=== PATIENT | female | born 1970 | race Two or more races ===

== ENCOUNTER 2025-03-01 10:26 | Inpatient (IN) | payer MEDICAID, SELFPAY ==
[2025-03-01] VITALS (10 sets, daily range): BP systolic 117–134; BP diastolic 68–87; PULSE 94–111; RESP 19–31; TEMP 36.3–37.4; O2SAT 85–99; BMI 31.4; BMI 30.4
--- NOTE | 2025-03-01 11:26 | XR_ITS ---
Examination: PA lateral chest 2 views TECHNIQUE: Upright PA lateral chest 2 views Exam date and time: March 01, 2025 1250 hours INDICATIONS: Coughing congestion one week. FINDINGS: Early bilateral perihilar bibasilar pneumonia. Normal heart size IMPRESSION: Early bilateral perihilar bibasilar pneumonia
--- NOTE | 2025-03-01 11:28 | PD.EDURI ---
Upper Respiratory Inf. RME/HPI General Chief Complaint: Flu Like Symptoms Stated Complaint: COUGH X3 DAYS Time Seen by Provider: 03/01/25 11:26 Source: patient Arrival date/time: 03/01/25 10:26 55-year-old female with no known medical history presents to the emergency room with a chief complaint of cough and intermittent fevers x 3 days. Mode of arrival: ambulatory Limitations: no limitations Related Data Allergies Allergy/AdvReac Type Severity Reaction Status Date / Time No Known Allergies Allergy Verified 03/01/25 10:27 ED Exam General Limitations: Present no limitations Course Orders Category Date Time Status Bedside COVID-19 Antigen Test NOW Care 03/01/25 11:26 Active Bedside Influenza A&B Antigen Test NOW Care 03/01/25 11:26 Active XR chest 2V Stat Exams 03/01/25 11:26 Ordered dexAMETHasone TAB [Decadron Tab] Med 03/01/25 11:26 Discontinued 10 mg PO X1 ONE Upper Respiratory Infection Medications / Prescriptions Medication administrations:: Medication Administration History Discontinued Medications Dexamethasone (Dexamethasone 4 Mg Tablet) 10 mg PO X1 ONE Stop: 03/01/25 11:27 Discharge Plan Patient/Caregiver Discharge Instructions Print Language: Afghan
--- NOTE | 2025-03-01 11:59 | XR_ITS ---
Examination: CTA chest with intravenous contrast 2-D reconstructions 3-D reconstructions, vascular Date and time of exam: March 01, 2025 1445 hours INDICATIONS: Onset chest pain and tachycardia today CTDI: vol (mGy) 10.1 DLP: (mGycm) 331 Technique: Multiple axial sections of the thorax have been obtained. 3 mm slice thickness, from below the hemidiaphragms to above the apices of the lungs. Mediastinal and lung density settings have been obtained. 2-D sagittal and coronal reconstructions. 3-D angiographic renderings, 3-D volume renderings, 3D post processing, vascular maximum intensity projections obtained. Contrast administered is 100 cc Isovue-370. Low dose protocols were performed. One or more of the following dose reduction techniques were used; automated exposure control, adjustment of the mA and/or KV according to patient size, use of iterative reconstruction technique. Findings: Small right tracheobronchial and precarinal lymph nodes No thoracic trachea aneurysm dilatation or dissection No pulmonary artery filling defects No paratracheal tracheobronchial or bronchopulmonary adenopathy Extensive miliary type pneumonic infiltrate throughout both lungs with a 6 mm nodule left base No focal liver or splenic lesions No gallstones noted No pancreatic or adrenal mass Kidneys partially visualized no hydronephrosis IMPRESSION: No pulmonary artery emboli Extensive miliary pneumonia pattern throughout the lungs, differential would include active tuberculosis
--- NOTE | 2025-03-01 12:00 | EKG_ITS ---
[facility] Test Date: 2025-03-01 Pat Name: BIRGIT DODGE Department: Room: - Gender: Female Mill Turner: : 1970 Requested By: Paxton Franco Order Number: [id number] Reading MD: Paxton Franco Measurements Intervals [place] Rate: 97 P: 49 LA: 133 QRS: 1 QRSD: 89 T: -48 QT: 322 QTc: 410 Interpretive Statements SINUS RHYTHM NONSPECIFIC T-WAVE ABNORMALITY No previous ECG available for comparison /store/S0/[id number].pdf
--- NOTE | 2025-03-01 12:03 | EDNOTE_ITS ---
<Statement entered by Sheryl Villa MD - 03/01/25 17:41> As co-signing physician, I was present and available for consult prn. I concur with the plan and care as documented by the midlevel provider. ED General RME/HPI General Chief complaint: Flu Like Symptoms Stated complaint: COUGH X3 DAYS Time Seen by Provider: 03/01/25 11:26 Source: patient Arrival date/time: 03/01/25 10:26 CC: Cough shortness of breath HPI ongoing for 6 days with progressive increase in severity was seen by PCP 4 days ago was started on antibiotics and cough medicine with no relief in fact it is getting worse. Patient denies fever. Patient also denies chest pain. On initial assessment patient was noted to be tachypneic with oxygen saturations at 88% and tachycardic. Mode of arrival: ambulatory Limitations: no limitations Related Data Allergies Allergy/AdvReac Type Severity Reaction Status Date / Time No Known Allergies Allergy Verified 03/01/25 10:27 Review of Systems Review of Systems Narrative Review of Systems: GEN: No fever, no chills, no weight loss EYES: No discharge, no visual changes, no pain HEENT: No ear pain, no congestion, no sore throat PULM: +shortness of breath, + cough, no congestion CV: No chest pain, no dyspnea on exertion, no palpitations GI: No nausea, no vomiting, no diarrhea, no pain, no constipation : No frequency, no urgency, no dysuria MUSC/SKEL: No joint pain, no back pain SKIN: No rash PSYCH: No hallucinations, no depression HEME/LYMPH: No easy bleeding or bruising tendencies NEURO: No weakness, no headache ED Exam Narrative Physical exam: [General: Obese in mild discomfort acute distress Head normocephalic HEENT: Within acceptable limits Neck is supple nontender Chest equal chest rise nontender to palpation Respiratory: Coarse expiratory crackles bibasilarly, tachypneic. CV: Rate rhythm is regular, tachycardic no murmurs rubs or clicks Abdomen is distended secondary to body habitus soft nontender no masses positive bowel sounds all 4 quadrants Back: No CVA tenderness no spinous process tenderness from cervical spine thoracic and lumbar spine Skin: Intact no petechiae rash induration ulceration or crepitus Extremities: Moving all extremity against resistance cap refill less than 2 seconds neurosensory intact. No lower extremity edema Neuro: Awake alert oriented x3 Glascow coma 15 no focal deficits] General Limitations: Present no limitations Course Quality Measures none Orders Category Date Time Status Bedside COVID-19 Antigen Test NOW Care 03/01/25 11:26 Active Bedside COVID-19 Antigen Test NOW Care 03/01/25 15:14 Active Bedside Influenza A&B Antigen Test NOW Care 03/01/25 11:26 Active Bedside Influenza A&B Antigen Test NOW Care 03/01/25 15:[address] Screening NOW Care 03/01/25 12:00 Active EKG (ED ONLY) *Do not use* NOW Care 03/01/25 12:[address] angio chest Stat Exams 03/01/25 11:59 Completed EKG (ED Only) Stat Exams 03/01/25 12:00 Draft XR chest 2V Stat Exams 03/01/25 11:26 Completed B-Type Natriuretic Peptide Stat Lab 03/01/25 12:12 Completed CBC Stat Lab 03/01/25 12:12 Completed Cocci Serology IgM with reflex to IgG [Cocci Serology, Lab 03/01/25 12:12 Results Unk History] Stat Comprehensive Metabolic Panel Stat Lab 03/01/25 12:12 Completed Drug Screen,Urine Stat Lab 03/01/25 12:00 Completed HCG Qualitative,Urine Stat Lab 03/01/25 12:25 Completed LDH (Lactate Dehydrogenase) Stat Lab 03/01/25 12:12 Completed Magnesium Stat Lab 03/01/25 12:12 Completed Partial Thromboplastin Time Stat Lab 03/01/25 12:12 Completed Prothrombin Time with INR Stat Lab 03/01/25 12:12 Completed Quantiferon-TB* Stat Lab 03/01/25 15:15 Ordered Troponin I Stat Lab 03/01/25 12:12 Completed Urinalysis Stat Lab 03/01/25 12:25 Completed Urinalysis, C/S if Indicated Stat Lab 03/01/25 12:25 Completed ALBUTEROL RT 0.5ml [Proventil Rt 0.5ml] Med 03/01/25 13:10 Discontinued 10 mg INH X1 ONE Albuterol/Ipratr Rt Oriana [Duoneb Rt Oriana] Med 03/01/25 11:59 Discontinued 3 ml INH X1 ONE Sodium Chloride Rt Oriana 0.9% [NS Rt Oriana 0.9%] Med 03/01/25 13:10 Active 3 ml INH PRN PRN cefTRIAXone/D5w 1gm IV premix [Rocephin/D5w 1gm IV Med 03/01/25 12:07 Discontinued premix] 1 gm in 50 ml IV X1 dexAMETHasone TAB [Decadron Tab] Med 03/01/25 11:26 Discontinued 10 mg PO X1 ONE Vital Signs Vital signs: Vital Signs Temperature 99.3 F 03/01/25 11:39 Pulse Rate 105 H 03/01/25 11:39 Respiratory Rate 19 03/01/25 11:39 Blood Pressure 127/68 03/01/25 11:39 Pulse Oximetry (%) 85 L 03/01/25 11:39 Oxygen Delivery Method Room Air 03/01/25 11:39 [facility] Patient data External records reviewed:: [facility] previous records Clinical information provided by:: patient Social determinants that could affect healthcare access:: none Patient has the following chronic illnesses:: Diabetes How is presenting disease/condition affected by chronic disease/condition?: u neffected by Evaluation data The following diagnostics were reviewed and interpreted by me:: lab results, radiology exam(s) and EKG tracing(s) Lab and/or radiology exams considered but not ordered:: EKG performed at 1235 shows ventricular rate of 97 WA interval 133 QRS of 89 QTc of 377 is a sinus rhythm nonspecific T wave abnormality. CBC shows no leukocytosis anemia thrombocytopenia Coags show PT of 12.6 INR PTT within acceptable limits. BMP shows no acute electrolyte imbalances renal impairment transaminitis or T. bili elevation Troponin is within acceptable limits BMP is within acceptable limits. Urine is negative for UTI UDS is negative. CT angio chest shows the patient has not miliary pneumonia pattern. Need to rule out tuberculosis and valley fever. Interpretation Summary: Patient is requiring an additional hour-long breathing treatment secondary to shortness of breath. The patient is now on a simple mask at 6 L with oxygen saturation 91-92%. I am concerned that this patient continues to have hypoxemia. Patient remains mildly tachypneic and mildly tachycardic with a progressive increase in oxygen demand. Currently the patient is on simple mask at 6+ liters. Patient's case discussed with , who agrees to accept the patient for admission for pneumonia hypoxemia Medications Medications considered but not ordered:: None Medication administrations:: Medication Administration History Sodium Chloride (Sodium Chloride Rt Oriana 0.9% 3 Ml Nebu) 3 ml INH PRN PRN PRN Reason: SOLN Stop: 03/31/25 13:09 Discontinued Medications Albuterol (Albuterol Rt 2.5 Mg/0.5 Ml Nebu) 10 mg INH X1 ONE Stop: 03/01/25 13:11 Last Admin: 03/01/25 13:19 Dose: 10 mg Documented By: SUMIT Albuterol/Ipratropium (Albuterol/Ipratropium (Duoneb) Rt Oriana 3 Ml Nebu) 3 ml INH X1 ONE Stop: 03/01/25 12:00 Last Admin: 03/01/25 12:29 Dose: 3 ml Documented By: GLENNA Dexamethasone (Dexamethasone 4 Mg Tablet) 10 mg PO X1 ONE Stop: 03/01/25 11:27 Last Admin: 03/01/25 12:10 Dose: 10 mg Documented By: KARSON Ceftriaxone Sodium/Dextrose (Rocephin/D5w 1gm Iv Premix) 1 gm in 50 mls @ 100 mls/hr IV X1 ONE Stop: 03/01/25 12:36 Last Infusion: 03/01/25 13:23 Dose: Infused Documented By: Admin: 03/01/25 12:53 Dose: 100 mls/hr Documented By: KARSON None Consultations Consultation(s) initiated? (list below): No Diagnosis Differential Diagnosis ED Complaint MDM: Cough, pneumonia, shortness of breath, hypoxemia Most likely diagnosis given after review of the tests above:: Pneumonia, hypoxemia, shortness of breath, cough Admission Indicated Admission indicated?: indicated Explain why admission is indicated or not indicated:: Requires further medical management Admission Request Was there a request for admission?: No Disposition Plan Disposition Plan: Admit Medical Decision Making Differential Diagnosis Differential Diagnosis: Cough, pneumonia, shortness of breath, hypoxemia Lab Data 03/01/25 12:12 03/01/25 12:12 Labs: Lab Results 03/01/25 03/01/25 03/01/25 Range/Units 12:00 12:12 12:25 WBC 7.0 (3.6-11.0) Thou/mm3 RBC 4.22 (4.00-5.20) Miln/mm3 Hgb 12.4 (12.0-16.0) g/dL Hct 37.7 (36.0-46.0) % MCV 89 (80-100) fL MCH 29.4 (25.0-35.0) pg MCHC 32.9 (31.0-37.0) g/dl RDW Std Deviation 40.7 (36.4-46.3) fL Plt Count 258 (140-440) Thou/mm3 Neut % (Auto) 85 H (37-80) % Lymph % (Auto) 9 L (10-50) % [place] % (Auto) 5 (0-12) % Eos % (Auto) 1 (0-10) % Baso % (Auto) 0 (0-2.5) % Neut # (Auto) 5.9 (1.8-7.7) Thou/mm3 Lymph # (Auto) 0.7 L (1.0-4.8) Thou/mm3 [place] # (Auto) 0.3 (0.0-0.8) Thou/mm3 Eos # (Auto) 0.0 (0.0-0.5) Thou/mm3 Baso # (Auto) 0.0 (0.0-0.2) Thou/mm3 Immature Gran # (Auto) 0.05 H (0.00-0.00) Thou/mm3 Absolute Nucleated RBC 0.00 (0.00-0.00) Thou/mm3 Immature Gran % 1 H (0-0) % Nucleated RBC % 0 (0) /100 WBC PT 12.6 H (9.0-12.2) Seconds INR 1.2 (0.9-1.3) APTT 34.2 (22.0-36.0) Seconds Sodium 140 (136-145) mMol/L Potassium 3.5 (3.4-5.1) mMol/L Chloride 104 (98-107) mMol/L Carbon Dioxide 27.7 (20.0-31.0) mMol/L Anion Gap 8 (7-16) BUN 6 L (9-23) mg/dL Creatinine 0.7 (0.6-1.3) mg/dL Estim Creat Clear Calc 96.9 (>60) mL/min eGFR > 60 (60 - ) See Note BUN/Creatinine Ratio 9 L (12-20) Ratio Glucose 138 H (74-106) mg/dL Calculated Osmolality 279 (275-295) Calcium 9.4 (8.3-10.6) mg/dL Corrected Calcium 9.4 (8.5-10.1) mg/dL Magnesium 2.2 (1.6-2.6) mg/dL Total Bilirubin 0.4 (0.3-1.2) mg/dL AST 28 (0-34) U/L ALT 24 (10-49) U/L Alkaline Phosphatase 119 H (46-116) U/L Lactate Dehydrogenase 234 (120-246) U/L Troponin I < 0.002 (0.0-0.045) ng/mL B-Natriuretic Peptide < 20 (0-100) pg/mL Total Protein 7.4 (5.7-8.2) gm/dL Albumin 4.6 (3.5-5.0) gm/dL Globulin 2.8 (2.3-3.5) gm/dL Albumin/Globulin Ratio 1.6 (1.2-2.2) Ur Collection Type Clean Catch Urine Color Colorless A (Lt Yel-Yel) Urine Clarity Clear (Clear/Hazy) Urine pH 6.5 (5.0-7.0) Ur Specific [place] 1.007 (1.001-1.035) Urine Protein Negative (Neg - Trace) Urine Glucose (UA) Negative (Negative) Urine Ketones Negative (Negative) Urine Blood Negative (Negative) Urine Nitrite Negative (Negative) Urine Bilirubin Negative (Negative) Urine Urobilinogen (Auto) Negative (0.0-1.0) mg/dL Ur Leukocyte Esterase Negative (Negative) Urine RBC < 1 (0-3) /hpf Urine WBC < 1 (0-5) /hpf Ur Squamous Epith Cells 0 (0-5) /hpf Urine Bacteria None (None) Ur Culture Indicated? Not Indicated Urine HCG, Qual Negative Urine Opiates Screen Negative (Negative) Urine Fentanyl Screen Negative (Negative) Ur Barbiturates Screen Negative (Negative) U Amphetamin/Meth Scrn Negative (Negative) U Benzodiazepines Scrn Negative (Negative) U Cocaine Metab Screen Negative (Negative) U Marijuana (THC) Screen Negative (Negative) Coccidioides IgM Ab Negative (Negative) Discharge Plan Plan Patient Disposition: Other Care w/in Hosp ([facility]) Patient condition on transfer: Stable Prescriptions/Referrals Referrals: Mere Estrada NP [Primary Care Provider] - In 1 week Problem List Clinical Impression: Cough, Pneumonia, Shortness of breath, Hypoxemia Patient/Caregiver Discharge Instructions Print Language: Portuguese Stand Alone Forms: [employer] Award Info., Patient Portal Info Letter PA/WAREHOUSE HANDLER Supervising Physician PA/WAREHOUSE HANDLER Supervising Physician: Paxton Walker ENP
[2025-03-01] MEDS: dexAMETHasone 4 MG TABLET 10 MG PO (12:10)
[2025-03-01 12:27] LABS: Basophils % (Auto) 0 % (0-2.5); Eosinophils % (Auto) 1 % (0-10); Hematocrit 37.7 % (36.0-46.0); Hemoglobin 12.4 g/dL (12.0-16.0); Immature Granulocytes % (Auto) 1 % (0-0); Immature Granulocytes Auto 0.05 Thou/mm3 (0.00-0.00); Lymphocytes # (Auto) 0.7 Thou/mm3 (1.0-4.8); Lymphocytes % (Auto) 9 % (10-50); Mean Corpuscular HGB Conc 32.9 g/dl (31.0-37.0); Mean Corpuscular Hemoglobin 29.4 pg (25.0-35.0); Mean Corpuscular Volume 89 fL (80-100); Monocytes # (Auto) 0.3 Thou/mm3 (0.0-0.8); Monocytes % (Auto) 5 % (0-12); Neutrophils # (Auto) 5.9 Thou/mm3 (1.8-7.7); Neutrophils % (Auto) 85 % (37-80); Nucleated Red Blood Cell % 0 /100 WBC (0); Platelet Count 258 Thou/mm3 (140-440); RDW Standard Deviation 40.7 fL (36.4-46.3); Red Blood Count 4.22 Miln/mm3 (4.00-5.20)
[2025-03-01] MEDS: ALBUTEROL/IPRATROPIUM (Duoneb) RT SOL 3 ML NEBU INH (12:29)
[2025-03-01 12:33] LABS: Collection Type, Urine Clean Catch; Squamous Epithelial Cell,Urine 0 /hpf (0-5)
--- NOTE | 2025-03-01 12:42 | PD.EDRME ---
Rapid Medical Screening Exam E Arrival date/time: 03/01/25 10:26 55-year-old female with no known medical history presents to the emergency room with a chief complaint of cough and intermittent fevers x 3 days. I have greeted and performed a focused initial assessment of this patient. A comprehensive ED assessment and evaluation of the patient, analysis of all test results, and completion of the medical decision making process will be conducted by additional ED providers. Chief Complaint: Flu Like Symptoms Time Seen by Provider: 03/01/25 11:26 Vital signs: Vital Signs Temperature 99.3 F 03/01/25 11:39 Pulse Rate 105 H 03/01/25 11:39 Respiratory Rate 19 03/01/25 11:39 Blood Pressure 127/68 03/01/25 11:39 Pulse Oximetry (%) 85 L 03/01/25 11:39 Oxygen Delivery Method Room Air 03/01/25 11:39 Vital signs reviewed by provider: Yes
[2025-03-01 12:49] LABS: Alanine Aminotransferase 24 U/L (10-49); Albumin, Serum 4.6 gm/dL (3.5-5.0); Albumin/Globulin Ratio 1.6 (1.2-2.2); Alkaline Phosphatase 119 U/L (46-116); Anion Gap 8 (7-16); Aspartate Amino Transferase 28 U/L (0-34); BUN/Creatinine Ratio 9 Ratio (12-20); Bilirubin,Total 0.4 mg/dL (0.3-1.2); Blood Urea Nitrogen 6 mg/dL (9-23); Calcium 9.4 mg/dL (8.3-10.6); Calcium (Corrected) 9.4 mg/dL (8.5-10.1); Carbon Dioxide 27.7 mMol/L (20.0-31.0); Chloride 104 mMol/L (98-107); Creatinine (Component) 0.7 mg/dL (0.6-1.3); Estimated Creatinine Clearance 96.9 mL/min (>60); Globulin 2.8 gm/dL (2.3-3.5); Glucose 138 mg/dL (74-106); LDH (Lactate Dehydrogenase) 234 U/L (120-246); Magnesium 2.2 mg/dL (1.6-2.6); Osmolality,Calculated 279 (275-295); Potassium 3.5 mMol/L (3.4-5.1); Sodium 140 mMol/L (136-145); Total Protein 7.4 gm/dL (5.7-8.2); Troponin I < 0.002 ng/mL (0.0-0.045); eGFR > 60 See Note
[2025-03-01 12:51] LABS: Bilirubin,Urine Negative (Negative); Blood,Urine Negative (Negative); Clarity,Urine Clear (Clear/Hazy); Color,Urine Colorless (Lt Yel-Yel); Culture Indicated,Urine Not Indicated; Glucose, Urine Negative (Negative); Ketones,Urine Negative (Negative); Leukocyte Esterase,Urine Negative (Negative); Nitrite,Urine Negative (Negative); PH,Urine 6.5 (5.0-7.0); Protein,Urine Negative (Neg - Trace); RBC,Urine < 1 /hpf (0-3); Specific Gravity,Urine 1.007 (1.001-1.035); Urobilinogen,Urine Negative mg/dL (0.0-1.0); WBC,Urine < 1 /hpf (0-5)
[2025-03-01] MEDS: cefTRIAXone/D5w 1gm IV premix 1 GM/50 ML BAG IV (12:53)
[2025-03-01 12:54] LABS: INR 1.2 (0.9-1.3); Partial Thromboplastin Time 34.2 Seconds (22.0-36.0); Prothrombin Time 12.6 Seconds (9.0-12.2)
[2025-03-01 12:56] LABS: B-Type Natriuretic Peptide < 20 pg/mL (0-100)
[2025-03-01 13:00] LABS: HCG Qualitative,Urine Negative
[2025-03-01 13:12] LABS: Amphetamine/Methamp Scrn,U Negative (Negative); Barbiturate Screen,Urine Negative (Negative); Benzodiazepines Screen,Urine Negative (Negative); Benzoylecgonine Screen, Ur Negative (Negative); Fentanyl Screen,Urine Negative (Negative); Opiate Screen,Urine Negative (Negative); THC Screen,Urine Negative (Negative)
[2025-03-01] MEDS: ALBUTEROL RT 2.5 MG/0.5 ML NEBU 10 MG INH (13:19)
--- NOTE | 2025-03-01 14:05 | PC.NURSE ---
CALLED CT AND SPOKE W/ JUS RE: WHEN PT WILL BE TAKEN. SHE IS NEXT. PROVIDER INFORMED.
[2025-03-01 14:49] LABS: Cocci Serology, IgM Negative (Negative)
--- NOTE | 2025-03-01 16:37 | ESHP_ITS ---
<Statement entered by Lizandro Gilmore MD - 03/03/25 07:58> Senior Resident Attestation: I supervised/discussed management plan with sport intern physician Dr. Griffith, and was involved in the care of this patient. I personally saw and examined the patient and discussed the assessment and plan with the entire medicine team, including my attending. I agree with the assessment and plan as documented. Patient's care was discussed with attending physician, Dr. Owen. Lizandro Gilmore MD PGY-2. Documentation for date of: 03/01/25 HPI History of Present Illness History of present illness: 55-year-old female with significant past medical history of diabetes mellitus on metformin presented to the hospital with chief complaints of fever, shortness of breath and cough since 4 days. Patient was apparently not been 4 days ago, later patient developed cough with expectoration which is yellow in color, denies hemoptysis which is gradually worsening for which she went to the [facility] and was started on antibiotics, amoxicillin/clavulanate. Despite taking antibiotics, cough syrup cough and shortness of breath continued to worsen and the patient also started to develop febrile episodes for which patient came to the ED. Denies chest pain, nausea, vomiting, abdominal pain, palpitations, sick contacts, recurrent respiratory tract infections Patient immigrated from [place] 4 years ago and since then stayed here, works in [employer] ED course: - vitals at the time of admission are blood pressure 127/68 mmHg, pulse rate 105 bpm, respiratory rate 19/min, Temperature 99.3 ?F, SpO2 85% with room air - Labs showed WBC 7, hemoglobin 12.4, platelets 258, sodium 140, potassium 3.5, BUN 6, creatinine 0.7, BNP <20 - Urine toxicology tested negative - Chest CTA showed extensive miliary type pneumonia, negative for pulmonary embolism Past medical history: Diabetes mellitus Past surgical history: 2 sections Social history: Denies smoking, alcohol, other illicit drug abuse. Lives with at home Allergies: NKDA Review of Systems Review of Systems Systems Reviewed: All systems reviewed, normal except as documented Exam Vital Signs Temp Pulse Resp BP Pulse Ox O2 Del Method O2 Flow Rate 98 F 111 H 24 H 129/76 89 L Oxy Mask 7 03/01/25 14:16 03/01/25 14:16 03/01/25 14:16 03/01/25 14:16 03/01/25 14:16 03/01/25 14:16 03/01/25 14:16 Narrative Exam General: Awake. On oxy mask HEENT: Normocephalic, atraumatic, mucous membranes moist. Heart: Regular rate and rhythm, no murmurs. Lungs: bilateral fine inspiratory crackles heard more on the right basilar areas Abdomen: Soft, nondistended, nontender, positive bowel sounds. ?No guarding or rebound tenderness. Neurologic: Alert and oriented x3, no gross neurological deficit, and patient able to move all 4 extremities. Extremities: No edema. Skin: No rash or ecchymoses. Results: Labs 03/02/25 04:57 03/02/25 04:57 Labs: Short CBC 03/01/25 Range/Units 12:12 WBC 7.0 (3.6-11.0) Thou/mm3 Hgb 12.4 (12.0-16.0) g/dL Hct 37.7 (36.0-46.0) % Plt Count 258 (140-440) Thou/mm3 BMP 03/01/25 12:12 Sodium 140 Potassium 3.5 Chloride 104 Carbon Dioxide 27.7 BUN 6 L Creatinine 0.7 Glucose 138 H Calcium 9.4 Cardiac Enzymes 03/01/25 Range/Units 12:12 Troponin I < 0.002 (0.0-0.045) ng/mL Liver Function 03/01/25 Range/Units 12:12 Total Bilirubin 0.4 (0.3-1.2) mg/dL AST 28 (0-34) U/L ALT 24 (10-49) U/L Alkaline Phosphatase 119 H (46-116) U/L Albumin 4.6 (3.5-5.0) gm/dL Urine 03/01/25 Range/Units 12:25 Urine Color Colorless A (Lt Yel-Yel) Urine Clarity Clear (Clear/Hazy) Urine pH 6.5 (5.0-7.0) Ur Specific [place] 1.007 (1.001-1.035) Urine Protein Negative (Neg - Trace) Urine Glucose (UA) Negative (Negative) Quality Measures Quality Measures none Medications Home Medications and Allergies Allergies Allergy/AdvReac Type Severity Reaction Status Date / Time No Known Allergies Allergy Verified 03/01/25 10:27 Visit Medications Acetaminophen (Acetaminophen 325 Mg Tablet) 650 mg PO Q6H PRN PRN Reason: Fever >100.3 Stop: 03/31/25 16:25 Docusate Sodium (Docusate Sod 100 Mg Capsule) 100 mg PO QDAY PRN; Protocol PRN Reason: CONSTIPATION Stop: 03/31/25 16:25 Enoxaparin Sodium (Enoxaparin Sod Inj 40 Mg/0.4 Ml Syringe) 40 mg SC QDAY MATEO Stop: 03/16/25 08:59 Ceftriaxone Sodium/Dextrose (Rocephin/D5w 1gm Iv Premix) 50 mls @ 100 mls/hr IV QDAY MATEO Stop: 03/08/25 16:33 Ondansetron HCl (Ondansetron Inj 2 Mg/Ml Inj 2 Ml) 4 mg IV Q6H PRN; Protocol PRN Reason: NAUSEA OR VOMITING Stop: 03/31/25 16:25 Pantoprazole Sodium (Pantoprazole 40 Mg Tablet) 40 mg PO QDAY MATEO Stop: 04/01/25 08:59 Sodium Chloride (Sodium Chloride Rt Oriana 0.9% 3 Ml Nebu) 3 ml INH PRN PRN PRN Reason: SOLN Stop: 03/31/25 13:09 Sodium Chloride (Sodium Chloride Rt 10% 15 Ml Nebu) 5 ml INH X1 ONE Stop: 03/01/25 16:37 Discontinued Medications Albuterol (Albuterol Rt 2.5 Mg/0.5 Ml Nebu) 10 mg INH X1 ONE Stop: 03/01/25 13:11 Last Admin: 03/01/25 13:19 Dose: 10 mg Albuterol/Ipratropium (Albuterol/Ipratropium (Duoneb) Rt Oriana 3 Ml Nebu) 3 ml INH X1 ONE Stop: 03/01/25 12:00 Last Admin: 03/01/25 12:29 Dose: 3 ml Dexamethasone (Dexamethasone 4 Mg Tablet) 10 mg PO X1 ONE Stop: 03/01/25 11:27 Last Admin: 03/01/25 12:10 Dose: 10 mg Ceftriaxone Sodium/Dextrose (Rocephin/D5w 1gm Iv Premix) 1 gm in 50 mls @ 100 mls/hr IV X1 ONE Stop: 03/01/25 12:36 Last Infusion: 03/01/25 13:23 Dose: Infused Sodium Chloride (Sodium Chloride Rt 10% 15 Ml Nebu) 5 ml INH X1 ONE Stop: 03/01/25 16:27 Assessment & Plan Plan 55-year-old female with significant past medical history of diabetes mellitus on metformin presented to the hospital with chief complaints of fever, shortness of breath and cough since 4 days and admitted for acute hypoxic respiratory failure secondary to bilateral pneumonia, to rule out TB # Acute hypoxic respiratory failure # Bilateral pneumonia # Community-acquired pneumonia versus to rule out tuberculosis - presented to the hospital with chief complaints of fever, shortness of breath and cough with expectoration since 4 days -Patient saw primary care provider in [facility] and received antibiotics, amoxicillin and clavulanate - As her symptoms got worsened despite using antibiotics patient presented to the hospital - Vitals at the time of admission showed SpO2 85% with room air, pulse rate 105 bpm - Chest x-ray showed bilateral infiltrates - CTA chest showed bilateral miliary pattern infiltrates and negative for pulmonary emboli - Coccidioides IgM antibodies negative - Influenza, COVID testing negative Plan - Sputum sent for Gram stain and cultures, AFB send out - Blood cultures are sent - TB QuantiFERON test was sent - Airborne and droplet precautions - Started on ceftriaxone and azithromycin [03/01- - Nebulizations as needed - Oxygen - Incentive spirometry - Promethazine/dexamethasone as needed every 4 hourly # History of diabetes mellitus - Patient is using metformin 500 Mg twice daily at home - HbA1c is ordered - Will start insulin sliding scale if needed Hospital Maintenance: Dispo: Med tele DVT ppx: Lovenox GI ppx: Protonix Diet: Carbohydrate consistent IV lines: Peripheral Code status: Full code Patient plan of care was discussed with the attending physician, Dr. Owen and senior resident Dr. Deirdre Griffith, PGY1 Attending Provider Attestation/Addendum I attest that I was physically present for the evaluation, physical examination, lab and imaging review of the patient with the residents. I discussed the case with the residents and agree with the findings and plans of care as documented above. Patient is a 55 years old female with past medical history of diabetes who presented to the ED with complaint of shortness of breath, fever and cough for 4 days. About 4 days ago she started having cough with sputum, yellow without blood. Patient went to see her doctor and was prescribed antibiotics. Despite antibiotics, her symptoms did not improve and she decided to visit the ED. In the ED, her pulse was 105, was started on oxygen via oxy mask. Lab results show WBC of 7. BNP of less than 20. Chest CTA was done which showed extensive miliary type pneumonia and was negative for PE. We will admit the patient for management of acute hypoxic respiratory failure, bilateral pneumonia. Started on IV Rocephin and azithromycin. With the CT finding, we will also order TB QuantiFERON to rule out tuberculosis. Started on insulin regimen for diabetes. Irwin Owen MD
[2025-03-01 17:29] LABS: Base Excess 3 (-3-3); HCO3 28 mEq/L (20-26); Inspired O2, VO2 Liters 15 L/min; O2 Saturation 68 % (91-98); PCO2 46 mmHg (32.0-48.0); pH, Arterial 7.39 (7.35-7.45)
--- NOTE | 2025-03-01 17:40 | PC.NURSE ---
CALL FROM JERRY IN LAB RE: ABG. HE SAID IT WAS A VENOUS DRAW BECAUSE OF THE PO2 37 AND O2 SAT 68. INFORMED DR. HERNANDEZ BUT HE SAID TO HAVE LAB RECORD RESULTS AND THEY WOULD REVIEW TO HOW TO PROCEED. NOTED.
[2025-03-01 17:42] LABS: Allen Test Performed/OK; Puncture Site Right Radial
[2025-03-01 17:43] LABS: PO2 37 mmHg (83-108)
--- NOTE | 2025-03-01 17:50 | PC.NURSE ---
CALLED DR. ZHANG RE: CEFTRIAXONE ORDER. INFORMED MD THAT PT HAD ALREADY RECEIVED CEFTRIAXONE AT 14:30. HE WILL REWRITE THE ORDER FOR IT TO BE GIVEN LATER.
[2025-03-01] MEDS: AZITHROMYCIN INJ 500 MG in SODIUM CHLORIDE 0.9% 250 ML 250 ML 250 MG IV (17:59)
--- NOTE | 2025-03-01 18:17 | PC.NURSE ---
REPORT CALLED TO ANG MELENDEZ ON [facility]. PREPARING TO TRANSPORT PT TO ROOM 366.
--- NOTE | 2025-03-01 18:24 | PC.RT ---
AFB collected and sent to lab at this time.
[2025-03-01 18:28] LABS: Cult AFB Sendout- Sputum* See Sep Rpt
--- NOTE | 2025-03-01 18:30 | PC.NURSE ---
PT TRANSFERRED TO ROOM 366 ON [facility] VIA GURNEY ACCOMPANIED BY RN AND . CARE ENDORSED TO YUE CARLOS.
[2025-03-01] MEDS: ACETAMINOPHEN 325 MG TABLET 650 MG PO (20:00)
[2025-03-02] VITALS (14 sets, daily range): BP systolic 107–133; BP diastolic 70–78; PULSE 78–104; RESP 16–29; TEMP 36.3–37.2; O2SAT 91–97
[2025-03-02 05:42] LABS: Quantiferon-TB* See Sep Rpt
[2025-03-02 05:56] LABS: Basophils % (Auto) 0 % (0-2.5); Eosinophils % (Auto) 0 % (0-10); Hematocrit 35.6 % (36.0-46.0); Hemoglobin 11.9 g/dL (12.0-16.0); Immature Granulocytes % (Auto) 1 % (0-0); Immature Granulocytes Auto 0.06 Thou/mm3 (0.00-0.00); Lymphocytes # (Auto) 0.6 Thou/mm3 (1.0-4.8); Lymphocytes % (Auto) 10 % (10-50); Mean Corpuscular HGB Conc 33.4 g/dl (31.0-37.0); Mean Corpuscular Hemoglobin 30.4 pg (25.0-35.0); Mean Corpuscular Volume 91 fL (80-100); Monocytes # (Auto) 0.2 Thou/mm3 (0.0-0.8); Monocytes % (Auto) 3 % (0-12); Neutrophils # (Auto) 5.6 Thou/mm3 (1.8-7.7); Neutrophils % (Auto) 86 % (37-80); Nucleated Red Blood Cell % 0 /100 WBC (0); Platelet Count 307 Thou/mm3 (140-440); RDW Standard Deviation 40.9 fL (36.4-46.3); Red Blood Count 3.91 Miln/mm3 (4.00-5.20); White Blood Count 6.5 Thou/mm3 (3.6-11.0)
[2025-03-02 06:21] LABS: Anion Gap 10 (7-16); BUN/Creatinine Ratio 18 Ratio (12-20); Blood Urea Nitrogen 11 mg/dL (9-23); Calcium 9.5 mg/dL (8.3-10.6); Carbon Dioxide 25.7 mMol/L (20.0-31.0); Cardiac Risk Estimate 4.7 RATIO (3.7-5.6); Chloride 105 mMol/L (98-107); Cholesterol 177 mg/dL (132-200); Creatinine (Component) 0.6 mg/dL (0.6-1.3); Estimated Creatinine Clearance 115.5 mL/min (>60); Glucose 173 mg/dL (74-106); HDL Cholesterol 38 mg/dL (40-60); LDL Cholesterol,Calculated 118 mg/dL (0-130); Osmolality,Calculated 284 (275-295); Sodium 141 mMol/L (136-145); Thyroid Stimulating Hormone 0.24 uIU/mL (0.55-4.78); Triglycerides 107 mg/dL (30-150); eGFR > 60 See Note
[2025-03-02 06:23] LABS: Glucose Estimated Average 128 mg/dL (80-131); Hemoglobin A1C 6.1 % Hgb (4.8-6.0)
[2025-03-02] MEDS: cefTRIAXone/D5w 1gm IV premix 1 GM/50 ML BAG IV (08:50)
[2025-03-02] MEDS: PANTOPRAZOLE 40 MG TABLET PO (08:50)
[2025-03-02] MEDS: ENOXAPARIN SOD INJ 40 MG/0.4 ML SYRINGE SC (08:50)
[2025-03-02 09:44] LABS: Base Excess 4 (-3-3); HCO3 28 mEq/L (20-26); Inspired Oxygen, FIO2 80 %; O2 Saturation 100 % (91-98); PCO2 39 mmHg (32.0-48.0); PO2 122 mmHg (83-108); pH, Arterial 7.47 (7.35-7.45)
[2025-03-02 09:53] LABS: Allen Test Not Performed; Puncture Site Left Radial
--- NOTE | 2025-03-02 10:33 | PC.SS ---
Patient Laura Wing is a 55 Year old female admitted for Acute Hypoxic respiratory failure. SS met with patient at bedside to discuss discharge plan. Patient reports she lives at home with her , Robert. Patient reports her daughter, Marion Wing is surrogate decision maker [phone]. Patient reports that prior to admission she was able to ambulate independently, patient does not utilize any source of DME to assist with ambulation. Choice of pharmacy is [facility]. PCP is Mere Estrada. At time of discharge patient will return home. Next of kin, Daughter, Marion Wing Discharge plan: Home
[2025-03-02 12:41] LABS: Cocci Serology, IgG Negative (Negative)
[2025-03-02] MEDS: AZITHROMYCIN INJ 500 MG in SODIUM CHLORIDE 0.9% 250 ML 250 ML 250 MG IV (13:56)
--- NOTE | 2025-03-02 16:04 | PD.RESPRO ---
Documentation for date of: 03/02/25 Subjective Subjective Interval history: Patient is seen and examined at bedside No acute overnight events. Still complaining of cough and shortness of breath Patient is on high flow oxygen at the time of examination, 80% FiO2 and 25 L/min ABG done this morning showed pH 7.47, [id number], pO2 122, bicarb 28, oxygen saturation 100% Labs showed hemoglobin 11.9, HbA1c 6.1, TSH 0.24, free T41.7 Will continue ceftriaxone and azithromycin for now. Sputum cultures are still pending Started on insulin sliding scale Exam Vital Signs Temp Pulse Resp BP Pulse Ox O2 Del Method O2 Flow Rate 97.5 F 85 22 H 107/70 92 L High Flow Nasal Cannula 03/02/25 12:00 03/02/25 14:35 03/02/25 14:35 03/02/25 12:00 03/02/25 14:35 03/02/25 12:00 03/02/25 14:35 FiO2 45 03/02/25 14:35 Narrative Exam General: Awake. On oxy mask HEENT: Normocephalic, atraumatic, mucous membranes moist. Heart: Regular rate and rhythm, no murmurs. Lungs: bilateral fine inspiratory crackles heard more on the right basilar areas Abdomen: Soft, nondistended, nontender, positive bowel sounds. ?No guarding or rebound tenderness. Neurologic: Alert and oriented x3, no gross neurological deficit, and patient able to move all 4 extremities. Extremities: No edema. Skin: No rash or ecchymoses. Objective Labs 03/02/25 04:57 03/02/25 04:57 Labs: Laboratory Results - last 24 hr 03/01/25 03/01/25 03/02/25 12:12 17:22 04:57 WBC 6.5 RBC 3.91 L Hgb 11.9 L Hct 35.6 L MCV 91 MCH 30.4 MCHC 33.4 RDW Std Deviation 40.9 Plt Count 307 D Neut % (Auto) 86 H Lymph % (Auto) 10 [place] % (Auto) 3 Eos % (Auto) 0 Baso % (Auto) 0 Neut # (Auto) 5.6 Lymph # (Auto) 0.[address] [place] # (Auto) 0.2 Eos # (Auto) 0.0 Baso # (Auto) 0.0 Immature Gran # (Auto) 0.06 H Absolute Nucleated RBC 0.00 Immature Gran % 1 H Nucleated RBC % 0 Puncture Site Right Radial ABG pH 7.39 ABG pCO2 46 ABG pO2 37 L* ABG HCO3 28 H ABG O2 Saturation 68 L ABG Base Excess 3 Oxygen Liter Flow 15 FiO2 Sodium 141 Potassium 4.0 D Chloride 105 Carbon Dioxide 25.7 Anion Gap 10 BUN 11 Creatinine 0.6 Estim Creat Clear Calc 115.5 eGFR > 60 BUN/Creatinine Ratio [address] Glu mg/dL 128 Hemoglobin A1c 6.1 H Calculated Osmolality 284 Calcium 9.5 Triglycerides 107 Cholesterol 177 LDL Cholesterol, Calc 118 HDL Cholesterol 38 L Cholesterol/HDL Ratio 4.7 TSH 0.24 L Free T4 1.70 Coccidioides IgG Ab Negative 03/02/25 09:30 WBC RBC Hgb Hct MCV MCH MCHC RDW Std Deviation Plt Count Neut % (Auto) Lymph % (Auto) [place] % (Auto) Eos % (Auto) Baso % (Auto) Neut # (Auto) Lymph # (Auto) [place] # (Auto) Eos # (Auto) Baso # (Auto) Immature Gran # (Auto) Absolute Nucleated RBC Immature Gran % Nucleated RBC % Puncture Site Left Radial ABG pH 7.47 H ABG pCO2 39 ABG pO2 122 H D ABG HCO3 28 H ABG O2 Saturation 100 H ABG Base Excess 4 H Oxygen Liter Flow FiO2 80 Sodium Potassium Chloride Carbon Dioxide Anion Gap BUN Creatinine Estim Creat Clear Calc eGFR BUN/Creatinine Ratio Glucose Estimated Ave Glu mg/dL Hemoglobin A1c Calculated Osmolality Calcium Triglycerides Cholesterol LDL Cholesterol, Calc HDL Cholesterol Cholesterol/HDL Ratio TSH Free T4 Coccidioides IgG Ab ABG Interpretation ABG results: 03/01/25 03/02/25 17:22 09:30 ABG pH 7.39 7.47 H ABG pCO2 46 39 ABG pO2 37 L* 122 H D ABG HCO3 28 H 28 H ABG O2 Saturation 68 L 100 H ABG Base Excess 3 4 H Quality Measures Quality Measures none Assessment & Plan Assessment Current Active Medications: Generic Name Dose Route Start Last Admin Trade Name Freq PRN Reason Stop Dose Admin Acetaminophen 650 mg 03/01/25 16:26 03/01/25 20:00 Acetaminophen 325 Mg Tablet PO 03/31/25 16:25 650 mg Q6H PRN Administration Fever >100.3 Albuterol/Ipratropium 3 ml 03/01/25 18:05 Albuterol/Ipratropium (Duoneb) Rt Oriana 3 Ml Nebu INH 03/31/25 18:59 Q6HRRT PRN sob or wheeze Dextrose 25 ml 03/02/25 08:45 Dextrose 50%-Water Inj 50 Ml Syringe IV 04/01/25 08:44 Q15MIN PRN BG 50-70 responsive npo pt Dextrose 50 ml 03/02/25 08:45 Dextrose 50%-Water Inj 50 Ml Syringe IV 04/01/25 08:44 Q15MIN PRN BG <50 OR BG <70 & pt unresponsive Docusate Sodium 100 mg 03/01/25 16:26 Docusate Sod 100 Mg Capsule PO 03/31/25 16:25 QDAY PRN CONSTIPATION Protocol Enoxaparin Sodium 40 mg 03/02/25 09:00 03/02/25 08:50 Enoxaparin Sod Inj 40 Mg/0.4 Ml Syringe SC 03/16/25 08:59 40 mg QDAY MATEO Administration Glucagon 1 mg 03/02/25 08:45 Glucagon Inj 1 Mg Vial IM Q15MIN PRN BG <70, and no IV access Azithromycin 500 mg/ Sodium 250 mls @ 250 mls/hr 03/02/25 14:00 03/02/25 13:56 Chloride IV 03/09/25 13:59 250 mls/hr QDAY@1400 MATEO Administration Ceftriaxone Sodium/Dextrose 1 gm in 50 mls @ 100 mls/hr 03/02/25 09:00 03/02/25 08:50 Rocephin/D5w 1gm Iv Premix IV 03/09/25 08:59 100 mls/hr QDAY MATEO Administration Insulin Human Lispro 0 unit 03/02/25 11:30 03/02/25 11:36 Insulin Lispro (Admelog) 1 Unit/0.01 Ml Unit SC 04/01/25 11:29 Not Given ACHS MATEO Protocol Ondansetron HCl 4 mg 03/01/25 16:26 Ondansetron Inj 2 Mg/Ml Inj 2 Ml IV 03/31/25 16:25 Q6H PRN NAUSEA OR VOMITING Protocol Pantoprazole Sodium 40 mg 03/02/25 09:00 03/02/25 08:50 Pantoprazole 40 Mg Tablet PO 04/01/25 08:59 40 mg QDAY MATEO Administration Promethazine HCl/Dextromethorphan 10 ml 03/01/25 16:47 Promethazine/Dm Syrup 5 Ml Dose PO 03/31/25 16:46 Q4HR PRN COUGH Protocol Sodium Chloride 3 ml 03/01/25 13:10 Sodium Chloride Rt Oriana 0.9% 3 Ml Nebu INH 03/31/25 13:09 PRN PRN SOLN Attending Provider Attestation/Addendum I attest that I was physically present for the evaluation, physical examination, lab and imaging review of the patient with the residents. I discussed the case with the residents and agree with the findings and plans of care as documented above. At bedside, patient appears comfortable but she is on high flow nasal cannula, 25 L, 80% FiO2.? Her respiratory rate is also on higher side, 28 at bedside.? ABG from yesterday showed hypoxia.? Repeat ABG today shows improvement.? Continues to be on IV Rocephin and azithromycin, awaiting culture results.? Imaging findings were concerning for tuberculosis, awaiting QuantiFERON results.? Patient continues to be on isolation. Irwin Owen MD
--- NOTE | 2025-03-02 17:33 | PC.NURSE ---
Patient continues to receive insulin. Patient says she does not take any insulin.
[2025-03-03] VITALS (12 sets, daily range): BP systolic 108–147; BP diastolic 70–97; PULSE 60–98; RESP 18–27; TEMP 36.2–36.7; O2SAT 93–99; BMI 30.5
[2025-03-03 05:59] LABS: Basophils % (Auto) 0 % (0-2.5); Eosinophils % (Auto) 0 % (0-10); Hematocrit 36.1 % (36.0-46.0); Hemoglobin 11.8 g/dL (12.0-16.0); Immature Granulocytes % (Auto) 2 % (0-0); Immature Granulocytes Auto 0.17 Thou/mm3 (0.00-0.00); Lymphocytes # (Auto) 1.2 Thou/mm3 (1.0-4.8); Lymphocytes % (Auto) 14 % (10-50); Mean Corpuscular HGB Conc 32.7 g/dl (31.0-37.0); Mean Corpuscular Hemoglobin 30.2 pg (25.0-35.0); Mean Corpuscular Volume 92 fL (80-100); Monocytes # (Auto) 0.6 Thou/mm3 (0.0-0.8); Monocytes % (Auto) 7 % (0-12); Neutrophils # (Auto) 6.8 Thou/mm3 (1.8-7.7); Neutrophils % (Auto) 77 % (37-80); Nucleated Red Blood Cell % 0 /100 WBC (0); Platelet Count 309 Thou/mm3 (140-440); RDW Standard Deviation 41.9 fL (36.4-46.3); Red Blood Count 3.91 Miln/mm3 (4.00-5.20); White Blood Count 8.9 Thou/mm3 (3.6-11.0)
[2025-03-03 06:40] LABS: Anion Gap 10 (7-16); BUN/Creatinine Ratio 29 Ratio (12-20); Blood Urea Nitrogen 20 mg/dL (9-23); Calcium 9.3 mg/dL (8.3-10.6); Carbon Dioxide 26.5 mMol/L (20.0-31.0); Chloride 106 mMol/L (98-107); Creatinine (Component) 0.7 mg/dL (0.6-1.3); Glucose 132 mg/dL (74-106); Osmolality,Calculated 287 (275-295); Potassium 4.1 mMol/L (3.4-5.1); Sodium 142 mMol/L (136-145); eGFR > 60 See Note
[2025-03-03] MEDS: cefTRIAXone/D5w 1gm IV premix 1 GM/50 ML BAG IV (08:44)
[2025-03-03] MEDS: PANTOPRAZOLE 40 MG TABLET PO (08:44)
[2025-03-03] MEDS: ENOXAPARIN SOD INJ 40 MG/0.4 ML SYRINGE SC (08:44)
--- NOTE | 2025-03-03 11:48 | PC.SS ---
SS follow up note; Patient is currently on High flow and being being ruled out for TB, on IV ABX as well. Plan is for the patient to discharge home when medically cleared.
[2025-03-03 11:54] LABS: Cult AFB Sendout- Sputum* See Sep Rpt
[2025-03-03 12:50] LABS: Cocci Serology, IgM Negative (Negative)
--- NOTE | 2025-03-03 13:48 | ESPR_ITS ---
Subjective Subjective Interval history: sick for 7-8 days at most. hypoxic. if you want to r/o tb, that requires sputums for afb as the qtf can be falsely neg in acute disease but she has only been sick for 8 days, so tb is less likely than other things Exam Vital Signs Temp Pulse Resp BP Pulse Ox O2 Del Method O2 Flow Rate 97.5 F 67 18 116/78 96 High Flow Nasal Cannula 25 03/03/25 08:00 03/03/25 08:00 03/03/25 08:00 03/03/25 08:00 03/03/25 08:00 03/03/25 08:00 03/03/25 08:00 FiO2 60 03/03/25 08:00 Narrative Exam on high flow O2. will check some labs in am tomorrow and saturday and see saturday. main components of ddx are chf and cocci . neg cocci noted but only one. will repeat on saturday Objective - Internal Medicine Labs 03/03/25 05:38 03/03/25 05:38 Labs: Laboratory Results - last 24 hr 03/03/25 05:38 WBC 8.9 RBC 3.91 L Hgb 11.8 L Hct 36.1 MCV 92 MCH 30.2 MCHC 32.7 RDW Std Deviation 41.9 Plt Count 309 Neut % (Auto) 77 Lymph % (Auto) 14 [place] % (Auto) 7 Eos % (Auto) 0 Baso % (Auto) 0 Neut # (Auto) 6.8 Lymph # (Auto) 1.2 [place] # (Auto) 0.6 Eos # (Auto) 0.0 Baso # (Auto) 0.0 Immature Gran # (Auto) 0.17 H Absolute Nucleated RBC 0.00 Immature Gran % 2 H Nucleated RBC % 0 Sodium 142 Potassium 4.1 Chloride 106 Carbon Dioxide 26.5 Anion Gap 10 BUN 20 Creatinine 0.7 Estim Creat Clear Calc 99.0 eGFR > 60 BUN/Creatinine Ratio 29 H Glucose 132 H Calculated Osmolality 287 Calcium 9.3 Coccidioides IgM Ab Negative ABG Interpretation ABG results: 03/01/25 03/02/25 17:22 09:30 ABG pH 7.39 7.47 H ABG pCO2 46 39 ABG pO2 37 L* 122 H D ABG HCO3 28 H 28 H ABG O2 Saturation 68 L 100 H ABG Base Excess 3 4 H Assessment & Plan A&P Narrative atypical pulm process hypoxia dm, a1c <<7 noted. well controlled DDX INCLUDES:chf, covid 19 and some other concerns. ordered some labs for am and saturday am. will f/u saturday am Time Spent With Patient Time: Total time spent is greater than 50% in coordination of care (as documented) at patient's floor/unit and/or counseling patient:
--- NOTE | 2025-03-03 16:34 | ESCONSULT_ITS ---
RE: BIRGIT DODGE : 1970 DATE OF CONSULTATION: 03/03/2025 REFERRING PHYSICIAN: Irwin Owen MD REASON FOR CONSULTATION: Atypical pneumonia versus heart failure. HISTORY OF PRESENT ILLNESS: The patient is a 55-year-old woman. She has been sick for only 8 days, which is not very typical for TB. Pts with TB are usually are sick much longer. She is hypoxic though, which is also not typical for TB. Usually, it is more smoldering. She is diabetic, which makes heart failure part of the differential as well as heart attack. She is 3, para 3 with three C-sections. There are no surgeries. ALLERGIES: NONE KNOWN. IMMUNIZATIONS: Last Tetanus is not known. She has not flu shot every year, had 3 COVID and has had pneumonia vaccines. FAMILY HISTORY: Unremarkable. SOCIAL HISTORY: She lives with a male partner and is a nonsmoker. There is no other findings on review. PHYSICAL EXAMINATION: GENERAL: Pleasant ill-appearing woman who is on oxygen via high flow. HEENT: Benign. HEART: Benign. LUNGS: Benign. ABDOMEN: Benign. ASSESSMENT: Possible missed [place] fever versus other atypical process including heart failure. If her BNP is quite high, I may fade off, but for now with negative cultures, I am going to go ahead and get a procalcitonin tomorrow, a COVID-19 study, and some other tests and follow her up on Saturday. DT: 14:24:35 TT: 15:21:00 Ref: [id number] - TID: [id number] [facility]
--- NOTE | 2025-03-03 16:37 | ESPR_ITS ---
<Statement entered by Lizandro Gilmore MD - 03/04/25 07:45> Senior Resident Attestation: I supervised/discussed management plan with management intern physician Dr. Griffith, and was involved in the care of this patient. I personally saw and examined the patient and discussed the assessment and plan with the entire medicine team, including my attending. I agree with the assessment and plan as documented. Patient continues to be on high flow oxygen. ID is on board, ceftriaxone was changed to cefuroxime. Pending TB workup. Patient's care was discussed with attending physician, Dr. Henderson. Lizandro Gilmore MD PGY-2. Documentation for date of: 03/03/25 Subjective Subjective Interval history: Patient is seen and examined at bedside No acute overnight events. Patient complaining of shortness of breath which is same since the time of admission Patient is on high flow oxygen, 60% FiO2, 25 L/min On auscultation, bilateral diffuse wheeze and crackles heard Dr Barrientos was consulted and he recommended to change antibiotic from ceftriaxone to cefuroxime Repeat cocci came back negative, pending QuantiFERON TB Exam Vital Signs Temp Pulse Resp BP Pulse Ox O2 Del Method O2 Flow Rate 97.7 F 75 20 108/70 96 High Flow Nasal Cannula 25 03/03/25 12:00 03/03/25 13:12 03/03/25 13:12 03/03/25 12:00 03/03/25 13:12 03/03/25 12:00 03/03/25 13:12 FiO2 60 03/03/25 13:12 Narrative Exam General: Awake. On high flow oxygen HEENT: Normocephalic, atraumatic, mucous membranes moist. Heart: Regular rate and rhythm, no murmurs. Lungs: bilateral fine inspiratory crackles and wheeze heard more on the right basilar areas Abdomen: Soft, nondistended, nontender, positive bowel sounds. ?No guarding or rebound tenderness. Neurologic: Alert and oriented x3, no gross neurological deficit, and patient able to move all 4 extremities. Extremities: No edema. Skin: No rash or ecchymoses. Objective Labs 03/04/25 04:48 03/04/25 04:48 Labs: Laboratory Results - last 24 hr 03/03/25 05:38 WBC 8.9 RBC 3.91 L Hgb 11.8 L Hct 36.1 MCV 92 MCH 30.2 MCHC 32.7 RDW Std Deviation 41.9 Plt Count 309 Neut % (Auto) 77 Lymph % (Auto) 14 [place] % (Auto) 7 Eos % (Auto) 0 Baso % (Auto) 0 Neut # (Auto) 6.8 Lymph # (Auto) 1.2 [place] # (Auto) 0.6 Eos # (Auto) 0.0 Baso # (Auto) 0.0 Immature Gran # (Auto) 0.17 H Absolute Nucleated RBC 0.00 Immature Gran % 2 H Nucleated RBC % 0 Sodium 142 Potassium 4.1 Chloride 106 Carbon Dioxide 26.5 Anion Gap 10 BUN 20 Creatinine 0.7 Estim Creat Clear Calc 99.0 eGFR > 60 BUN/Creatinine Ratio 29 H Glucose 132 H Calculated Osmolality 287 Calcium 9.3 Coccidioides IgM Ab Negative ABG Interpretation ABG results: 03/01/25 03/02/25 17:22 09:30 ABG pH 7.39 7.47 H ABG pCO2 46 39 ABG pO2 37 L* 122 H D ABG HCO3 28 H 28 H ABG O2 Saturation 68 L 100 H ABG Base Excess 3 4 H Quality Measures Quality Measures none Assessment & Plan Assessment Current Active Medications: Generic Name Dose Route Start Last Admin Trade Name Freq PRN Reason Stop Dose Admin Acetaminophen 650 mg 03/01/25 16:26 03/01/25 20:00 Acetaminophen 325 Mg Tablet PO 03/31/25 16:25 650 mg Q6H PRN Administration Fever >100.3 Albuterol/Ipratropium 3 ml 03/01/25 18:05 Albuterol/Ipratropium (Duoneb) Rt Oriana 3 Ml Nebu INH 03/31/25 18:59 Q6HRRT PRN sob or wheeze Azithromycin 500 mg 03/04/25 09:00 Azithromycin 250 Mg Tablet PO 03/05/25 12:00 QDAY MATEO Cefuroxime Axetil 500 mg 03/03/25 21:00 Cefuroxime Axetil 250 Mg Tablet PO 03/08/25 12:00 BID MATEO Dextrose 25 ml 03/02/25 08:45 Dextrose 50%-Water Inj 50 Ml Syringe IV 04/01/25 08:44 Q15MIN PRN BG 50-70 responsive npo pt Dextrose 50 ml 03/02/25 08:45 Dextrose 50%-Water Inj 50 Ml Syringe IV 04/01/25 08:44 Q15MIN PRN BG <50 OR BG <70 & pt unresponsive Docusate Sodium 100 mg 03/01/25 16:26 Docusate Sod 100 Mg Capsule PO 03/31/25 16:25 QDAY PRN CONSTIPATION Protocol Enoxaparin Sodium 40 mg 03/02/25 09:00 03/03/25 08:44 Enoxaparin Sod Inj 40 Mg/0.4 Ml Syringe SC 03/16/25 08:59 40 mg QDAY AMTEO Administration Glucagon 1 mg 03/02/25 08:45 Glucagon Inj 1 Mg Vial IM Q15MIN PRN BG <70, and no IV access Insulin Human Lispro 0 unit 03/02/25 11:30 03/03/25 12:06 Insulin Lispro (Admelog) 1 Unit/0.01 Ml Unit SC 04/01/25 11:29 Not Given ACHS MATEO Protocol Ondansetron HCl 4 mg 03/01/25 16:26 Ondansetron Inj 2 Mg/Ml Inj 2 Ml IV 03/31/25 16:25 Q6H PRN NAUSEA OR VOMITING Protocol Promethazine HCl/Dextromethorphan 10 ml 03/01/25 16:47 Promethazine/Dm Syrup 5 Ml Dose PO 03/31/25 16:46 Q4HR PRN COUGH Protocol Sodium Chloride 3 ml 03/01/25 13:10 Sodium Chloride Rt Oriana 0.9% 3 Ml Nebu INH 03/31/25 13:09 PRN PRN SOLN Plan 55-year-old female with significant past medical history of diabetes mellitus on metformin presented to the hospital with chief complaints of fever, shortness of breath and cough since 4 days and admitted for acute hypoxic respiratory failure secondary to bilateral pneumonia, to rule out TB # Acute hypoxic respiratory failure # Bilateral pneumonia # Community-acquired pneumonia, atypical versus to rule out tuberculosis - presented to the hospital with chief complaints of fever, shortness of breath and cough with expectoration since 4 days -[facility] and received antibiotics, amoxicillin and clavulanate - As her symptoms got worsened despite using antibiotics patient presented to the hospital - Vitals at the time of admission showed SpO2 85% with room air, pulse rate 105 bpm - Chest x-ray showed bilateral infiltrates - CTA chest showed bilateral miliary pattern infiltrates and negative for pulmonary emboli - Coccidioides IgM antibodies negative - Influenza, COVID testing negative Plan - Sputum sent for Gram stain and cultures, AFB send out - Blood cultures are sent - TB QuantiFERON test was sent - Airborne and droplet precautions - Started on ceftriaxone and azithromycin [03/01-03/03], ceftriaxone is changed to cefuroxime per Dr Barrientos's recommendations - Nebulizations every 8 hourly -Chest physiotherapy - Oxygen, titration as needed - Incentive spirometry - Promethazine/dexamethasone as needed every 4 hourly # History of diabetes mellitus - Patient is using metformin 500 Mg twice daily at home - HbA1c is ordered, 6.1 - Started on insulin sliding scale Hospital Maintenance: Dispo: Med tele DVT ppx: Lovenox GI ppx: Protonix Diet: Carbohydrate consistent IV lines: Peripheral Code status: Full code Patient plan of care was discussed with the attending physician, Dr. Henderson and senior resident Dr. Deirdre Griffith, PGY1 Attending Provider Attestation/Addendum Susan, Idalia Henderson, , attest that I was physically present for the lewis portions of the service and evaluated the patient with the resident and I reviewed and discussed the case with the resident and agree with the resident's findings and plans of care as documented above Patient seen and evaluated this AM. She remains on HFNC with flow of 25L/min and FIO2 of 60%. Patient reports shortness of breath with even mild exertion. Will order Incentive spirometer. Repeat cocci pending. Patient works in the [employer] and denies any recent sick contacts. She denies history of valley fever in the past. Pending ID recommendations. Patient remains on isolation due to TB rule out. Patient did receive BCG vaccine in the past. However, denies past infection or exposure of TB.
[2025-03-03] MEDS: ALBUTEROL/IPRATROPIUM (Duoneb) RT SOL 3 ML NEBU INH ×2 (17:30→22:06)
[2025-03-03] MEDS: cefuroxime axetiL 250 MG TABLET 500 MG PO (21:49)
[2025-03-03 22:42] LABS: COVID-19 Antigen (In-House) Negative (Negative)
[2025-03-03 22:47] LABS: Cult AFB Sendout- Sputum* See Sep Rpt
[2025-03-04] VITALS (15 sets, daily range): BP systolic 102–116; BP diastolic 67–77; PULSE 62–86; RESP 17–26; TEMP 35.9–36.6; O2SAT 91–97
[2025-03-04] MEDS: PROMETHAZINE/DM SYRUP 5 ML DOSE 10 ML PO (06:11)
[2025-03-04 06:14] LABS: Basophils % (Auto) 0 % (0-2.5); Eosinophils # (Auto) 0.2 Thou/mm3 (0.0-0.5); Eosinophils % (Auto) 2 % (0-10); Hematocrit 37.1 % (36.0-46.0); Hemoglobin 12.2 g/dL (12.0-16.0); Immature Granulocytes % (Auto) 5 % (0-0); Immature Granulocytes Auto 0.36 Thou/mm3 (0.00-0.00); Lymphocytes # (Auto) 1.6 Thou/mm3 (1.0-4.8); Lymphocytes % (Auto) 22 % (10-50); Mean Corpuscular HGB Conc 32.9 g/dl (31.0-37.0); Mean Corpuscular Hemoglobin 30.4 pg (25.0-35.0); Mean Corpuscular Volume 93 fL (80-100); Monocytes # (Auto) 0.6 Thou/mm3 (0.0-0.8); Monocytes % (Auto) 8 % (0-12); Neutrophils # (Auto) 4.6 Thou/mm3 (1.8-7.7); Neutrophils % (Auto) 62 % (37-80); Nucleated Red Blood Cell % 0 /100 WBC (0); Platelet Count 345 Thou/mm3 (140-440); RDW Standard Deviation 42.5 fL (36.4-46.3); Red Blood Count 4.01 Miln/mm3 (4.00-5.20); White Blood Count 7.4 Thou/mm3 (3.6-11.0)
[2025-03-04 06:36] LABS: B-Type Natriuretic Peptide < 20 pg/mL (0-100)
[2025-03-04 06:47] LABS: Anion Gap 10 (7-16); BUN/Creatinine Ratio 23 Ratio (12-20); Blood Urea Nitrogen 16 mg/dL (9-23); Calcium 9.1 mg/dL (8.3-10.6); Carbon Dioxide 26.8 mMol/L (20.0-31.0); Chloride 105 mMol/L (98-107); Creatinine (Component) 0.7 mg/dL (0.6-1.3); Glucose 112 mg/dL (74-106); Osmolality,Calculated 285 (275-295); Potassium 3.5 mMol/L (3.4-5.1); Procalcitonin 0.11 ng/ml (0.0-0.49); Sodium 142 mMol/L (136-145); eGFR > 60 See Note
[2025-03-04 07:17] LABS: Hepatitis C Antibody Non Reactive (Non React)
[2025-03-04 07:29] LABS: Respiratory Syncytial Virus Ag Negative (Negative)
[2025-03-04] MEDS: ALBUTEROL/IPRATROPIUM (Duoneb) RT SOL 3 ML NEBU INH ×3 (07:57→22:09)
[2025-03-04] MEDS: AZITHROMYCIN 250 MG TABLET 500 MG PO (08:31)
[2025-03-04] MEDS: cefuroxime axetiL 250 MG TABLET 500 MG PO ×2 (08:31→20:00)
[2025-03-04] MEDS: ENOXAPARIN SOD INJ 40 MG/0.4 ML SYRINGE SC (08:32)
[2025-03-04 09:58] LABS: HIV (1&2) Antibody Rapid Non-Reactive
--- NOTE | 2025-03-04 14:32 | ESPR_ITS ---
<Statement entered by Lizandro Gilmore MD - 03/05/25 07:50> Senior Resident Attestation: I supervised/discussed management plan with chemistry intern physician Dr. Griffith, and was involved in the care of this patient. I personally saw and examined the patient and discussed the assessment and plan with the entire medicine team, including my attending. I agree with the assessment and plan as documented. QuantiFERON returned inconclusive, AFB is pending. Patient remains on high flow oxygen. ID is on board. Patient's care was discussed with attending physician, Dr. Henderson. Lizandro Gilmore MD PGY-2. Documentation for date of: 03/04/25 Subjective Subjective Interval history: Patient is seen and examined at bedside No acute overnight events. Patient still complaining of cough with expectoration Still on high flow oxygen, 55% FiO2, 25 L/min. On physical examination, bilateral diffuse inspiratory fine crackles heard Tested negative for HIV, hepatitis C Ordered physical therapy Exam Vital Signs Temp Pulse Resp BP Pulse Ox O2 Del Method O2 Flow Rate 97.6 F 83 25 H 108/77 92 L High Flow Nasal Cannula 25 03/04/25 12:00 03/04/25 12:00 03/04/25 12:00 03/04/25 12:00 03/04/25 12:00 03/04/25 12:00 03/04/25 12:00 FiO2 55 03/04/25 12:00 Narrative Exam General: Awake. On high flow oxygen HEENT: Normocephalic, atraumatic, mucous membranes moist. Heart: Regular rate and rhythm, no murmurs. Lungs: bilateral fine inspiratory crackles heard more on the left lung Abdomen: Soft, nondistended, nontender, positive bowel sounds. ?No guarding or rebound tenderness. Neurologic: Alert and oriented x3, no gross neurological deficit, and patient able to move all 4 extremities. Extremities: No edema. Skin: No rash or ecchymoses. Objective Labs 03/05/25 04:58 03/05/25 04:58 Labs: Laboratory Results - last 24 hr 03/02/25 03/03/25 03/04/25 04:57 22:01 04:48 WBC 7.4 RBC 4.01 Hgb 12.2 Hct 37.1 MCV 93 MCH 30.4 MCHC 32.9 RDW Std Deviation 42.5 Plt Count 345 D Neut % (Auto) 62 Lymph % (Auto) 22 [place] % (Auto) 8 Eos % (Auto) 2 Baso % (Auto) 0 Neut # (Auto) 4.6 Lymph # (Auto) 1.6 [place] # (Auto) 0.6 Eos # (Auto) 0.2 Baso # (Auto) 0.0 Immature Gran # (Auto) 0.36 H Absolute Nucleated RBC 0.00 Immature Gran % 5 H Nucleated RBC % 0 Sodium 142 Potassium 3.5 D Chloride 105 Carbon Dioxide 26.8 Anion Gap 10 BUN 16 Creatinine 0.7 Estim Creat Clear Calc 97.0 eGFR > 60 BUN/Creatinine Ratio 23 H Glucose 112 H Calculated Osmolality 285 Calcium 9.1 B-Natriuretic Peptide < 20 Procalcitonin 0.11 Hepatitis C Antibody Non Reactive HIV 1&2 Antibody Rapid Non-Reactive RSV Rapid SARS-CoV-2 Ag (Rapid) Negative TB Test (QFT) See Jul03/04/25 06:06 WBC RBC Hgb Hct MCV MCH MCHC RDW Std Deviation Plt Count Neut % (Auto) Lymph % (Auto) [place] % (Auto) Eos % (Auto) Baso % (Auto) Neut # (Auto) Lymph # (Auto) [place] # (Auto) Eos # (Auto) Baso # (Auto) Immature Gran # (Auto) Absolute Nucleated RBC Immature Gran % Nucleated RBC % Sodium Potassium Chloride Carbon Dioxide Anion Gap BUN Creatinine Estim Creat Clear Calc eGFR BUN/Creatinine Ratio Glucose Calculated Osmolality Calcium B-Natriuretic Peptide Procalcitonin Hepatitis C Antibody HIV 1&2 Antibody Rapid RSV Rapid Negative SARS-CoV-2 Ag (Rapid) TB Test (QFT) ABG Interpretation ABG results: 03/01/25 03/02/25 17:22 09:30 ABG pH 7.39 7.47 H ABG pCO2 46 39 ABG pO2 37 L* 122 H D ABG HCO3 28 H 28 H ABG O2 Saturation 68 L 100 H ABG Base Excess 3 4 H Quality Measures Quality Measures none Assessment & Plan Assessment Current Active Medications: Generic Name Dose Route Start Last Admin Trade Name Freq PRN Reason Stop Dose Admin Acetaminophen 650 mg 03/01/25 16:26 03/01/25 20:00 Acetaminophen 325 Mg Tablet PO 03/31/25 16:25 650 mg Q6H PRN Administration Fever >100.3 Albuterol/Ipratropium 3 ml 04/16/25 16:45 03/04/25 07:57 Albuterol/Ipratropium (Duoneb) Rt Oriana 3 Ml Nebu INH 04/02/25 16:44 3 ml Q8HRRT MATEO Administration Azithromycin 500 mg 03/04/25 09:00 03/04/25 08:31 Azithromycin 250 Mg Tablet PO 03/05/25 12:00 500 mg QDAY MATEO Administration Cefuroxime Axetil 500 mg 03/03/25 21:00 03/04/25 08:31 Cefuroxime Axetil 250 Mg Tablet PO 03/08/25 12:00 500 mg BID MATEO Administration Dextrose 25 ml 03/02/25 08:45 Dextrose 50%-Water Inj 50 Ml Syringe IV 04/01/25 08:44 Q15MIN PRN BG 50-70 responsive npo pt Dextrose 50 ml 03/02/25 08:45 Dextrose 50%-Water Inj 50 Ml Syringe IV 04/01/25 08:44 Q15MIN PRN BG <50 OR BG <70 & pt unresponsive Docusate Sodium 100 mg 03/01/25 16:26 Docusate Sod 100 Mg Capsule PO 03/31/25 16:25 QDAY PRN CONSTIPATION Protocol Enoxaparin Sodium 40 mg 03/02/25 09:00 03/04/25 08:32 Enoxaparin Sod Inj 40 Mg/0.4 Ml Syringe SC 03/16/25 08:59 40 mg QDAY MATEO Administration Glucagon 1 mg 03/02/25 08:45 Glucagon Inj 1 Mg Vial IM Q15MIN PRN BG <70, and no IV access Insulin Human Lispro 0 unit 03/02/25 11:30 03/04/25 12:00 Insulin Lispro (Admelog) 1 Unit/0.01 Ml Unit SC 04/01/25 11:29 Not Given ACHS MATEO Protocol Ondansetron HCl 4 mg 03/01/25 16:26 Ondansetron Inj 2 Mg/Ml Inj 2 Ml IV 03/31/25 16:25 Q6H PRN NAUSEA OR VOMITING Protocol Promethazine HCl/Dextromethorphan 10 ml 03/01/25 16:47 03/04/25 06:11 Promethazine/Dm Syrup 5 Ml Dose PO 03/31/25 16:46 10 ml Q4HR PRN Administration COUGH Protocol Sodium Chloride 3 ml 03/01/25 13:10 Sodium Chloride Rt Oriana 0.9% 3 Ml Nebu INH 03/31/25 13:09 PRN PRN SOLN Plan 55-year-old female with significant past medical history of diabetes mellitus on metformin presented to the hospital with chief complaints of fever, shortness of breath and cough since 4 days and admitted for acute hypoxic respiratory failure secondary to bilateral pneumonia, to rule out TB # Acute hypoxic respiratory failure # Bilateral pneumonia # Community-acquired pneumonia, atypical versus to rule out tuberculosis - presented to the hospital with chief complaints of fever, shortness of breath and cough with expectoration since 4 days -Patient saw primary care provider in [facility] and received antibiotics, amoxicillin and clavulanate - As her symptoms got worsened despite using antibiotics patient presented to the hospital - Vitals at the time of admission showed SpO2 85% with room air, pulse rate 105 bpm - Chest x-ray showed bilateral infiltrates - CTA chest showed bilateral miliary pattern infiltrates and negative for pulmonary emboli - Coccidioides IgM antibodies negative - Influenza, COVID testing negative Plan - Sputum sent for Gram stain and cultures, AFB send out - Blood cultures are sent - TB QuantiFERON test was sent - Airborne and droplet precautions - Started on ceftriaxone and azithromycin [03/01-03/03], ceftriaxone is changed to cefuroxime per Dr Barrientos's recommendations - Nebulizations every 8 hourly - Chest physiotherapy - Oxygen, titration as needed - Incentive spirometry - Promethazine/dexamethasone as needed every 4 hourly # History of diabetes mellitus - Patient is using metformin 500 Mg twice daily at home - HbA1c is ordered, 6.1 - Started on insulin sliding scale Hospital Maintenance: Dispo: Med tele DVT ppx: Lovenox GI ppx: Protonix Diet: Carbohydrate consistent IV lines: Peripheral Code status: Full code Patient plan of care was discussed with the attending physician, Dr. Henderson and senior resident Dr. Deirdre Griffith, PGY1 Attending Provider Attestation/Addendum Susan, Idalia Henderson, , attest that I was physically present for the lewis portions of the service and evaluated the patient with the resident and I reviewed and discussed the case with the resident and agree with the resident's findings and plans of care as documented above Patient seen and evaluated this AM. She remains on HFNC with flow of 25L/min and FIO2 of 55%. She continues to have BERRIOS. Will order PT. Pending AFBs and quantiferon. Continue to titrate O2 as tolerated and continue abx. Encouraged IS
[2025-03-05] VITALS (13 sets, daily range): BP systolic 100–124; BP diastolic 67–77; PULSE 66–90; RESP 16–27; TEMP 35.9–36.6; O2SAT 89–97
[2025-03-05] MEDS: PROMETHAZINE/DM SYRUP 5 ML DOSE 10 ML PO (04:41)
[2025-03-05 05:41] LABS: Basophils % (Auto) 1 % (0-2.5); Eosinophils # (Auto) 0.2 Thou/mm3 (0.0-0.5); Eosinophils % (Auto) 3 % (0-10); Hematocrit 38.8 % (36.0-46.0); Hemoglobin 12.9 g/dL (12.0-16.0); Immature Granulocytes % (Auto) 6 % (0-0); Immature Granulocytes Auto 0.44 Thou/mm3 (0.00-0.00); Lymphocytes # (Auto) 1.6 Thou/mm3 (1.0-4.8); Lymphocytes % (Auto) 22 % (10-50); Mean Corpuscular HGB Conc 33.2 g/dl (31.0-37.0); Mean Corpuscular Volume 90 fL (80-100); Monocytes # (Auto) 0.6 Thou/mm3 (0.0-0.8); Monocytes % (Auto) 8 % (0-12); Neutrophils # (Auto) 4.3 Thou/mm3 (1.8-7.7); Neutrophils % (Auto) 60 % (37-80); Nucleated Red Blood Cell % 0 /100 WBC (0); Platelet Count 405 Thou/mm3 (140-440); RDW Standard Deviation 39.9 fL (36.4-46.3); White Blood Count 7.2 Thou/mm3 (3.6-11.0)
[2025-03-05 06:10] LABS: Alanine Aminotransferase 15 U/L (10-49); Albumin, Serum 4.1 gm/dL (3.5-5.0); Albumin/Globulin Ratio 1.5 (1.2-2.2); Alkaline Phosphatase 100 U/L (46-116); Anion Gap 9 (7-16); Aspartate Amino Transferase 17 U/L (0-34); BUN/Creatinine Ratio 19 Ratio (12-20); Bilirubin,Total 0.5 mg/dL (0.3-1.2); Blood Urea Nitrogen 13 mg/dL (9-23); Calcium 9.2 mg/dL (8.3-10.6); Calcium (Corrected) 9.2 mg/dL (8.5-10.1); Carbon Dioxide 25.7 mMol/L (20.0-31.0); Chloride 105 mMol/L (98-107); Creatinine (Component) 0.7 mg/dL (0.6-1.3); Globulin 2.7 gm/dL (2.3-3.5); Glucose 130 mg/dL (74-106); Osmolality,Calculated 281 (275-295); Potassium 3.7 mMol/L (3.4-5.1); Sodium 140 mMol/L (136-145); Total Protein 6.8 gm/dL (5.7-8.2); eGFR > 60 See Note
[2025-03-05] MEDS: ALBUTEROL/IPRATROPIUM (Duoneb) RT SOL 3 ML NEBU INH ×2 (07:04→22:22)
--- NOTE | 2025-03-05 08:03 | ECHO_ITS ---
Transthoracic Echo Report Ht (in): 64 Wt (lb): 183 Exam Location: Echo Lab Status: Inpatient Director Of Strategic Sourcing: Yelena Corado Indications: Procedure Performed: BP: 124 / 77 HR: 77 Technical Quality: Technically difficult study MEASUREMENTS (Male / Female) Normal Values 2D ECHO LV Diastolic Diameter PLAX 3.8 cm 4.2 - 5.9 / 3.9 - 5.3 cm LV Systolic Diameter PLAX 2.5 cm IVS Diastolic Thickness 0.8 cm 0.6 - 1.0 / 0.6 - 0.9 cm LVPW Diastolic Thickness 0.9 cm 0.6 - 1.0 / 0.6 - 0.9 cm LV Relative Wall Thickness 0.5 LVOT Diameter 2.0 cm Aortic Root Diameter 2.8 cm LA Systolic Diameter LX 2.5 cm 3.0 - 4.0 / 2.7 - 3.8 cm LA Volume Index 12.6 cm?/m? 16 - 28 cm?/m? DOPPLER AV Peak Velocity 136.0 cm/s AV Peak Gradient 7.4 mmHg AV Mean Gradient 3.0 mmHg AV Velocity Time Integral 27.7 cm LVOT Peak Velocity 88.7 cm/s LVOT Peak Gradient 3.1 mmHg LVOT Velocity Time Integral 19.3 cm LVOT Cardiac Index 2375.1 cm?/min?m? AV Area Cont Eq vti 2.2 cm? AV Area Cont Eq pk 2.0 cm? MV Area PHT 3.2 cm? Mitral E Point Velocity 51.9 cm/s Mitral A Point Velocity 62.6 cm/s Mitral E to A Ratio 0.8 LV E' Lateral Velocity 10.2 cm/s Mitral E to LV E' Lateral Ratio 5.1 LV E' Septal Velocity 10.4 cm/s Mitral E to LV E' Septal Ratio 5.0 TR Peak Velocity 257.0 cm/s TR Peak Gradient 26.4 mmHg PV Peak Velocity 67.9 cm/s PV Peak Gradient 1.8 mmHg FINDINGS Left Ventricle Normal left ventricular size, wall thickness, systolic function with no obvious regional wall motion abnormalities. Normal left ventricular diastolic filling pattern for age. The ejection fraction is visually estimated at 55-60%. There is grade I diastolic dysfunction. Right Ventricle The right ventricle is normal in size and systolic function. Left Atrium The left atrium is normal by two-dimensional, color flow and Doppler imaging with no structural abnormalities, no thrombus formation present. Right Atrium The right atrium is normal by two-dimensional imaging, color flow and Doppler imaging with no structural abnormalities, no thrombus formation present. Atrial Septum The interatrial septum appears normal with no evidence of a shunt. Aorta The aorta is normal by two-dimensional, color flow and Doppler interrogation. Mitral Valve The mitral valve is normal by two-dimensional, color flow and Doppler interrogation. There is no significant mitral valve regurgitation, stenosis or prolapse. Aortic Valve The aortic valve is trileaflet and normal by two-dimensional, color flow and Doppler interrogation. There is no significant aortic valve regurgitation. Tricuspid Valve There is mild tricuspid valve regurgitation. Pulmonic Valve The pulmonic valve is not well visualized. There is no significant pulmonic valve regurgitation. Vessels The pulmonary artery appears normal. The inferior vena cava pulmonary and hepatic veins appear normal. Pericardium The pericardium is normal by two-dimensional imaging. There is no significant pericardial effusion. CONCLUSIONS Indication: SOB Normal LV size and function. Estimated EF 55-60%. Grade I diastolic dysfunction. RV is normal in size and systolic function. Mild TR. Abel Rg (Electronically Signed) Final Date: 06 March 2025 10:11
--- NOTE | 2025-03-05 09:15 | PD.IDPROG ---
Subjective Subjective Interval history: still on high flow O2. afb pending. one was neg. the qtf being equivocal does not mean almost positive but means that test did not run correctly, so still doubt tb Exam Vital Signs Temp Pulse Resp BP Pulse Ox O2 Del Method O2 Flow Rate 97.7 F 87 26 H 105/68 89 L High Flow Nasal Cannula 25 03/05/25 07:34 03/05/25 07:34 03/05/25 07:34 03/05/25 07:34 03/05/25 07:34 03/05/25 07:34 03/05/25 07:34 FiO2 55 03/05/25 07:34 Narrative Exam seen. looks like team is considering steroids. no objection but should get tests before hand if possible. Objective - Internal Medicine Labs 03/05/25 04:58 03/05/25 04:58 Labs: Laboratory Results - last 24 hr 03/01/25 03/04/25 03/05/25 18:20 04:48 04:58 WBC 7.2 RBC 4.30 Hgb 12.9 Hct 38.8 MCV 90 MCH 30.0 MCHC 33.2 RDW Std Deviation 39.9 Plt Count 405 D Neut % (Auto) 60 Lymph % (Auto) 22 [place] % (Auto) 8 Eos % (Auto) 3 Baso % (Auto) 1 Neut # (Auto) 4.3 Lymph # (Auto) 1.6 [place] # (Auto) 0.6 Eos # (Auto) 0.2 Baso # (Auto) 0.0 Immature Gran # (Auto) 0.44 H Absolute Nucleated RBC 0.00 Immature Gran % 6 H Nucleated RBC % 0 Sodium 140 Potassium 3.7 Chloride 105 Carbon Dioxide 25.7 Anion Gap 9 BUN 13 Creatinine 0.7 Estim Creat Clear Calc 97.0 eGFR > 60 BUN/Creatinine Ratio 19 Glucose 130 H Calculated Osmolality 281 Calcium 9.2 Corrected Calcium 9.2 Total Bilirubin 0.5 AST 17 ALT 15 Alkaline Phosphatase 100 Total Protein 6.8 Albumin 4.1 Globulin 2.7 Albumin/Globulin Ratio 1.5 HIV 1&2 Antibody Rapid Non-Reactive Mycobacterial Culture See Sep Rpt ABG Interpretation ABG results: 03/01/25 03/02/25 17:22 09:30 ABG pH 7.39 7.47 H ABG pCO2 46 39 ABG pO2 37 L* 122 H D ABG HCO3 28 H 28 H ABG O2 Saturation 68 L 100 H ABG Base Excess 3 4 H Assessment & Plan A&P Narrative atypical pulm process. one afb neg so far hypoxia dm, a1c <<7 noted. well controlled a1c 6.1 on 03/02 bnp ok. covid neg. rsv neg, procal neg. procal is insensitive to atypical pathogens, fungi,and viruses. you can get a viral resp panel at the [facility] lab. that may be prudent before an invasive procedure performed.or steroids given. if you are dying to start something note that flucon is ok and po is same as iv. Time Spent With Patient Time: Total time spent is greater than 50% in coordination of care (as documented) at patient's floor/unit and/or counseling patient:
[2025-03-05] MEDS: AZITHROMYCIN 250 MG TABLET 500 MG PO (09:17)
[2025-03-05] MEDS: ENOXAPARIN SOD INJ 40 MG/0.4 ML SYRINGE SC (09:18)
[2025-03-05] MEDS: cefuroxime axetiL 250 MG TABLET 500 MG PO ×2 (09:18→20:16)
[2025-03-05 11:26] LABS: Quantiferon-TB* See Sep Rpt
--- NOTE | 2025-03-05 11:51 | PC.SS ---
SS follow up note; Patient is currently on high flow. AFB still pending at the time.
[2025-03-05 12:50] LABS: Cocci Serology, IgM Positive (Negative)
[2025-03-05 12:51] LABS: Cocid Sro, CF/ID (UCD) NO CHG* See Sep Rpt
--- NOTE | 2025-03-05 13:21 | ESPR_ITS ---
<Statement entered by Lizandro Gilmore MD - 03/06/25 12:35> Senior Resident Attestation: I supervised/discussed management plan with internet sales associate physician Dr. Griffith, and was involved in the care of this patient. I personally saw and examined the patient and discussed the assessment and plan with the entire medicine team, including my attending. I agree with the assessment and plan as documented. Patient tested positive for cocci and was started on fluconazole. She remains on high flow oxygen, we will continue to monitor. ID is following. Patient's care was discussed with attending physician, Dr. Henderson. Lizandro Gilmore MD PGY-2. Documentation for date of: 03/05/25 Subjective Subjective Interval history: Patient is seen and examined at bedside No acute overnight events. Still complaining of shortness of breath and cough Patient is still on high flow oxygen saturating at 90 to 91% on 55% FiO2, 25 L/min Patient tested positive for IgM cocci on 03/05/2025, started on fluconazole [address] Barrientos is following the patient and will appreciate his recommendations Exam Vital Signs Temp Pulse Resp BP Pulse Ox O2 Del Method O2 Flow Rate 96.6 F L 77 20 124/77 90 L High Flow Nasal Cannula 35 03/05/25 12:00 03/05/25 12:00 03/05/25 12:00 03/05/25 12:00 03/05/25 12:00 03/05/25 12:00 03/05/25 12:00 FiO2 55 03/05/25 12:00 Narrative Exam General: Awake. On high flow oxygen HEENT: Normocephalic, atraumatic, mucous membranes moist. Heart: Regular rate and rhythm, no murmurs. Lungs: bilateral fine inspiratory crackles heard more on the left lung Abdomen: Soft, nondistended, nontender, positive bowel sounds. ?No guarding or rebound tenderness. Neurologic: Alert and oriented x3, no gross neurological deficit, and patient able to move all 4 extremities. Extremities: No edema. Skin: No rash or ecchymoses. Objective Labs 03/06/25 04:28 03/06/25 04:28 Labs: Laboratory Results - last 24 hr 03/01/25 03/05/25 18:20 04:58 WBC 7.2 RBC 4.30 Hgb 12.9 Hct 38.8 MCV 90 MCH 30.0 MCHC 33.2 RDW Std Deviation 39.9 Plt Count 405 D Neut % (Auto) 60 Lymph % (Auto) 22 [place] % (Auto) 8 Eos % (Auto) 3 Baso % (Auto) 1 Neut # (Auto) 4.3 Lymph # (Auto) 1.6 [place] # (Auto) 0.6 Eos # (Auto) 0.2 Baso # (Auto) 0.0 Immature Gran # (Auto) 0.44 H Absolute Nucleated RBC 0.00 Immature Gran % 6 H Nucleated RBC % 0 Sodium 140 Potassium 3.7 Chloride 105 Carbon Dioxide 25.7 Anion Gap 9 BUN 13 Creatinine 0.7 Estim Creat Clear Calc 97.0 eGFR > 60 BUN/Creatinine Ratio 19 Glucose 130 H Calculated Osmolality 281 Calcium 9.2 Corrected Calcium 9.2 Total Bilirubin 0.5 AST 17 ALT 15 Alkaline Phosphatase 100 Total Protein 6.8 Albumin 4.1 Globulin 2.7 Albumin/Globulin Ratio 1.5 Coccidioides IgM Ab Positive A Mycobacterial Culture See Sep Rpt ABG Interpretation ABG results: 03/01/25 03/02/25 17:22 09:30 ABG pH 7.39 7.47 H ABG pCO2 46 39 ABG pO2 37 L* 122 H D ABG HCO3 28 H 28 H ABG O2 Saturation 68 L 100 H ABG Base Excess 3 4 H Quality Measures Quality Measures none Assessment & Plan Assessment Current Active Medications: Generic Name Dose Route Start Last Admin Trade Name Freq PRN Reason Stop Dose Admin Acetaminophen 650 mg 03/01/25 16:26 03/01/25 20:00 Acetaminophen 325 Mg Tablet PO 03/31/25 16:25 650 mg Q6H PRN Administration Fever >100.3 Albuterol/Ipratropium 3 ml 03/03/25 16:45 03/05/25 07:04 Albuterol/Ipratropium (Duoneb) Rt Oriana 3 Ml Nebu INH 04/02/25 16:44 3 ml Q8HRRT MATEO Administration Cefuroxime Axetil 500 mg 03/03/25 21:00 03/05/25 09:18 Cefuroxime Axetil 250 Mg Tablet PO 03/08/25 12:00 500 mg BID MATEO Administration Dextrose 25 ml 03/02/25 08:45 Dextrose 50%-Water Inj 50 Ml Syringe IV 04/01/25 08:44 Q15MIN PRN BG 50-70 responsive npo pt Dextrose 50 ml 03/02/25 08:45 Dextrose 50%-Water Inj 50 Ml Syringe IV 04/01/25 08:44 Q15MIN PRN BG <50 OR BG <70 & pt unresponsive Docusate Sodium 100 mg 03/01/25 16:26 Docusate Sod 100 Mg Capsule PO 03/31/25 16:25 QDAY PRN CONSTIPATION Protocol Enoxaparin Sodium 40 mg 03/02/25 09:00 03/05/25 09:18 Enoxaparin Sod Inj 40 Mg/0.4 Ml Syringe SC 03/16/25 08:59 40 mg QDAY MATEO Administration Glucagon 1 mg 03/02/25 08:45 Glucagon Inj 1 Mg Vial IM Q15MIN PRN BG <70, and no IV access Insulin Human Lispro 0 unit 03/02/25 11:30 03/05/25 12:05 Insulin Lispro (Admelog) 1 Unit/0.01 Ml Unit SC 04/01/25 11:29 Not Given ACHS MATEO Protocol Ondansetron HCl 4 mg 03/01/25 16:26 Ondansetron Inj 2 Mg/Ml Inj 2 Ml IV 03/31/25 16:25 Q6H PRN NAUSEA OR VOMITING Protocol Promethazine HCl/Dextromethorphan 10 ml 03/01/25 16:47 03/05/25 04:41 Promethazine/Dm Syrup 5 Ml Dose PO 03/31/25 16:46 10 ml Q4HR PRN Administration COUGH Protocol Sodium Chloride 3 ml 03/01/25 13:10 Sodium Chloride Rt Oriana 0.9% 3 Ml Nebu INH 03/31/25 13:09 PRN PRN SOLN Plan 55-year-old female with significant past medical history of diabetes mellitus on metformin presented to the hospital with chief complaints of fever, shortness of breath and cough since 4 days and admitted for acute hypoxic respiratory failure secondary to bilateral pneumonia, to rule out TB # Acute hypoxic respiratory failure # 2/2 Bilateral pneumonia due to coccidoides - presented to the hospital with chief complaints of fever, shortness of breath and cough with expectoration since 4 days - Patient saw primary care provider in [facility] and received antibiotics, amoxicillin and clavulanate - As her symptoms got worsened despite using antibiotics patient presented to the hospital - Vitals at the time of admission showed SpO2 85% with room air, pulse rate 105 bpm - Chest x-ray showed bilateral infiltrates - CTA chest showed bilateral miliary pattern infiltrates and negative for pulmonary emboli - Coccidioides IgM antibodies negative twice on 03/01, 03/03 and positive on 03/05/2025, reflex sent to [facility] for confirmation - Influenza, COVID testing negative - TB QuantiFERON test was sent, came back indeterminate - Blood cultures came back negative - Sputum sent for Gram stain and cultures showed GPC, GNR, YEAST, epithelial cells - likely contaminant Plan - AFB send out 1 sample came back negative, pending other 2 samples are pending - Airborne and droplet precautions - Started on ceftriaxone and azithromycin [03/01-03/03], ceftriaxone is changed to cefuroxime(03/03 - present) as per Dr Barrientos's recommendations - Nebulizations every 8 hourly - Chest physiotherapy - Oxygen, titration as needed - Incentive spirometry - Promethazine/dexamethasone as needed every 4 hourly # History of diabetes mellitus - Patient is using metformin 500 Mg twice daily at home - HbA1c is ordered, 6.1 - Started on insulin sliding scale Hospital Maintenance: Dispo: Med tele DVT ppx: Lovenox GI ppx: Protonix Diet: Carbohydrate consistent IV lines: Peripheral Code status: Full code Patient plan of care was discussed with the attending physician, Dr. Henderson and senior resident Dr. Deirdre Griffith, PGY1 Attending Provider Attestation/Addendum Idalia Davis, , attest that I was physically present for the lewis portions of the service and evaluated the patient with the resident and I reviewed and discussed the case with the resident and agree with the resident's findings and plans of care as documented above Patient seen and evaluated this AM. She remains on HFNC with flow of 35L/min with FIO2 of 55%. Cocci IgM noted to be positive. Will start fluconazole. Quantiferon is to be repeated as per ID recommendations due to indeterminate results. Respiratory viral panel also sent. Pending results. Continue to titrate O2 as tolerated. Patient has otherwise been afebrile.
[2025-03-05] MEDS: FLUCONAZOLE 100 MG TABLET 400 MG PO (15:22)
[2025-03-06] VITALS (14 sets, daily range): BP systolic 99–114; BP diastolic 69–75; PULSE 70–109; RESP 17–28; TEMP 35.9–36.8; O2SAT 91–95
[2025-03-06 05:44] LABS: Basophils # (Auto) 0.1 Thou/mm3 (0.0-0.2); Basophils % (Auto) 1 % (0-2.5); Eosinophils # (Auto) 0.2 Thou/mm3 (0.0-0.5); Eosinophils % (Auto) 3 % (0-10); Hematocrit 38.3 % (36.0-46.0); Hemoglobin 12.8 g/dL (12.0-16.0); Immature Granulocytes % (Auto) 6 % (0-0); Lymphocytes # (Auto) 1.8 Thou/mm3 (1.0-4.8); Lymphocytes % (Auto) 20 % (10-50); Mean Corpuscular HGB Conc 33.4 g/dl (31.0-37.0); Mean Corpuscular Hemoglobin 29.8 pg (25.0-35.0); Mean Corpuscular Volume 89 fL (80-100); Monocytes # (Auto) 0.6 Thou/mm3 (0.0-0.8); Monocytes % (Auto) 7 % (0-12); Neutrophils # (Auto) 5.7 Thou/mm3 (1.8-7.7); Neutrophils % (Auto) 64 % (37-80); Nucleated Red Blood Cell % 0 /100 WBC (0); Platelet Count 382 Thou/mm3 (140-440); RDW Standard Deviation 39.5 fL (36.4-46.3); White Blood Count 8.9 Thou/mm3 (3.6-11.0)
[2025-03-06 06:03] LABS: Alanine Aminotransferase 25 U/L (10-49); Albumin, Serum 4.2 gm/dL (3.5-5.0); Albumin/Globulin Ratio 1.6 (1.2-2.2); Alkaline Phosphatase 102 U/L (46-116); Anion Gap 8 (7-16); Aspartate Amino Transferase 24 U/L (0-34); BUN/Creatinine Ratio 16 Ratio (12-20); Bilirubin,Total 0.5 mg/dL (0.3-1.2); Blood Urea Nitrogen 13 mg/dL (9-23); Calcium 9.5 mg/dL (8.3-10.6); Calcium (Corrected) 9.5 mg/dL (8.5-10.1); Carbon Dioxide 26.2 mMol/L (20.0-31.0); Chloride 106 mMol/L (98-107); Creatinine (Component) 0.8 mg/dL (0.6-1.3); Estimated Creatinine Clearance 84.8 mL/min (>60); Globulin 2.7 gm/dL (2.3-3.5); Glucose 123 mg/dL (74-106); Osmolality,Calculated 280 (275-295); Potassium 3.8 mMol/L (3.4-5.1); Sodium 140 mMol/L (136-145); Total Protein 6.9 gm/dL (5.7-8.2); eGFR > 60 See Note
[2025-03-06] MEDS: ALBUTEROL/IPRATROPIUM (Duoneb) RT SOL 3 ML NEBU INH ×3 (07:17→23:48)
[2025-03-06] MEDS: cefuroxime axetiL 250 MG TABLET 500 MG PO ×2 (08:21→20:07)
[2025-03-06] MEDS: ENOXAPARIN SOD INJ 40 MG/0.4 ML SYRINGE SC (08:22)
[2025-03-06] MEDS: FLUCONAZOLE 100 MG TABLET 400 MG PO (08:22)
--- NOTE | 2025-03-06 09:53 | ESPR_ITS ---
Documentation for date of: 03/06/25 Subjective Subjective Interval history: No overnight events. Patient states to be feeling OK. Continues on high flow saturating well. Patient and at bedside made aware of positive cocci diagnosis. Pending one more negative AFB to rule out TB. Exam Vital Signs Temp Pulse Resp BP Pulse Ox O2 Del Method O2 Flow Rate 97.7 F 70 19 106/73 92 L High Flow Nasal Cannula 20 03/06/25 07:57 03/06/25 07:57 03/06/25 07:57 03/06/25 07:57 03/06/25 07:57 03/06/25 07:57 03/06/25 07:57 FiO2 55 03/06/25 07:57 Narrative Exam General: Awake. On high flownasal cannula Heart: Regular rate and rhythm, no murmurs. Lungs: bilateral fine inspiratory crackles. Abdomen: Soft, nondistended, nontender, positive bowel sounds. ?No guarding or rebound tenderness. Neurologic: Alert and oriented x3, no gross neurological deficit, and patient able to move all 4 extremities. Extremities: No edema. Skin: No rash or ecchymoses. Objective Labs 03/06/25 04:28 03/06/25 04:28 Labs: Laboratory Results - last 24 hr 03/05/25 03/06/25 04:58 04:28 WBC 8.9 RBC 4.30 Hgb 12.8 Hct 38.3 MCV 89 MCH 29.8 MCHC 33.4 RDW Std Deviation 39.5 Plt Count 382 Neut % (Auto) 64 Lymph % (Auto) 20 [place] % (Auto) 7 Eos % (Auto) 3 Baso % (Auto) 1 Neut # (Auto) 5.7 Lymph # (Auto) 1.8 [place] # (Auto) 0.6 Eos # (Auto) 0.2 Baso # (Auto) 0.1 Immature Gran # (Auto) 0.50 H Absolute Nucleated RBC 0.00 Immature Gran % 6 H Nucleated RBC % 0 Sodium 140 Potassium 3.8 Chloride 106 Carbon Dioxide 26.2 Anion Gap 8 BUN 13 Creatinine 0.8 Estim Creat Clear Calc 84.8 eGFR > 60 BUN/Creatinine Ratio 16 Glucose 123 H Calculated Osmolality 280 Calcium 9.5 Corrected Calcium 9.5 Total Bilirubin 0.5 AST 24 ALT 25 Alkaline Phosphatase 102 Total Protein 6.9 Albumin 4.2 Globulin 2.7 Albumin/Globulin Ratio 1.6 Coccidioides IgM Ab Positive A ABG Interpretation ABG results: 03/01/25 03/02/25 17:22 09:30 ABG pH 7.39 7.47 H ABG pCO2 46 39 ABG pO2 37 L* 122 H D ABG HCO3 28 H 28 H ABG O2 Saturation 68 L 100 H ABG Base Excess 3 4 H Quality Measures Quality Measures none Assessment & Plan Assessment Current Active Medications: Generic Name Dose Route Start Last Admin Trade Name Freq PRN Reason Stop Dose Admin Acetaminophen 650 mg 03/01/25 16:26 03/01/25 20:00 Acetaminophen 325 Mg Tablet PO 03/31/25 16:25 650 mg Q6H PRN Administration Fever >100.3 Albuterol/Ipratropium 3 ml 03/03/25 16:45 03/06/25 07:17 Albuterol/Ipratropium (Duoneb) Rt Oriana 3 Ml Nebu INH 04/02/25 16:44 3 ml Q8HRRT MATEO Administration Cefuroxime Axetil 500 mg 03/03/25 21:00 03/06/25 08:21 Cefuroxime Axetil 250 Mg Tablet PO 03/08/25 12:00 500 mg BID MATEO Administration Dextrose 25 ml 03/02/25 08:45 Dextrose 50%-Water Inj 50 Ml Syringe IV 04/01/25 08:44 Q15MIN PRN BG 50-70 responsive npo pt Dextrose 50 ml 03/02/25 08:45 Dextrose 50%-Water Inj 50 Ml Syringe IV 04/01/25 08:44 Q15MIN PRN BG <50 OR BG <70 & pt unresponsive Docusate Sodium 100 mg 03/01/25 16:26 Docusate Sod 100 Mg Capsule PO 03/31/25 16:25 QDAY PRN CONSTIPATION Protocol Enoxaparin Sodium 40 mg 03/02/25 09:00 03/06/25 08:22 Enoxaparin Sod Inj 40 Mg/0.4 Ml Syringe SC 03/16/25 08:59 40 mg QDAY MATEO Administration Fluconazole 400 mg 03/05/25 13:45 03/06/25 08:22 Fluconazole 100 Mg Tablet PO 03/12/25 13:44 400 mg QDAY MATEO Administration Glucagon 1 mg 03/02/25 08:45 Glucagon Inj 1 Mg Vial IM Q15MIN PRN BG <70, and no IV access Insulin Human Lispro 0 unit 03/02/25 11:30 03/06/25 08:21 Insulin Lispro (Admelog) 1 Unit/0.01 Ml Unit SC 04/01/25 11:29 Not Given ACHS MATEO Protocol Ondansetron HCl 4 mg 03/01/25 16:26 Ondansetron Inj 2 Mg/Ml Inj 2 Ml IV 03/31/25 16:25 Q6H PRN NAUSEA OR VOMITING Protocol Promethazine HCl/Dextromethorphan 10 ml 03/01/25 16:47 03/05/25 04:41 Promethazine/Dm Syrup 5 Ml Dose PO 03/31/25 16:46 10 ml Q4HR PRN Administration COUGH Protocol Sodium Chloride 3 ml 03/01/25 13:10 Sodium Chloride Rt Oriana 0.9% 3 Ml Nebu INH 03/31/25 13:09 PRN PRN SOLN Plan 55-year-old female with significant past medical history of diabetes mellitus on metformin presented to the hospital with chief complaints of fever, shortness of breath and cough since 4 days and admitted for acute hypoxic respiratory failure secondary to bilateral pneumonia, to rule out TB # Acute hypoxic respiratory failure # Secondary to cocci pneumonia - Patient saw primary care provider in [facility] and received antibiotics, amoxicillin and clavulanate - Chest x-ray showed bilateral infiltrates - CTA chest showed bilateral miliary pattern infiltrates and negative for pulmonary emboli - Coccidioides IgM antibodies positive on 03/05/2025, reflex sent to [facility] for confirmation - Blood cultures came back negative - Cardiac shows: Normal LV size and function. Estimated EF 55-60%. Grade I diastolic dysfunction. RV is normal in size and systolic function. Mild TR. Plan - AFB send out 1 sample came back negative, pending other 2 samples are pending - Airborne and droplet precautions - Ceftriaxone and azithromycin [03/01-03/03], Changed to cefuroxime(03/03 - present) as per ID recommendations - Nebulizations every 8 hourly - Chest physiotherapy - Oxygen, titration as needed - Incentive spirometry - Promethazine/dexamethasone as needed every 4 hourly - On fluconazole 400 mg QDay - Pending Beta-d glucan # History of diabetes mellitus - Patient is using metformin 500 Mg twice daily at home - HbA1c is ordered, 6.1 Plan - On insulin sliding scale Hospital Maintenance: Dispo: Med tele DVT ppx: Lovenox GI ppx: Protonix Diet: Carbohydrate consistent IV lines: Peripheral Code status: Full code Patient plan of care was discussed with the attending physician, Dr. Santiago Jean, PGY3 Attending Provider Attestation/Addendum Idalia Davis DO, attest that I was physically present for the lewis portions of the service and evaluated the patient with the resident and I reviewed and discussed the case with the resident and agree with the resident's findings and plans of care as documented above Patient seen and evaluated this AM. She reports having some dizziness upon getitng up to commode. She remains on HFNC with flow of 20L/min and FiO2 of 50%. Patient states that she is able to produce sputum. She has been using acapella and IS as instructed. Continue to titrate O2 as tolerated.
[2025-03-06] MEDS: ACETAMINOPHEN 325 MG TABLET 650 MG PO (15:50)
[2025-03-06] MEDS: PROMETHAZINE/DM SYRUP 5 ML DOSE 10 ML PO (15:55)
[2025-03-07] VITALS (11 sets, daily range): BP systolic 96–123; BP diastolic 69–81; PULSE 71–98; RESP 16–30; TEMP 35.9–36.5; O2SAT 87–98
[2025-03-07 06:15] LABS: Basophils % (Auto) 1 % (0-2.5); Eosinophils # (Auto) 0.2 Thou/mm3 (0.0-0.5); Eosinophils % (Auto) 2 % (0-10); Hematocrit 40.8 % (36.0-46.0); Hemoglobin 13.6 g/dL (12.0-16.0); Immature Granulocytes % (Auto) 6 % (0-0); Immature Granulocytes Auto 0.48 Thou/mm3 (0.00-0.00); Lymphocytes # (Auto) 1.9 Thou/mm3 (1.0-4.8); Lymphocytes % (Auto) 24 % (10-50); Mean Corpuscular HGB Conc 33.3 g/dl (31.0-37.0); Mean Corpuscular Hemoglobin 29.8 pg (25.0-35.0); Mean Corpuscular Volume 90 fL (80-100); Monocytes # (Auto) 0.7 Thou/mm3 (0.0-0.8); Monocytes % (Auto) 8 % (0-12); Neutrophils # (Auto) 4.6 Thou/mm3 (1.8-7.7); Neutrophils % (Auto) 59 % (37-80); Nucleated Red Blood Cell % 0 /100 WBC (0); Platelet Count 429 Thou/mm3 (140-440); RDW Standard Deviation 40.5 fL (36.4-46.3); Red Blood Count 4.56 Miln/mm3 (4.00-5.20); White Blood Count 7.9 Thou/mm3 (3.6-11.0)
[2025-03-07 06:52] LABS: Alanine Aminotransferase 29 U/L (10-49); Albumin, Serum 4.3 gm/dL (3.5-5.0); Albumin/Globulin Ratio 1.5 (1.2-2.2); Alkaline Phosphatase 106 U/L (46-116); Anion Gap 8 (7-16); Aspartate Amino Transferase 24 U/L (0-34); BUN/Creatinine Ratio 16 Ratio (12-20); Bilirubin,Total 0.6 mg/dL (0.3-1.2); Blood Urea Nitrogen 13 mg/dL (9-23); Calcium 9.5 mg/dL (8.3-10.6); Calcium (Corrected) 9.5 mg/dL (8.5-10.1); Carbon Dioxide 24.5 mMol/L (20.0-31.0); Chloride 107 mMol/L (98-107); Creatinine (Component) 0.8 mg/dL (0.6-1.3); Estimated Creatinine Clearance 84.8 mL/min (>60); Globulin 2.8 gm/dL (2.3-3.5); Glucose 128 mg/dL (74-106); Magnesium 2.3 mg/dL (1.6-2.6); Osmolality,Calculated 279 (275-295); Phosphorous 3.9 mg/dL (2.4-5.1); Potassium 3.9 mMol/L (3.4-5.1); Sodium 139 mMol/L (136-145); Total Protein 7.1 gm/dL (5.7-8.2); eGFR > 60 See Note
[2025-03-07] MEDS: ALBUTEROL/IPRATROPIUM (Duoneb) RT SOL 3 ML NEBU INH ×3 (07:02→22:58)
[2025-03-07] MEDS: ENOXAPARIN SOD INJ 40 MG/0.4 ML SYRINGE SC (08:56)
[2025-03-07] MEDS: FLUCONAZOLE 100 MG TABLET 400 MG PO (08:56)
[2025-03-07] MEDS: cefuroxime axetiL 250 MG TABLET 500 MG PO ×2 (08:56→20:55)
--- NOTE | 2025-03-07 12:00 | PC.RT ---
Spoke with md about pt possibly being ready to titrate down to oxymask, stated that pt is struggling to maintain o2 of 92% on current high flow settings of 25/50% fio2, continuing to titrate as able on high flow for now.
[2025-03-07] MEDS: PROMETHAZINE/DM SYRUP 5 ML DOSE 10 ML PO ×2 (12:06→20:55)
--- NOTE | 2025-03-07 12:51 | ESPR_ITS ---
<Statement entered by Mio Jean MD - 03/07/25 16:26> Patient seen and assessed at bedside this morning. Patient states to be feeling well. Patient tolerating diet and is having bowel movements. Patient pending 1 more TB sputum to rule out TB. Patient continues on high flow. Case discussed with team. Mio Jean MD PGY3 Documentation for date of: 03/07/25 Subjective Subjective Interval history: Patient is seen and examined at bedside No acute overnight events. Reported that she is feeling better but still complaining of cough with expectoration Patient is still on high flow oxygen with 50% FiO2 and 25 L/min. Discussed with respiratory therapy about weaning her to oxy mask but they could not as of this morning, reported that they will try later in the day. Discontinued insulin sliding scale as patient did not resolve Will continue fluconazole, chest physiotherapy and will try to wean her off the high flow oxygen Exam Vital Signs Temp Pulse Resp BP Pulse Ox O2 Del Method O2 Flow Rate 96.6 F L 86 16 96/69 98 High Flow Nasal Cannula 03/07/25 12:00 03/07/25 12:00 03/07/25 12:00 03/07/25 12:00 03/07/25 12:00 03/07/25 12:00 03/07/25 12:00 FiO2 50 03/07/25 12:00 Narrative Exam General: Awake. On high flow oxygen, 50% FiO2, 25 L/min HEENT: Normocephalic, atraumatic, mucous membranes moist. Heart: Regular rate and rhythm, no murmurs. Lungs: Bronchial breath sounds heard on left lung with inspiratory crackles. Abdomen: Soft, nondistended, nontender, positive bowel sounds. ?No guarding or rebound tenderness. Neurologic: Alert and oriented x3, no gross neurological deficit, and patient able to move all 4 extremities. Extremities: No edema. Skin: No rash or ecchymoses. Objective Labs 03/07/25 05:43 03/07/25 05:43 Labs: Laboratory Results - last 24 hr 03/07/25 05:43 WBC 7.9 RBC 4.56 Hgb 13.6 Hct 40.8 MCV 90 MCH 29.8 MCHC 33.3 RDW Std Deviation 40.5 Plt Count 429 D Neut % (Auto) 59 Lymph % (Auto) 24 [place] % (Auto) 8 Eos % (Auto) 2 Baso % (Auto) 1 Neut # (Auto) 4.6 Lymph # (Auto) 1.9 [place] # (Auto) 0.7 Eos # (Auto) 0.2 Baso # (Auto) 0.0 Immature Gran # (Auto) 0.48 H Absolute Nucleated RBC 0.00 Immature Gran % 6 H Nucleated RBC % 0 Sodium 139 Potassium 3.9 Chloride 107 Carbon Dioxide 24.5 Anion Gap 8 BUN 13 Creatinine 0.8 Estim Creat Clear Calc 84.8 eGFR > 60 BUN/Creatinine Ratio 16 Glucose 128 H Calculated Osmolality 279 Calcium 9.5 Corrected Calcium 9.5 Phosphorus 3.9 Magnesium 2.3 Total Bilirubin 0.6 AST 24 ALT 29 Alkaline Phosphatase 106 Total Protein 7.1 Albumin 4.3 Globulin 2.8 Albumin/Globulin Ratio 1.5 ABG Interpretation ABG results: 03/01/25 03/02/25 17:22 09:30 ABG pH 7.39 7.47 H ABG pCO2 46 39 ABG pO2 37 L* 122 H D ABG HCO3 28 H 28 H ABG O2 Saturation 68 L 100 H ABG Base Excess 3 4 H Quality Measures Quality Measures none Assessment & Plan Assessment Current Active Medications: Generic Name Dose Route Start Last Admin Trade Name Freq PRN Reason Stop Dose Admin Acetaminophen 650 mg 03/06/25 15:44 03/06/25 15:50 Acetaminophen 325 Mg Tablet PO 03/31/25 16:25 650 mg Q6H PRN Administration Fever >100.3, mild pain 1-3 Albuterol/Ipratropium 3 ml 03/03/25 16:45 03/07/25 07:02 Albuterol/Ipratropium (Duoneb) Rt Oriana 3 Ml Nebu INH 04/02/25 16:44 3 ml Q8HRRT MATEO Administration Cefuroxime Axetil 500 mg 03/03/25 21:00 03/07/25 08:56 Cefuroxime Axetil 250 Mg Tablet PO 03/08/25 12:00 500 mg BID MATEO Administration Dextrose 25 ml 03/02/25 08:45 Dextrose 50%-Water Inj 50 Ml Syringe IV 04/01/25 08:44 Q15MIN PRN BG 50-70 responsive npo pt Dextrose 50 ml 03/02/25 08:45 Dextrose 50%-Water Inj 50 Ml Syringe IV 04/01/25 08:44 Q15MIN PRN BG <50 OR BG <70 & pt unresponsive Docusate Sodium 100 mg 03/01/25 16:26 Docusate Sod 100 Mg Capsule PO 03/31/25 16:25 QDAY PRN CONSTIPATION Protocol Enoxaparin Sodium 40 mg 03/02/25 09:00 03/07/25 08:56 Enoxaparin Sod Inj 40 Mg/0.4 Ml Syringe SC 03/16/25 08:59 40 mg QDAY MATEO Administration Fluconazole 400 mg 03/05/25 13:45 03/07/25 08:56 Fluconazole 100 Mg Tablet PO 03/12/25 13:44 400 mg QDAY MATEO Administration Glucagon 1 mg 03/02/25 08:45 Glucagon Inj 1 Mg Vial IM Q15MIN PRN BG <70, and no IV access Insulin Human Lispro 0 unit 03/02/25 11:30 03/07/25 07:29 Insulin Lispro (Admelog) 1 Unit/0.01 Ml Unit SC 04/01/25 11:29 Not Given ACHS MATEO Protocol Ondansetron HCl 4 mg 03/01/25 16:26 Ondansetron Inj 2 Mg/Ml Inj 2 Ml IV 03/31/25 16:25 Q6H PRN NAUSEA OR VOMITING Protocol Promethazine HCl/Dextromethorphan 10 ml 03/01/25 16:47 03/07/25 12:06 Promethazine/Dm Syrup 5 Ml Dose PO 03/31/25 16:46 10 ml Q4HR PRN Administration COUGH Protocol Sodium Chloride 3 ml 03/01/25 13:10 Sodium Chloride Rt Oriana 0.9% 3 Ml Nebu INH 03/31/25 13:09 PRN PRN SOLN Plan 55-year-old female with significant past medical history of diabetes mellitus on metformin presented to the hospital with chief complaints of fever, shortness of breath and cough since 4 days and admitted for acute hypoxic respiratory failure secondary to bilateral pneumonia, to rule out TB # Acute hypoxic respiratory failure # 2/2 Bilateral pneumonia due to coccidoides - presented to the hospital with chief complaints of fever, shortness of breath and cough with expectoration since 4 days - Patient saw primary care provider in [facility] and received antibiotics, amoxicillin and clavulanate - As her symptoms got worsened despite using antibiotics patient presented to the hospital - Vitals at the time of admission showed SpO2 85% with room air, pulse rate 105 bpm - Chest x-ray showed bilateral infiltrates - CTA chest showed bilateral miliary pattern infiltrates and negative for pulmonary emboli - Coccidioides IgM antibodies negative twice on 03/01, 03/03 and positive on 03/05/2025, reflex sent to [facility] for confirmation - Influenza, COVID testing negative - TB QuantiFERON test was sent, came back indeterminate - Blood cultures came back negative - Sputum sent for Gram stain and cultures showed GPC, GNR, YEAST, epithelial cells - likely contaminant - ECHO showed - Normal LV size and function. Estimated EF 55-60%. Grade I diastolic dysfunction. RV is normal in size and systolic function. Mild TR. Plan - AFB send out 1 sample came back negative, other 2 samples are pending - Airborne and droplet precautions - Started on ceftriaxone and azithromycin [03/01-03/03], ceftriaxone is changed to cefuroxime(03/03 - present) as per Dr Barrientos's recommendations - Nebulizations every 8 hourly - Chest physiotherapy - Oxygen, titration as needed - Incentive spirometry - Promethazine/dexamethasone scheduled every 8th hrly. # History of diabetes mellitus - Patient is using metformin 500 Mg twice daily at home - HbA1c is ordered, 6.1 - Her blood glucose levels are within normal limits, will hold insulin for now and will continue oral hypoglycemic medications on outpatient basis. Hospital Maintenance: Dispo: Med tele DVT ppx: Lovenox GI ppx: Protonix Diet: Carbohydrate consistent IV lines: Peripheral Code status: Full code Patient plan of care was discussed with the attending physician, Dr. Henderson and senior resident Dr. Ted Griffith, PGY1 Attending Provider Attestation/Addendum Idalia Davis, DO, attest that I was physically present for the lewis portions of the service and evaluated the patient with the resident and I reviewed and discussed the case with the resident and agree with the resident's findings and plans of care as documented above Patient seen and evaluated this AM. She remains on HFNC with flow of 20L/min and FiO2 of 50%. Patient reports feeling better, but complains of dry cough. Will schedule antitussive. Continue to titrate O2 as tolerated. Will check labs q48h.
[2025-03-07 20:33] LABS: (1-3)-B-D-glucan* 75 pg/mL
[2025-03-08] VITALS (12 sets, daily range): BP systolic 98–107; BP diastolic 64–82; PULSE 75–102; RESP 17–30; TEMP 35.9–36.3; O2SAT 93–97
[2025-03-08] MEDS: PROMETHAZINE/DM SYRUP 5 ML DOSE 10 ML PO ×3 (04:58→21:31)
[2025-03-08] MEDS: ALBUTEROL/IPRATROPIUM (Duoneb) RT SOL 3 ML NEBU INH ×3 (07:22→22:41)
[2025-03-08 08:19] LABS: Interpretation INDETERMINATE
[2025-03-08] MEDS: cefuroxime axetiL 250 MG TABLET 500 MG PO (08:53)
[2025-03-08] MEDS: FLUCONAZOLE 100 MG TABLET 400 MG PO (08:53)
[2025-03-08] MEDS: ENOXAPARIN SOD INJ 40 MG/0.4 ML SYRINGE SC (08:53)
--- NOTE | 2025-03-08 09:07 | PC.SS ---
SS follow up note; Patient is currently on High flow. AFB's pending, patient is on contact precaution. Patient will discharge home when medically cleared.
[2025-03-08] MEDS: ACETAMINOPHEN 325 MG TABLET 650 MG PO (09:08)
--- NOTE | 2025-03-08 09:26 | PC.PT ---
Per RN, patient is currently on 30L High Flow O2 and has been desaturating quickly 2/2 to coughing. Will re-attempt PT eval at another time.
--- NOTE | 2025-03-08 09:50 | PD.RESPRO ---
Documentation for date of: 03/08/25 Subjective Subjective Interval history: Patient seen and assessed at bedside this morning. Patient states she has been coughing more lately and is not feeling as well as she did yesterday. Oxygen requirement slightly increased today on high flow. ID changing from fluconazole to amphotericin B for cocci. Will continue to monitor kidney functions and liver enzymes. Exam Vital Signs Temp Pulse Resp BP Pulse Ox O2 Del Method O2 Flow Rate 97.4 F 75 22 H 98/77 93 L High Flow Nasal Cannula 03/08/25 07:58 03/08/25 07:58 03/08/25 07:58 03/08/25 07:58 03/08/25 07:58 03/08/25 07:58 03/08/25 07:58 FiO2 55 03/08/25 07:58 Narrative Exam General: Awake.AOx4. On high flow oxygen, 65% FiO2, 35 L/min Heart: Tachycardic, no murmurs. Lungs: Crackles/ rhonchi on auscultation bilateral lower lobes. Abdomen: Soft, nondistended, nontender, active bowel sounds. ?No guarding or rebound tenderness. Neurologic: No gross neurological deficit, and patient able to move all 4 extremities. Extremities: No edema. Skin: No rash or ecchymoses. Objective Labs 03/09/25 05:59 03/09/25 05:59 Labs: Laboratory Results - last 24 hr 03/03/25 03/03/25 03/04/25 11:47 22:06 09:10 Mycobacterial Culture See Sep Rpt See Sep Rpt Beta-(1,3)-D-Glucan 75 H B-(1,3)-D-Glucan Intrp INDETERMINATE A ABG Interpretation ABG results: 03/01/25 03/02/25 17:22 09:30 ABG pH 7.39 7.47 H ABG pCO2 46 39 ABG pO2 37 L* 122 H D ABG HCO3 28 H 28 H ABG O2 Saturation 68 L 100 H ABG Base Excess 3 4 H Quality Measures Quality Measures none Assessment & Plan Assessment Current Active Medications: Generic Name Dose Route Start Last Admin Trade Name Freq PRN Reason Stop Dose Admin Acetaminophen 650 mg 03/06/25 15:44 03/08/25 09:08 Acetaminophen 325 Mg Tablet PO 03/31/25 16:25 650 mg Q6H PRN Administration Fever >100.3, mild pain 1-3 Albuterol/Ipratropium 3 ml 03/03/25 16:45 03/08/25 07:22 Albuterol/Ipratropium (Duoneb) Rt Oriana 3 Ml Nebu INH 04/02/25 16:44 3 ml Q8HRRT MATEO Administration Cefuroxime Axetil 500 mg 03/03/25 21:00 03/08/25 08:53 Cefuroxime Axetil 250 Mg Tablet PO 03/08/25 12:00 500 mg BID MATEO Administration Docusate Sodium 100 mg 03/01/25 16:26 Docusate Sod 100 Mg Capsule PO 03/31/25 16:25 QDAY PRN CONSTIPATION Protocol Enoxaparin Sodium 40 mg 03/02/25 09:00 03/08/25 08:53 Enoxaparin Sod Inj 40 Mg/0.4 Ml Syringe SC 03/16/25 08:59 40 mg QDAY MATEO Administration Fluconazole 400 mg 03/05/25 13:45 03/08/25 08:53 Fluconazole 100 Mg Tablet PO 03/12/25 13:44 400 mg QDAY MATEO Administration Ondansetron HCl 4 mg 03/01/25 16:26 Ondansetron Inj 2 Mg/Ml Inj 2 Ml IV 03/31/25 16:25 Q6H PRN NAUSEA OR VOMITING Protocol Promethazine HCl/Dextromethorphan 10 ml 03/07/25 15:30 03/08/25 04:58 Promethazine/Dm Syrup 5 Ml Dose PO 04/06/25 15:29 10 ml TID MATEO Administration Protocol Sodium Chloride 3 ml 03/01/25 13:10 Sodium Chloride Rt Oriana 0.9% 3 Ml Nebu INH 03/31/25 13:09 PRN PRN SOLN Plan 55-year-old female with significant past medical history of diabetes mellitus on metformin presented to the hospital with chief complaints of fever, shortness of breath and cough since 4 days and admitted for acute hypoxic respiratory failure secondary to bilateral pneumonia, to rule out TB # Acute hypoxic respiratory failure # 2/2 Bilateral pneumonia due to coccidoides - presented to the hospital with chief complaints of fever, shortness of breath and cough with expectoration since 4 days - Patient saw primary care provider in [facility] and received antibiotics, amoxicillin and clavulanate - As her symptoms got worsened despite using antibiotics patient presented to the hospital - Vitals at the time of admission showed SpO2 85% with room air, pulse rate 105 bpm - Chest x-ray showed bilateral infiltrates - CTA chest showed bilateral miliary pattern infiltrates and negative for pulmonary emboli - Coccidioides IgM antibodies negative twice on 03/01, 03/03 and positive on 03/05/2025, reflex sent to [facility] for confirmation - Influenza, COVID testing negative - TB QuantiFERON test was sent, came back indeterminate - Blood cultures came back negative - Sputum sent for Gram stain and cultures showed GPC, GNR, YEAST, epithelial cells - likely contaminant - ECHO showed - Normal LV size and function. Estimated EF 55-60%. Grade I diastolic dysfunction. RV is normal in size and systolic function. Mild TR. Plan - AFB Negative x 3 - Started on ceftriaxone and azithromycin [03/01-03/03], ceftriaxone is changed to cefuroxime(03/03 - present) as per Dr Barrientos's recommendations - Nebulizations every 8 hourly - Chest physiotherapy - Oxygen, titration as needed - Incentive spirometry - Promethazine/dexamethasone scheduled every 8th hrly. - Beta D glucan high. - Fluconazole 400mg daily---> changed to Amphotericin B per ID # History of diabetes mellitus - Patient is using metformin 500 Mg twice daily at home - HbA1c is ordered, 6.1 - Her blood glucose levels are within normal limits, will hold insulin for now and will continue oral hypoglycemic medications on outpatient basis. Hospital Maintenance: Dispo: Med tele DVT ppx: Lovenox GI ppx: Protonix Diet: Carbohydrate consistent IV lines: Peripheral Code status: Full code Patient plan of care was discussed with the attending physician, Dr. Santiago Jean, PGY3 Attending Provider Attestation/Addendum Idalia Davis, DO, attest that I was physically present for the lewis portions of the service and evaluated the patient with the resident and I reviewed and discussed the case with the resident and agree with the resident's findings and plans of care as documented above Patient seen and evaluated this AM. Patient reports having worsening dyspnea in AM requring increased O2 demand of 35L/min, Fio2 of 65%. Patient reports feeling better at this time. Due to lack of improvement on fluconazole, ID has switched to amphotericin until improvement is seen. Will monitor renal function and electrolytes closely.
--- NOTE | 2025-03-08 10:25 | PD.IDPROG ---
Subjective Subjective Interval history: 55 y/o with neg afb x3 and pos cocci. not better on flucon, still on 60-65% O2 high flow. Exam Vital Signs Temp Pulse Resp BP Pulse Ox O2 Del Method O2 Flow Rate 97.4 F 75 22 H 98/77 93 L High Flow Nasal Cannula 25 03/08/25 07:58 03/08/25 07:58 03/08/25 07:58 03/08/25 07:58 03/08/25 07:58 03/08/25 07:58 03/08/25 07:58 FiO2 55 03/08/25 07:58 Narrative Exam polish only, worked with staff to find a polish speaking nurse explained the rx. will give ampho till improved then change back. to flucon. a1c 6.1 on metformin, so more borderline. Objective - Internal Medicine Labs 03/07/25 05:43 03/07/25 05:43 Labs: Laboratory Results - last 24 hr 03/03/25 03/03/25 03/04/25 11:47 22:06 09:10 Mycobacterial Culture See Sep Rpt See Sep Rpt Beta-(1,3)-D-Glucan 75 H B-(1,3)-D-Glucan Intrp INDETERMINATE A ABG Interpretation ABG results: 03/01/25 03/02/25 17:22 09:30 ABG pH 7.39 7.47 H ABG pCO2 46 39 ABG pO2 37 L* 122 H D ABG HCO3 28 H 28 H ABG O2 Saturation 68 L 100 H ABG Base Excess 3 4 H Assessment & Plan A&P Narrative atypical pulm process. one afb neg so far hypoxia dm, a1c <<7 noted. well controlled a1c 6.1 on 03/02 bnp ok. covid neg. rsv neg, procal neg.cocci neg then pos. procal is insensitive to atypical pathogens, fungi,and viruses. you can get a viral resp panel at the [facility] lab. that may be prudent before an invasive procedure performed.or steroids given. if you are dying to start something note that flucon is ok and po is same as iv. will remove isolation as that seems superfluous at this time Time Spent With Patient Time: Total time spent is greater than 50% in coordination of care (as documented) at patient's floor/unit and/or counseling patient:
--- NOTE | 2025-03-08 10:41 | PC.IP ---
Pt.'s AFBs X3 results are negative. Notified Navin Tavera RN that pt. may be removed from Airborne Precautions. RN verbalized understanding.
[2025-03-08] MEDS: SODIUM CHLORIDE 0.9% 250 ML 250 ML 999 ML IV (11:45)
[2025-03-08] MEDS: DiphenhydrAMINE INJ 50 MG/ML VIAL 25 MG IVP (12:14)
[2025-03-08] MEDS: WATER IV (12:50)
[2025-03-08] MEDS: AMPHOTERICIN B LIPOSOME IV (12:50)
[2025-03-08] MEDS: DEXTROSE 5% IV (12:50)
[2025-03-09] VITALS (11 sets, daily range): BP systolic 100–108; BP diastolic 65–72; PULSE 72–106; RESP 15–31; TEMP 36.1–36.4; O2SAT 90–95
[2025-03-09] MEDS: PROMETHAZINE/DM SYRUP 5 ML DOSE 10 ML PO ×3 (05:51→21:52)
[2025-03-09 06:15] LABS: Basophils % (Auto) 0 % (0-2.5); Eosinophils # (Auto) 0.1 Thou/mm3 (0.0-0.5); Eosinophils % (Auto) 1 % (0-10); Hematocrit 38.5 % (36.0-46.0); Hemoglobin 12.9 g/dL (12.0-16.0); Immature Granulocytes % (Auto) 3 % (0-0); Immature Granulocytes Auto 0.27 Thou/mm3 (0.00-0.00); Lymphocytes # (Auto) 1.5 Thou/mm3 (1.0-4.8); Lymphocytes % (Auto) 15 % (10-50); Mean Corpuscular HGB Conc 33.5 g/dl (31.0-37.0); Mean Corpuscular Hemoglobin 30.1 pg (25.0-35.0); Mean Corpuscular Volume 90 fL (80-100); Monocytes # (Auto) 0.7 Thou/mm3 (0.0-0.8); Monocytes % (Auto) 8 % (0-12); Neutrophils # (Auto) 7.1 Thou/mm3 (1.8-7.7); Neutrophils % (Auto) 73 % (37-80); Nucleated Red Blood Cell % 0 /100 WBC (0); Platelet Count 420 Thou/mm3 (140-440); RDW Standard Deviation 41.5 fL (36.4-46.3); Red Blood Count 4.29 Miln/mm3 (4.00-5.20); White Blood Count 9.8 Thou/mm3 (3.6-11.0)
[2025-03-09] MEDS: ALBUTEROL/IPRATROPIUM (Duoneb) RT SOL 3 ML NEBU INH ×3 (06:26→22:42)
[2025-03-09 06:44] LABS: Alanine Aminotransferase 31 U/L (10-49); Albumin, Serum 4.3 gm/dL (3.5-5.0); Albumin/Globulin Ratio 1.7 (1.2-2.2); Alkaline Phosphatase 105 U/L (46-116); Anion Gap 9 (7-16); Aspartate Amino Transferase 22 U/L (0-34); BUN/Creatinine Ratio 15 Ratio (12-20); Bilirubin,Total 0.6 mg/dL (0.3-1.2); Blood Urea Nitrogen 18 mg/dL (9-23); Calcium 9.4 mg/dL (8.3-10.6); Calcium (Corrected) 9.4 mg/dL (8.5-10.1); Chloride 107 mMol/L (98-107); Creatinine (Component) 1.2 mg/dL (0.6-1.3); Estimated Creatinine Clearance 56.6 mL/min (>60); Globulin 2.6 gm/dL (2.3-3.5); Glucose 128 mg/dL (74-106); Osmolality,Calculated 279 (275-295); Potassium 4.3 mMol/L (3.4-5.1); Sodium 138 mMol/L (136-145); Total Protein 6.9 gm/dL (5.7-8.2); eGFR 54 See Note
[2025-03-09] MEDS: ENOXAPARIN SOD INJ 40 MG/0.4 ML SYRINGE SC (08:15)
[2025-03-09] MEDS: WATER IV (11:41)
[2025-03-09] MEDS: DEXTROSE 5% IV (11:41)
[2025-03-09] MEDS: AMPHOTERICIN B LIPOSOME IV (11:41)
--- NOTE | 2025-03-09 17:01 | ESPR_ITS ---
<Statement entered by Jason Gomes MD - 03/15/25 13:19> I reviewed above note and agree with findings and plans. I have also personally examined the patient with medicine team and went over assessment and plan with medical team including equine internship and resident physician. <Statement entered by Lizandro Gilmore MD - 03/10/25 14:37> Senior Resident Attestation: I supervised/discussed management plan with equine internship physician Dr. Griffith, and was involved in the care of this patient. I personally saw and examined the patient and discussed the assessment and plan with the entire medicine team, including my attending. I agree with the assessment and plan as documented. Patient continues to be on high flow oxygen and her condition remained unchanged. Per ID fluconazole was discontinued and amphotericin B was started. Will continue current management and monitor patient. Patient's care was discussed with attending physician, Dr. Gomes. Lizandro Gilmore MD PGY-2. Documentation for date of: 03/09/25 Subjective Subjective Interval history: Patient is seen and examined at bedside No acute overnight events. Still complaining of shortness of breath and cough with expectoration Vitals are stable and patient is still on high flow oxygen, 30 L/min with 45% FiO2 On physical examination, bilateral mild wheeze heard and fine inspiratory crackles heard on the left lung CBC and CMP are within normal limits Will continue amphotericin B 250 mg IV every day Recommended to continue chest physiotherapy Exam Vital Signs Temp Pulse Resp BP Pulse Ox O2 Del Method O2 Flow Rate 97.6 F 72 15 100/65 93 L High Flow Nasal Cannula 28 03/09/25 12:00 03/09/25 16:00 03/09/25 14:09 03/09/25 12:00 03/09/25 14:09 03/09/25 12:00 03/09/25 14:09 FiO2 45 03/09/25 14:09 Narrative Exam General: Awake. On high flow oxygen, 50% FiO2, 25 L/min HEENT: Normocephalic, atraumatic, mucous membranes moist. Heart: Regular rate and rhythm, no murmurs. Lungs: Bronchial breath sounds heard on left lung with inspiratory crackles. Abdomen: Soft, nondistended, nontender, positive bowel sounds. ?No guarding or rebound tenderness. Neurologic: Alert and oriented x3, no gross neurological deficit, and patient able to move all 4 extremities. Extremities: No edema. Skin: No rash or ecchymoses. Objective Labs 03/09/25 05:59 03/09/25 05:59 Labs: Laboratory Results - last 24 hr 03/09/25 05:59 WBC 9.8 RBC 4.29 Hgb 12.9 Hct 38.5 MCV 90 MCH 30.1 MCHC 33.5 RDW Std Deviation 41.5 Plt Count 420 Neut % (Auto) 73 Lymph % (Auto) 15 Ponce % (Auto) 8 Eos % (Auto) 1 Baso % (Auto) 0 Neut # (Auto) 7.1 Lymph # (Auto) 1.5 Ponce # (Auto) 0.7 Eos # (Auto) 0.1 Baso # (Auto) 0.0 Immature Gran # (Auto) 0.27 H Absolute Nucleated RBC 0.00 Immature Gran % 3 H Nucleated RBC % 0 Sodium 138 Potassium 4.3 Chloride 107 Carbon Dioxide 22.0 Anion Gap 9 BUN 18 Creatinine 1.2 Estim Creat Clear Calc 56.6 L eGFR 54 L BUN/Creatinine Ratio 15 Glucose 128 H Calculated Osmolality 279 Calcium 9.4 Corrected Calcium 9.4 Total Bilirubin 0.6 AST 22 ALT 31 Alkaline Phosphatase 105 Total Protein 6.9 Albumin 4.3 Globulin 2.6 Albumin/Globulin Ratio 1.7 ABG Interpretation ABG results: 03/01/25 03/02/25 17:22 09:30 ABG pH 7.39 7.47 H ABG pCO2 46 39 ABG pO2 37 L* 122 H D ABG HCO3 28 H 28 H ABG O2 Saturation 68 L 100 H ABG Base Excess 3 4 H Quality Measures Quality Measures none Assessment & Plan Assessment Current Active Medications: Generic Name Dose Route Start Last Admin Trade Name Freq PRN Reason Stop Dose Admin Acetaminophen 650 mg 03/06/25 15:44 03/08/25 09:08 Acetaminophen 325 Mg Tablet PO 03/31/25 16:25 650 mg Q6H PRN Administration Fever >100.3, mild pain 1-3 Acetaminophen 650 mg 03/08/25 11:08 Acetaminophen 325 Mg Tablet PO 04/07/25 11:07 Q24H PRN FEVER >101 Albuterol/Ipratropium 3 ml 03/03/25 16:45 03/09/25 14:07 Albuterol/Ipratropium (Duoneb) Rt Oriana 3 Ml Nebu INH 04/02/25 16:44 3 ml Q8HRRT MATEO Administration Docusate Sodium 100 mg 03/01/25 16:26 Docusate Sod 100 Mg Capsule PO 03/31/25 16:25 QDAY PRN CONSTIPATION Protocol Enoxaparin Sodium 40 mg 03/02/25 09:00 03/09/25 08:15 Enoxaparin Sod Inj 40 Mg/0.4 Ml Syringe SC 03/16/25 08:59 40 mg QDAY MATEO Administration Amphotericin B 250 mg/ 162.5 mls @ 81.25 mls/hr 03/08/25 11:30 03/09/25 11:41 Dextrose IV 03/15/25 11:29 81.25 mls/hr Q24H MATEO Administration Ondansetron HCl 4 mg 03/01/25 16:26 Ondansetron Inj 2 Mg/Ml Inj 2 Ml IV 03/31/25 16:25 Q6H PRN NAUSEA OR VOMITING Protocol Promethazine HCl/Dextromethorphan 10 ml 03/07/25 15:30 03/09/25 13:33 Promethazine/Dm Syrup 5 Ml Dose PO 04/06/25 15:29 10 ml TID MATEO Administration Protocol Sodium Chloride 3 ml 03/01/25 13:10 Sodium Chloride Rt Oriana 0.9% 3 Ml Nebu INH 03/31/25 13:09 PRN PRN SOLN Plan 55-year-old female with significant past medical history of diabetes mellitus on metformin presented to the hospital with chief complaints of fever, shortness of breath and cough since 4 days and admitted for acute hypoxic respiratory failure secondary to bilateral pneumonia # Acute hypoxic respiratory failure # 2/2 Bilateral pneumonia due to coccidoides - presented to the hospital with chief complaints of fever, shortness of breath and cough with expectoration since 4 days - Patient saw primary care provider in [facility] and received antibiotics, amoxicillin and clavulanate - As her symptoms got worsened despite using antibiotics patient presented to the hospital - Vitals at the time of admission showed SpO2 85% with room air, pulse rate 105 bpm - Chest x-ray showed bilateral infiltrates - CTA chest showed bilateral miliary pattern infiltrates and negative for pulmonary emboli - Coccidioides IgM antibodies negative twice on 03/01, 03/03 and positive on 03/05/2025, reflex sent to [facility] for confirmation, Beta D glucan- 75 - Influenza, COVID testing negative - TB QuantiFERON test was sent, came back indeterminate, repeat sample was sent - Blood cultures came back negative - Sputum sent for Gram stain and cultures showed GPC, GNR, YEAST, epithelial cells - likely contaminant - ECHO showed - Normal LV size and function. Estimated EF 55-60%. Grade I diastolic dysfunction. RV is normal in size and systolic function. Mild TR. - AFB Negative x 3 Plan - Started on ceftriaxone and azithromycin [03/01-03/03], ceftriaxone is changed to cefuroxime(03/03 - 03/08) as per Dr Barrientos's recommendations - Nebulizations every 8 hourly - Chest physiotherapy - Oxygen, titration as needed - Incentive spirometry - Promethazine/dexamethasone scheduled every 8th hrly. - Fluconazole 400mg daily [03/05-03/07] ---> changed to Amphotericin B per ID from 03/08/2025-current # History of diabetes mellitus - Patient is using metformin 500 Mg twice daily at home - HbA1c is ordered, 6.1 - Her blood glucose levels are within normal limits, will hold insulin for now and will continue oral hypoglycemic medications on outpatient basis. Hospital Maintenance: Dispo: Med tele DVT ppx: Lovenox GI ppx: Protonix Diet: Carbohydrate consistent IV lines: Peripheral Code status: Full code Patient plan of care was discussed with the attending physician, Dr. Gomes and senior resident Dr. Deirdre Griffith, PGY1
--- NOTE | 2025-03-09 17:36 | PC.PT ---
PT eval only. Patient is I with bed mobility and transfers. Unable to ambulate due to patient is connected to [facility].
[2025-03-09] MEDS: ACETAMINOPHEN 325 MG TABLET 650 MG PO (18:31)
[2025-03-10] VITALS (13 sets, daily range): BP systolic 97–127; BP diastolic 64–82; PULSE 68–98; RESP 16–26; TEMP 36–36.4; O2SAT 92–100; BMI 30.5
[2025-03-10] MEDS: ACETAMINOPHEN 325 MG TABLET 650 MG PO ×2 (02:50→12:10)
[2025-03-10] MEDS: PROMETHAZINE/DM SYRUP 5 ML DOSE 10 ML PO (05:15)
[2025-03-10] MEDS: ALBUTEROL/IPRATROPIUM (Duoneb) RT SOL 3 ML NEBU INH ×3 (06:25→22:36)
[2025-03-10 07:16] LABS: Anion Gap 12 (7-16); BUN/Creatinine Ratio 15 Ratio (12-20); Blood Urea Nitrogen 23 mg/dL (9-23); Carbon Dioxide 22.4 mMol/L (20.0-31.0); Chloride 104 mMol/L (98-107); Creatinine (Component) 1.5 mg/dL (0.6-1.3); Estimated Creatinine Clearance 45.2 mL/min (>60); Glucose 143 mg/dL (74-106); Osmolality,Calculated 281 (275-295); Phosphorous 5.5 mg/dL (2.4-5.1); Potassium 3.7 mMol/L (3.4-5.1); Sodium 138 mMol/L (136-145); eGFR 41 See Note
[2025-03-10 08:18] LABS: Magnesium 2.3 mg/dL (1.6-2.6)
[2025-03-10] MEDS: ENOXAPARIN SOD INJ 40 MG/0.4 ML SYRINGE SC (08:23)
[2025-03-10] MEDS: SODIUM CHLORIDE 0.9% 1000 ML 1,000 ML 80 ML IV (08:23)
[2025-03-10] MEDS: SODIUM CHLORIDE 0.9% 500 ML 500 ML IV (08:23)
[2025-03-10] MEDS: FLUCONAZOLE/NS 400 MG IVPB 800 MG/400 ML BAG 100 MG IV (09:46)
[2025-03-10 12:46] LABS: Anion Gap 9 (7-16); BUN/Creatinine Ratio 16 Ratio (12-20); Blood Urea Nitrogen 22 mg/dL (9-23); Carbon Dioxide 23.7 mMol/L (20.0-31.0); Chloride 104 mMol/L (98-107); Creatinine (Component) 1.4 mg/dL (0.6-1.3); Estimated Creatinine Clearance 48.5 mL/min (>60); Glucose 95 mg/dL (74-106); Sodium 137 mMol/L (136-145); eGFR 45 See Note
[2025-03-10 12:47] LABS: Albumin, Serum 3.8 gm/dL (3.5-5.0); Calcium 8.5 mg/dL (8.3-10.6); Calcium (Corrected) 8.7 mg/dL (8.5-10.1); Osmolality,Calculated 277 (275-295); Phosphorous 4.9 mg/dL (2.4-5.1)
--- NOTE | 2025-03-10 13:46 | PC.SS ---
SS follow up note; Patient is currently on high flow and getting IV ABX. Patient will discharge back home when medically cleared.
--- NOTE | 2025-03-10 13:59 | ESPR_ITS ---
<Statement entered by Jason Gomes MD - 03/16/25 13:38> I reviewed above note and agree with findings and plans. I have also personally examined the patient with medicine team and went over assessment and plan with medical team including general internal medicine doctor and resident physician. <Statement entered by Lizandro Gilmore MD - 03/13/25 07:06> Senior Resident Attestation: I supervised/discussed management plan with general internal medicine doctor physician Dr. Griffith, and was involved in the care of this patient. I personally saw and examined the patient and discussed the assessment and plan with the entire medicine team, including my attending. I agree with the assessment and plan as documented. Patient continues on high flow oxygen and fluconazole. Her creatinine increased to 1.5 and she was given IVF bolus and started on maintains. Patient's care was discussed with attending physician, Dr. Gomes. Lizandro Gilmore MD PGY-2. Documentation for date of: 03/10/25 Subjective Subjective Interval history: Patient is seen and examined at bedside No acute overnight events. Still complaining of shortness of breath and cough with expectoration Patient is currently on high flow oxygen, 30 L/min, 60% FiO2 saturating around 97% On physical examination, bilateral bronchial breath sounds are heard with inspiratory crackles on the left side Labs done today showed elevated creatinine to 1.5, but patient is able to produce adequate amount of urine Patient was given 500 mL bolus of NS, started on IV fluids at 80 mL/h Discontinued and started on fluconazole 800 Mg IV daily Strict input and output monitoring and encouraged patient to take plenty of oral fluids Exam Vital Signs Temp Pulse Resp BP Pulse Ox O2 Del Method O2 Flow Rate 96.9 F 72 20 97/64 96 High Flow Nasal Cannula 30 03/10/25 12:00 03/10/25 12:00 03/10/25 12:00 03/10/25 12:00 03/10/25 12:00 03/10/25 12:00 03/10/25 12:00 FiO2 60 03/10/25 12:00 Narrative Exam General: Awake. On high flow oxygen, 60% FiO2, 30 L/min HEENT: Normocephalic, atraumatic, mucous membranes moist. Heart: Regular rate and rhythm, no murmurs. Lungs: Bronchial breath sounds heard on left lung with inspiratory crackles. Abdomen: Soft, nondistended, nontender, positive bowel sounds. ?No guarding or rebound tenderness. Neurologic: Alert and oriented x3, no gross neurological deficit, and patient able to move all 4 extremities. Extremities: No edema. Skin: No rash or ecchymoses. Objective Labs 03/09/25 05:59 03/10/25 12:15 Labs: Laboratory Results - last 24 hr 03/10/25 03/10/25 05:58 12:15 Sodium 138 137 Potassium 3.7 D 4.0 Chloride 104 104 Carbon Dioxide 22.4 23.7 Anion Gap 12 9 BUN 23 22 Creatinine 1.5 H 1.4 H Estim Creat Clear Calc 45.2 L 48.5 L eGFR 41 L 45 L BUN/Creatinine Ratio 15 16 Glucose 143 H 95 Calculated Osmolality 281 277 Calcium 9.0 8.5 Corrected Calcium 9.0 8.7 Phosphorus 5.5 H 4.9 Magnesium 2.3 Albumin 4.0 3.8 ABG Interpretation ABG results: 03/01/25 03/02/25 17:22 09:30 ABG pH 7.39 7.47 H ABG pCO2 46 39 ABG pO2 37 L* 122 H D ABG HCO3 28 H 28 H ABG O2 Saturation 68 L 100 H ABG Base Excess 3 4 H Quality Measures Quality Measures none Assessment & Plan Assessment Current Active Medications: Generic Name Dose Route Start Last Admin Trade Name Freq PRN Reason Stop Dose Admin Acetaminophen 650 mg 03/06/25 15:44 03/10/25 12:10 Acetaminophen 325 Mg Tablet PO 03/31/25 16:25 650 mg Q6H PRN Administration Fever >100.3, mild pain 1-3 Acetaminophen 650 mg 03/08/25 11:08 Acetaminophen 325 Mg Tablet PO 04/07/25 11:07 Q24H PRN FEVER >101 Albuterol/Ipratropium 3 ml 03/03/25 16:45 03/10/25 06:25 Albuterol/Ipratropium (Duoneb) Rt Oriana 3 Ml Nebu INH 04/02/25 16:44 3 ml Q8HRRT MATEO Administration Docusate Sodium 100 mg 03/01/25 16:26 Docusate Sod 100 Mg Capsule PO 03/31/25 16:25 QDAY PRN CONSTIPATION Protocol Enoxaparin Sodium 40 mg 03/02/25 09:00 03/10/25 08:23 Enoxaparin Sod Inj 40 Mg/0.4 Ml Syringe SC 03/16/25 08:59 40 mg QDAY MATEO Administration Amphotericin B 250 mg/ 162.5 mls @ 81.25 mls/hr 03/08/25 11:30 03/09/25 11:41 Dextrose IV 03/15/25 11:29 81.25 mls/hr Q24H MATEO Administration Sodium Chloride 1,000 mls @ 80 mls/hr 03/10/25 08:45 03/10/25 08:23 Ns IV 03/10/25 21:14 80 mls/hr .[id number] ONE Administration Fluconazole 800 mg in 400 mls @ 100 mls/hr 03/10/25 08:42 03/10/25 09:46 Diflucan/Ns Ivpb IV 03/17/25 08:41 100 mls/hr QDAY MATEO Administration Ondansetron HCl 4 mg 03/01/25 16:26 Ondansetron Inj 2 Mg/Ml Inj 2 Ml IV 03/31/25 16:25 Q6H PRN NAUSEA OR VOMITING Protocol Promethazine HCl/Dextromethorphan 10 ml 03/07/25 15:30 03/10/25 05:15 Promethazine/Dm Syrup 5 Ml Dose PO 04/06/25 15:29 10 ml TID MATEO Administration Protocol Sodium Chloride 3 ml 03/01/25 13:10 Sodium Chloride Rt Oriana 0.9% 3 Ml Nebu INH 03/31/25 13:09 PRN PRN SOLN Plan 55-year-old female with significant past medical history of diabetes mellitus on metformin presented to the hospital with chief complaints of fever, shortness of breath and cough since 4 days and admitted for acute hypoxic respiratory failure secondary to bilateral pneumonia # Acute hypoxic respiratory failure # 2/2 Bilateral pneumonia due to coccidoides - presented to the hospital with chief complaints of fever, shortness of breath and cough with expectoration since 4 days - Patient saw primary care provider in [facility] and received antibiotics, amoxicillin and clavulanate - As her symptoms got worsened despite using antibiotics patient presented to the hospital - Vitals at the time of admission showed SpO2 85% with room air, pulse rate 105 bpm - Chest x-ray showed bilateral infiltrates - CTA chest showed bilateral miliary pattern infiltrates and negative for pulmonary emboli - Coccidioides IgM antibodies negative twice on 03/01, 03/03 and positive on 03/05/2025, reflex sent to [facility] for confirmation, Beta D glucan- 75 - Influenza, COVID testing negative - TB QuantiFERON test was sent, came back indeterminate, repeat sample was sent - Blood cultures came back negative - Sputum sent for Gram stain and cultures showed GPC, GNR, YEAST, epithelial cells - likely contaminant - ECHO showed - Normal LV size and function. Estimated EF 55-60%. Grade I diastolic dysfunction. RV is normal in size and systolic function. Mild TR. - AFB Negative x 3 Plan - Started on ceftriaxone and azithromycin [03/01-03/03], ceftriaxone is changed to cefuroxime(03/03 - 03/08) as per Dr Barrientos's recommendations - Fluconazole 400mg IV daily [03/05-03/07] ---> changed to Amphotericin B per ID from 03/08/2025- 03/09 - Amphotericin B is stopped as of 03/10/2025 in view of acute kidney injury and patient is restarted on fluconazole 800 Mg IV daily [03/10- - Nebulizations every 8 hourly - Chest physiotherapy and Incentive spirometry - Oxygen, titration as needed - Promethazine/dexamethasone scheduled every 8th hrly. - Dr Barrientos is consulted and will appreciate his recommendations # Acute kidney injury Secondary to amphotericin B - Baseline creatinine at the time of admission is 0.7 - As of 03/10/2025, creatinine is 1.5, but patient is having adequate renal output Plan - Patient was given 500 mL bolus on 03/10/2025 and started on IV fluids, NS at 80ml/ hr - Strict input and output - Encouraged patient to take plenty of oral fluids - Will continue to monitor renal functions - Will avoid nephrotoxic medications and renally dose medications - If renal functions does not improve, will consult nephrology if needed # History of diabetes mellitus - Patient is using metformin 500 Mg twice daily at home - HbA1c is ordered, 6.1 - Her blood glucose levels are within normal limits, will hold insulin for now and will continue oral hypoglycemic medications on outpatient basis. Hospital Maintenance: Dispo: Med tele DVT ppx: Lovenox GI ppx: Protonix Diet: Carbohydrate consistent IV lines: Peripheral Code status: Full code Patient plan of care was discussed with the attending physician, Dr. Gomes and senior resident Dr. Deirdre Griffith, PGY1
[2025-03-10 14:33] LABS: Lactate (Lactic Acid) 1.6 mMol/L (0.4-2.0)
[2025-03-10 14:37] LABS: Basophils % (Auto) 0 % (0-2.5); Eosinophils # (Auto) 0.1 Thou/mm3 (0.0-0.5); Eosinophils % (Auto) 1 % (0-10); Hematocrit 34.8 % (36.0-46.0); Hemoglobin 11.9 g/dL (12.0-16.0); Immature Granulocytes % (Auto) 1 % (0-0); Immature Granulocytes Auto 0.09 Thou/mm3 (0.00-0.00); Lymphocytes # (Auto) 1.3 Thou/mm3 (1.0-4.8); Lymphocytes % (Auto) 16 % (10-50); Mean Corpuscular HGB Conc 34.2 g/dl (31.0-37.0); Mean Corpuscular Volume 88 fL (80-100); Monocytes # (Auto) 0.7 Thou/mm3 (0.0-0.8); Monocytes % (Auto) 8 % (0-12); Neutrophils # (Auto) 6.1 Thou/mm3 (1.8-7.7); Neutrophils % (Auto) 73 % (37-80); Nucleated Red Blood Cell % 0 /100 WBC (0); Platelet Count 423 Thou/mm3 (140-440); RDW Standard Deviation 40.2 fL (36.4-46.3); Red Blood Count 3.97 Miln/mm3 (4.00-5.20); White Blood Count 8.4 Thou/mm3 (3.6-11.0)
--- NOTE | 2025-03-10 14:44 | PD.IDPROG ---
Subjective Subjective Interval history: gita noted on amphot, so back to flucon at high dose. oral is same as iv for flucon. Exam Vital Signs Temp Pulse Resp BP Pulse Ox O2 Del Method O2 Flow Rate 96.9 F 72 20 97/64 96 High Flow Nasal Cannula 30 03/10/25 12:00 03/10/25 12:00 03/10/25 12:00 03/10/25 12:00 03/10/25 12:00 03/10/25 12:00 03/10/25 12:00 FiO2 60 03/10/25 12:00 Narrative Exam limited eval. 7 new cases, so visits limited for many Objective - Internal Medicine Labs 03/09/25 05:59 03/10/25 12:15 Labs: Laboratory Results - last 24 hr 03/10/25 03/10/25 03/10/25 05:58 12:15 13:55 Sodium 138 137 Potassium 3.7 D 4.0 Chloride 104 104 Carbon Dioxide 22.4 23.7 Anion Gap 12 9 BUN 23 22 Creatinine 1.5 H 1.4 H Estim Creat Clear Calc 45.2 L 48.5 L eGFR 41 L 45 L BUN/Creatinine Ratio 15 16 Glucose 143 H 95 Calculated Osmolality 281 277 Lactic Acid 1.6 Calcium 9.0 8.5 Corrected Calcium 9.0 8.7 Phosphorus 5.5 H 4.9 Magnesium 2.3 Albumin 4.0 3.8 ABG Interpretation ABG results: 03/01/25 03/02/25 17:22 09:30 ABG pH 7.39 7.47 H ABG pCO2 46 39 ABG pO2 37 L* 122 H D ABG HCO3 28 H 28 H ABG O2 Saturation 68 L 100 H ABG Base Excess 3 4 H Assessment & Plan A&P Narrative atypical pulm process. af's neg so far hypoxia on hig flow O2 dm, a1c <<7 noted. well controlled a1c 6.1 on 03/02 bnp ok. covid neg. rsv neg, procal neg.cocci neg then pos. looks and sounds like cocci confirmation at [facility] pending. may have it by saturday agree with no isolation will check in again saturday. if cocci confirmed and pt worse, ampho may still be the way to go. even if some toxicity is noted. Time Spent With Patient Time: Total time spent is greater than 50% in coordination of care (as documented) at patient's floor/unit and/or counseling patient:
[2025-03-10] MEDS: guaiFENesin SYRUP 200 MG/10 ML UDC PO ×2 (15:54→21:14)
[2025-03-11] VITALS (10 sets, daily range): BP systolic 99–105; BP diastolic 60–71; PULSE 65–95; RESP 16–26; TEMP 36.1–37.2; O2SAT 91–96
[2025-03-11] MEDS: guaiFENesin SYRUP 200 MG/10 ML UDC PO (05:09)
[2025-03-11] MEDS: ALBUTEROL/IPRATROPIUM (Duoneb) RT SOL 3 ML NEBU INH ×3 (06:13→22:33)
[2025-03-11 06:41] LABS: Anion Gap 8 (7-16); BUN/Creatinine Ratio 12 Ratio (12-20); Blood Urea Nitrogen 17 mg/dL (9-23); Calcium 9.5 mg/dL (8.3-10.6); Calcium (Corrected) 9.5 mg/dL (8.5-10.1); Carbon Dioxide 24.9 mMol/L (20.0-31.0); Chloride 107 mMol/L (98-107); Creatinine (Component) 1.4 mg/dL (0.6-1.3); Estimated Creatinine Clearance 48.5 mL/min (>60); Glucose 122 mg/dL (74-106); Osmolality,Calculated 281 (275-295); Phosphorous 5.4 mg/dL (2.4-5.1); Potassium 3.8 mMol/L (3.4-5.1); Procalcitonin 0.11 ng/ml (0.0-0.49); Sodium 140 mMol/L (136-145); eGFR 45 See Note
[2025-03-11] MEDS: FLUCONAZOLE 100 MG TABLET 800 MG PO (08:07)
[2025-03-11] MEDS: ENOXAPARIN SOD INJ 40 MG/0.4 ML SYRINGE SC (08:08)
--- NOTE | 2025-03-11 10:47 | XR_ITS ---
Examination: AP chest single view Technique one AP portable upright chest single view Exam date and time: March 11, 2025 1059 hours INDICATIONS: Shortness of breath hypoxia today FINDINGS: Normal heart size Suspicious for early pneumonia left base No pulmonary edema Intact osseous structures IMPRESSION: Suspicious for early pneumonia left base
--- NOTE | 2025-03-11 14:05 | ESPR_ITS ---
<Statement entered by Jason Gomes MD - 03/16/25 13:40> I reviewed above note and agree with findings and plans. I have also personally examined the patient with medicine team and went over assessment and plan with medical team including internal auditor and resident physician. <Statement entered by Lizandro Gilmore MD - 03/13/25 07:07> Senior Resident Attestation: I supervised/discussed management plan with internal auditor physician Dr. Griffith, and was involved in the care of this patient. I personally saw and examined the patient and discussed the assessment and plan with the entire medicine team, including my attending. I agree with the assessment and plan as documented. Patient continues on high flow oxygen and was switched on PO Fluconazole. Patient's care was discussed with attending physician, Dr. Gomes. Lizandro Gilmore MD PGY-2. Documentation for date of: 03/11/25 Subjective Subjective Interval history: Patient is seen and examined at bedside No acute overnight events. Still complaining of shortness of breath, cough with expectoration Patient is still on high flow oxygen, 25 L/min, 50% FiO2 On physical examination, bilateral breath sounds are heard with no wheezing or crackles Renal functions showed creatinine 1.4. Encouraged intake of plenty of oral fluids Will continue fluconazole 800 Mg p.o. daily Exam Vital Signs Temp Pulse Resp BP Pulse Ox O2 Del Method O2 Flow Rate 98.4 F 78 26 H 104/66 95 High Flow Nasal Cannula 30 03/11/25 12:00 03/11/25 12:00 03/11/25 12:00 03/11/25 12:00 03/11/25 12:00 03/11/25 12:00 03/11/25 12:00 FiO2 50 03/11/25 12:00 Narrative Exam General: Awake. On high flow oxygen, 60% FiO2, 30 L/min HEENT: Normocephalic, atraumatic, mucous membranes moist. Heart: Regular rate and rhythm, no murmurs. Lungs: Bilateral bronchial breath sounds with crackles on left side Abdomen: Soft, nondistended, nontender, positive bowel sounds. ?No guarding or rebound tenderness. Neurologic: Alert and oriented x3, no gross neurological deficit, and patient able to move all 4 extremities. Extremities: No edema. Skin: No rash or ecchymoses. Objective Labs 03/10/25 13:55 03/11/25 05:40 Labs: Laboratory Results - last 24 hr 03/05/25 03/10/25 03/11/25 11:00 13:55 05:40 WBC 8.4 RBC 3.97 L Hgb 11.9 L Hct 34.8 L MCV 88 MCH 30.0 MCHC 34.2 RDW Std Deviation 40.2 Plt Count 423 Neut % (Auto) 73 Lymph % (Auto) 16 [place] % (Auto) 8 Eos % (Auto) 1 Baso % (Auto) 0 Neut # (Auto) 6.1 Lymph # (Auto) 1.3 [place] # (Auto) 0.7 Eos # (Auto) 0.1 Baso # (Auto) 0.0 Immature Gran # (Auto) 0.09 H Absolute Nucleated RBC 0.00 Immature Gran % 1 H Nucleated RBC % 0 Sodium 140 Potassium 3.8 Chloride 107 Carbon Dioxide 24.9 Anion Gap 8 BUN 17 Creatinine 1.4 H Estim Creat Clear Calc 48.5 L eGFR 45 L BUN/Creatinine Ratio 12 Glucose 122 H Calculated Osmolality 281 Lactic Acid 1.6 Calcium 9.5 Corrected Calcium 9.5 Phosphorus 5.4 H Albumin 4.0 Procalcitonin 0.11 TB Test (QFT) See Sep Rpt ABG Interpretation ABG results: 03/01/25 03/02/25 17:22 09:30 ABG pH 7.39 7.47 H ABG pCO2 46 39 ABG pO2 37 L* 122 H D ABG HCO3 28 H 28 H ABG O2 Saturation 68 L 100 H ABG Base Excess 3 4 H Quality Measures Quality Measures none Assessment & Plan Assessment Current Active Medications: Generic Name Dose Route Start Last Admin Trade Name Freq PRN Reason Stop Dose Admin Acetaminophen 650 mg 03/06/25 15:44 03/10/25 12:10 Acetaminophen 325 Mg Tablet PO 03/31/25 16:25 650 mg Q6H PRN Administration Fever >100.3, mild pain 1-3 Albuterol/Ipratropium 3 ml 03/03/25 16:45 03/11/25 14:04 Albuterol/Ipratropium (Duoneb) Rt Oriana 3 Ml Nebu INH 04/02/25 16:44 3 ml Q8HRRT MATEO Administration Docusate Sodium 100 mg 03/01/25 16:26 Docusate Sod 100 Mg Capsule PO 03/31/25 16:25 QDAY PRN CONSTIPATION Protocol Enoxaparin Sodium 40 mg 03/02/25 09:00 03/11/25 08:08 Enoxaparin Sod Inj 40 Mg/0.4 Ml Syringe SC 03/16/25 08:59 40 mg QDAY MATEO Administration Fluconazole 800 mg 03/11/25 09:00 03/11/25 08:07 Fluconazole 100 Mg Tablet PO 03/18/25 08:59 800 mg QDAY MATEO Administration Ondansetron HCl 4 mg 03/01/25 16:26 Ondansetron Inj 2 Mg/Ml Inj 2 Ml IV 03/31/25 16:25 Q6H PRN NAUSEA OR VOMITING Protocol Promethazine HCl/Dextromethorphan 10 ml 03/11/25 14:00 Promethazine/Dm Syrup 5 Ml Dose PO 04/06/25 15:29 TID MATEO Protocol Sodium Chloride 3 ml 03/01/25 13:10 Sodium Chloride Rt Oriana 0.9% 3 Ml Nebu INH 03/31/25 13:09 PRN PRN SOLN Plan 55-year-old female with significant past medical history of diabetes mellitus on metformin presented to the hospital with chief complaints of fever, shortness of breath and cough since 4 days and admitted for acute hypoxic respiratory failure secondary to bilateral pneumonia due to coccidoides # Acute kidney injury Secondary to amphotericin B - Baseline creatinine at the time of admission is 0.7 - As of 03/10/2025, creatinine is 1.5, but patient is having adequate renal output --> 03/11, 1.4 Plan - Patient was given 500 mL bolus on 03/10/2025 and started on IV fluids, NS X1@80ml/ hr - Strict input and output - Encouraged patient to take plenty of oral fluids - Will continue to monitor renal functions - Will avoid nephrotoxic medications and renally dose medications - If renal functions does not improve, will consult nephrology if needed # Acute hypoxic respiratory failure # 2/2 Bilateral pneumonia due to coccidoides - presented to the hospital with chief complaints of fever, shortness of breath and cough with expectoration since 4 days - Patient saw primary care provider in [facility] and received antibiotics, amoxicillin and clavulanate - As her symptoms got worsened despite using antibiotics patient presented to the hospital - Vitals at the time of admission showed SpO2 85% with room air, pulse rate 105 bpm - Chest x-ray showed bilateral infiltrates - CTA chest showed bilateral miliary pattern infiltrates and negative for pulmonary emboli - Coccidioides IgM antibodies negative twice on 03/01, 03/03 and positive on 03/05/2025, reflex sent to [facility] for confirmation, Beta D glucan- 75 - Influenza, COVID testing negative - TB QuantiFERON test was sent, came back indeterminate, repeat sample was sent - Blood cultures came back negative - Sputum sent for Gram stain and cultures showed GPC, GNR, YEAST, epithelial cells - likely contaminant - ECHO showed - Normal LV size and function. Estimated EF 55-60%. Grade I diastolic dysfunction. RV is normal in size and systolic function. Mild TR. - AFB Negative x 3 Plan - Started on ceftriaxone and azithromycin [03/01-03/03], ceftriaxone is changed to cefuroxime(03/03 - 03/08) as per Dr Barrientos's recommendations - Fluconazole 400mg IV daily [03/05-03/07] ---> changed to Amphotericin B per ID from 03/08/2025- 03/09 - Amphotericin B is stopped as of 03/10/2025 in view of acute kidney injury and patient is restarted on fluconazole 800 Mg daily [03/10- - Nebulizations every 8 hourly - Chest physiotherapy and Incentive spirometry - Oxygen, titration as needed - Promethazine scheduled every 8th hrly. - Dr Barrientos is consulted and will appreciate his recommendations # History of diabetes mellitus - Patient is using metformin 500 Mg twice daily at home - HbA1c is ordered, 6.1 - Her blood glucose levels are within normal limits, will hold insulin for now and will continue oral hypoglycemic medications on outpatient basis. Hospital Maintenance: Dispo: Med tele DVT ppx: Lovenox GI ppx: Protonix Diet: Carbohydrate consistent IV lines: Peripheral Code status: Full code Patient plan of care was discussed with the attending physician, Dr. Gomes and senior resident Dr. Deirdre Griffith, PGY1
[2025-03-11] MEDS: guaiFENesin/DM 10 ML UDC PO ×2 (14:47→21:03)
[2025-03-11] MEDS: PROMETHAZINE HCL SYRUP 6.25 MG/5 ML UDC PO ×2 (14:51→21:03)
[2025-03-12] VITALS (13 sets, daily range): BP systolic 95–106; BP diastolic 60–68; PULSE 67–97; RESP 17–28; TEMP 35.9–36.4; O2SAT 90–96
[2025-03-12] MEDS: PROMETHAZINE HCL SYRUP 6.25 MG/5 ML UDC PO ×3 (05:17→21:27)
[2025-03-12] MEDS: guaiFENesin/DM 10 ML UDC PO ×3 (05:18→21:27)
[2025-03-12 06:53] LABS: Albumin, Serum 3.9 gm/dL (3.5-5.0); Anion Gap 10 (7-16); BUN/Creatinine Ratio 12 Ratio (12-20); Blood Urea Nitrogen 17 mg/dL (9-23); Calcium 9.3 mg/dL (8.3-10.6); Calcium (Corrected) 9.4 mg/dL (8.5-10.1); Carbon Dioxide 25.4 mMol/L (20.0-31.0); Chloride 105 mMol/L (98-107); Creatinine (Component) 1.4 mg/dL (0.6-1.3); Estimated Creatinine Clearance 48.5 mL/min (>60); Glucose 122 mg/dL (74-106); Osmolality,Calculated 281 (275-295); Phosphorous 5.2 mg/dL (2.4-5.1); Potassium 3.6 mMol/L (3.4-5.1); Sodium 140 mMol/L (136-145); eGFR 45 See Note
[2025-03-12] MEDS: ENOXAPARIN SOD INJ 40 MG/0.4 ML SYRINGE SC (08:23)
[2025-03-12] MEDS: FLUCONAZOLE 100 MG TABLET 800 MG PO (08:23)
[2025-03-12] MEDS: ALBUTEROL/IPRATROPIUM (Duoneb) RT SOL 3 ML NEBU INH ×3 (08:32→23:33)
--- NOTE | 2025-03-12 09:25 | ESPR_ITS ---
Subjective Subjective Interval history: gita noted so is on high dose flucon instead. fiO2 lower. I called [facility] and specimen just arrived, so no data till saturday Exam Vital Signs Temp Pulse Resp BP Pulse Ox O2 Del Method O2 Flow Rate 97.5 F 84 19 95/66 95 High Flow Nasal Cannula 15 03/12/25 08:00 03/12/25 08:34 03/12/25 08:34 03/12/25 08:00 03/12/25 08:34 03/12/25 08:00 03/12/25 08:34 FiO2 35 03/12/25 08:34 Objective - Internal Medicine Labs 03/10/25 13:55 03/12/25 04:54 Labs: Laboratory Results - last 24 hr 03/12/25 04:54 Sodium 140 Potassium 3.6 Chloride 105 Carbon Dioxide 25.4 Anion Gap 10 BUN 17 Creatinine 1.4 H Estim Creat Clear Calc 48.5 L eGFR 45 L BUN/Creatinine Ratio 12 Glucose 122 H Calculated Osmolality 281 Calcium 9.3 Corrected Calcium 9.4 Phosphorus 5.2 H Albumin 3.9 ABG Interpretation ABG results: 03/01/25 03/02/25 17:22 09:30 ABG pH 7.39 7.47 H ABG pCO2 46 39 ABG pO2 37 L* 122 H D ABG HCO3 28 H 28 H ABG O2 Saturation 68 L 100 H ABG Base Excess 3 4 H Assessment & Plan A&P Narrative atypical pulm process. af's neg so far hypoxia on hig flow O2 dm, a1c <<7 noted. well controlled a1c 6.1 on 03/02 bnp ok. covid neg. rsv neg, procal neg.cocci neg then pos. looks and sounds like cocci confirmation at [facility] pending. may have it by saturday, agree with no isolation will check in again Saturday. if cocci confirmed and pt worse, ampho may still be the way to go. even if some toxicity is noted. creat not that much higher than before, 1.2-1.5 noted. now 1.4 will see saturday Time Spent With Patient Time: Total time spent is greater than 50% in coordination of care (as documented) at patient's floor/unit and/or counseling patient:
[2025-03-12] MEDS: POTASSIUM CHLORIDE 10% 20 MEQ/15 ML UDC 40 MEQ GT (09:30)
--- NOTE | 2025-03-12 10:17 | ESPR_ITS ---
<Statement entered by Jason Gomes MD - 03/17/25 09:29> I reviewed above note and agree with findings and plans. I have also personally examined the patient with medicine team and went over assessment and plan with medical team including paralegal internship and resident physician. Documentation for date of: 03/12/25 Subjective Subjective Interval history: No overnight events. Patient doing much better today, and was sitting at bedside this morning. Patient in good spirits and states she would like to go home soon. Still on high flow will continue to wean off oxygen as able. Exam Vital Signs Temp Pulse Resp BP Pulse Ox O2 Del Method O2 Flow Rate 97.5 F 84 19 95/66 95 High Flow Nasal Cannula 15 03/12/25 08:00 03/12/25 08:34 03/12/25 08:34 03/12/25 08:00 03/12/25 08:34 03/12/25 08:00 03/12/25 08:34 FiO2 35 03/12/25 08:34 Narrative Exam General: Awake. On high flow oxygen. Heart: Regular rate and rhythm, no murmurs. Lungs: Bilateral rales lower lobes. Abdomen: Soft, nondistended, nontender, positive bowel sounds. ?No guarding or rebound tenderness. Neurologic: Alert and oriented x3, no gross neurological deficit, and patient able to move all 4 extremities. Extremities: No edema. Skin: No rash or ecchymoses. Objective Labs 03/10/25 13:55 03/12/25 04:54 Labs: Laboratory Results - last 24 hr 03/12/25 04:54 Sodium 140 Potassium 3.6 Chloride 105 Carbon Dioxide 25.4 Anion Gap 10 BUN 17 Creatinine 1.4 H Estim Creat Clear Calc 48.5 L eGFR 45 L BUN/Creatinine Ratio 12 Glucose 122 H Calculated Osmolality 281 Calcium 9.3 Corrected Calcium 9.4 Phosphorus 5.2 H Albumin 3.9 ABG Interpretation ABG results: 03/01/25 03/02/25 17:22 09:30 ABG pH 7.39 7.47 H ABG pCO2 46 39 ABG pO2 37 L* 122 H D ABG HCO3 28 H 28 H ABG O2 Saturation 68 L 100 H ABG Base Excess 3 4 H Quality Measures Quality Measures none Assessment & Plan Assessment Current Active Medications: Generic Name Dose Route Start Last Admin Trade Name Freq PRN Reason Stop Dose Admin Acetaminophen 650 mg 03/06/25 15:44 03/10/25 12:10 Acetaminophen 325 Mg Tablet PO 03/31/25 16:25 650 mg Q6H PRN Administration Fever >100.3, mild pain 1-3 Albuterol/Ipratropium 3 ml 03/03/25 16:45 03/12/25 08:32 Albuterol/Ipratropium (Duoneb) Rt Oriana 3 Ml Nebu INH 04/02/25 16:44 3 ml Q8HRRT MATEO Administration Docusate Sodium 100 mg 03/01/25 16:26 Docusate Sod 100 Mg Capsule PO 03/31/25 16:25 QDAY PRN CONSTIPATION Protocol Enoxaparin Sodium 40 mg 03/02/25 09:00 03/12/25 08:23 Enoxaparin Sod Inj 40 Mg/0.4 Ml Syringe SC 03/16/25 08:59 40 mg QDAY MATEO Administration Fluconazole 800 mg 03/11/25 09:00 03/12/25 08:23 Fluconazole 100 Mg Tablet PO 03/18/25 08:59 800 mg QDAY MATEO Administration Guaifenesin/Dextromethorphan 10 ml 03/11/25 14:15 03/12/25 05:18 Guaifenesin/Dm 10 Ml Udc PO 04/10/25 14:14 10 ml TID MATEO Administration Ondansetron HCl 4 mg 03/01/25 16:26 Ondansetron Inj 2 Mg/Ml Inj 2 Ml IV 03/31/25 16:25 Q6H PRN NAUSEA OR VOMITING Protocol Promethazine HCl 6.25 mg 03/11/25 14:15 03/12/25 05:17 Promethazine Hcl Syrup 6.25 Mg/5 Ml Udc PO 04/10/25 14:14 6.25 mg TID MATEO Administration Sodium Chloride 3 ml 03/01/25 13:10 Sodium Chloride Rt Oriana 0.9% 3 Ml Nebu INH 03/31/25 13:09 PRN PRN SOLN Plan 55-year-old female with significant past medical history of diabetes mellitus on metformin presented to the hospital with chief complaints of fever, shortness of breath and cough since 4 days and admitted for acute hypoxic respiratory failure secondary to bilateral pneumonia due to coccidoides # Acute hypoxic respiratory failure # 2/2 Bilateral pneumonia due to coccidoides - presented to the hospital with chief complaints of fever, shortness of breath and cough with expectoration since 4 days - Patient saw primary care provider in [facility] and received antibiotics, amoxicillin and clavulanate - As her symptoms got worsened despite using antibiotics patient presented to the hospital - Vitals at the time of admission showed SpO2 85% with room air, pulse rate 105 bpm - Chest x-ray showed bilateral infiltrates - CTA chest showed bilateral miliary pattern infiltrates and negative for pulmonary emboli - Coccidioides IgM antibodies negative twice on 03/01, 03/03 and positive on 03/05/2025, reflex sent to [facility] for confirmation, Beta D glucan- 75 - Influenza, COVID testing negative - TB QuantiFERON test was sent, came back indeterminate, repeat sample was sent - Blood cultures came back negative - Sputum sent for Gram stain and cultures showed GPC, GNR, YEAST, epithelial cells - likely contaminant - ECHO showed - Normal LV size and function. Estimated EF 55-60%. Grade I diastolic dysfunction. RV is normal in size and systolic function. Mild TR. - AFB Negative x 3 Plan - On fluconazole 800mg IV daily - Nebulizations every 8 hourly - Chest physiotherapy and Incentive spirometry - Oxygen, titration as needed - Promethazine scheduled every 8 hrs. - Dr Barrientos is consulted and will appreciate his recommendations # Acute kidney injury-Improving Secondary to amphotericin B - Baseline creatinine at the time of admission is 0.7 Plan - Strict input and output - Encouraged patient to take plenty of oral fluids - Will continue to monitor renal functions - Will avoid nephrotoxic medications and renally dose medications - If renal functions does not improve, will consult nephrology if needed # Hypokalemia - Will continue to monitor and replete # History of diabetes mellitus - Patient is using metformin 500 Mg twice daily at home - HbA1c is ordered, 6.1 - Her blood glucose levels are within normal limits, will hold insulin for now and will continue oral hypoglycemic medications on outpatient basis. Hospital Maintenance: Dispo: Med tele DVT ppx: Lovenox GI ppx: Protonix Diet: Carbohydrate consistent IV lines: Peripheral Code status: Full code Plan of care discussed with attending physician Dr. Eliseo Jean MD PGY3
--- NOTE | 2025-03-12 11:39 | PC.SS ---
SS follow up note; Patient is currently on high flow. Once medically cleared patient will return back home.
[2025-03-13] VITALS (13 sets, daily range): BP systolic 95–110; BP diastolic 64–72; PULSE 78–113; RESP 17–29; TEMP 35.9–36.1; O2SAT 90–96
[2025-03-13] MEDS: PROMETHAZINE HCL SYRUP 6.25 MG/5 ML UDC PO ×3 (05:08→21:28)
[2025-03-13] MEDS: guaiFENesin/DM 10 ML UDC PO ×3 (05:08→21:28)
[2025-03-13] MEDS: ALBUTEROL/IPRATROPIUM (Duoneb) RT SOL 3 ML NEBU INH ×3 (07:39→22:15)
[2025-03-13 08:19] LABS: Alanine Aminotransferase 26 U/L (10-49); Albumin, Serum 4.1 gm/dL (3.5-5.0); Albumin/Globulin Ratio 1.6 (1.2-2.2); Alkaline Phosphatase 104 U/L (46-116); Anion Gap 11 (7-16); Aspartate Amino Transferase 24 U/L (0-34); BUN/Creatinine Ratio 14 Ratio (12-20); Bilirubin,Total 0.4 mg/dL (0.3-1.2); Blood Urea Nitrogen 19 mg/dL (9-23); Calcium 9.6 mg/dL (8.3-10.6); Calcium (Corrected) 9.6 mg/dL (8.5-10.1); Carbon Dioxide 23.5 mMol/L (20.0-31.0); Chloride 108 mMol/L (98-107); Creatinine (Component) 1.4 mg/dL (0.6-1.3); Estimated Creatinine Clearance 48.5 mL/min (>60); Globulin 2.6 gm/dL (2.3-3.5); Glucose 132 mg/dL (74-106); Osmolality,Calculated 287 (275-295); Potassium 4.1 mMol/L (3.4-5.1); Sodium 142 mMol/L (136-145); Total Protein 6.7 gm/dL (5.7-8.2); eGFR 45 See Note
[2025-03-13] MEDS: ENOXAPARIN SOD INJ 40 MG/0.4 ML SYRINGE SC (08:53)
[2025-03-13] MEDS: FLUCONAZOLE 100 MG TABLET 800 MG PO (08:53)
--- NOTE | 2025-03-13 14:38 | ESPR_ITS ---
<Statement entered by Jason Gomes MD - 03/17/25 09:32> I reviewed above note and agree with findings and plans. I have also personally examined the patient with medicine team and went over assessment and plan with medical team including business services intern and resident physician. <Statement entered by Lizandro Gilmore MD - 03/15/25 09:13> Senior Resident Attestation: I supervised/discussed management plan with business services intern physician Dr. Griffith, and was involved in the care of this patient. I personally saw and examined the patient and discussed the assessment and plan with the entire medicine team, including my attending. I agree with the assessment and plan as documented. Patient's care was discussed with attending physician, Dr. Gomes. Lizandro Gilmore MD PGY-2. Documentation for date of: 03/13/25 Subjective Subjective Interval history: Patient is seen and examined t the bedside No acute overnight events. Denies any other complaints Transitioned to oxymask from High flow nasal cannula and patient is tolerating it well Vitals are stable. Renal functions still remained the same Will continue fluconazole and wean her off to nasal cannula Exam Vital Signs Temp Pulse Resp BP Pulse Ox O2 Del Method O2 Flow Rate 96.9 F 82 29 H 99/70 92 L High Flow Nasal Cannula 8 03/13/25 11:55 03/13/25 11:55 03/13/25 11:55 03/13/25 11:55 03/13/25 11:55 03/13/25 11:55 03/13/25 11:55 FiO2 45 03/13/25 07:58 Narrative Exam General: Awake. On oxymask, 9l HEENT: Normocephalic, atraumatic, mucous membranes moist. Heart: Regular rate and rhythm, no murmurs. Lungs: Bilateral bronchial breath sounds with crackles on left side Abdomen: Soft, nondistended, nontender, positive bowel sounds. ?No guarding or rebound tenderness. Neurologic: Alert and oriented x3, no gross neurological deficit, and patient able to move all 4 extremities. Extremities: No edema. Skin: No rash or ecchymoses. Objective Labs 03/10/25 13:55 03/13/25 05:30 Labs: Laboratory Results - last 24 hr 03/13/25 05:30 Sodium 142 Potassium 4.1 D Chloride 108 H Carbon Dioxide 23.5 Anion Gap 11 BUN 19 Creatinine 1.4 H Estim Creat Clear Calc 48.5 L eGFR 45 L BUN/Creatinine Ratio 14 Glucose 132 H Calculated Osmolality 287 Calcium 9.6 Corrected Calcium 9.6 Magnesium 2.0 Total Bilirubin 0.4 AST 24 ALT 26 Alkaline Phosphatase 104 Total Protein 6.7 Albumin 4.1 Globulin 2.6 Albumin/Globulin Ratio 1.6 ABG Interpretation ABG results: 03/01/25 03/02/25 17:22 09:30 ABG pH 7.39 7.47 H ABG pCO2 46 39 ABG pO2 37 L* 122 H D ABG HCO3 28 H 28 H ABG O2 Saturation 68 L 100 H ABG Base Excess 3 4 H Quality Measures Quality Measures none Assessment & Plan Assessment Current Active Medications: Generic Name Dose Route Start Last Admin Trade Name Freq PRN Reason Stop Dose Admin Acetaminophen 650 mg 03/06/25 15:44 03/10/25 12:10 Acetaminophen 325 Mg Tablet PO 03/31/25 16:25 650 mg Q6H PRN Administration Fever >100.3, mild pain 1-3 Albuterol/Ipratropium 3 ml 03/03/25 16:45 03/13/25 07:39 Albuterol/Ipratropium (Duoneb) Rt Oriana 3 Ml Nebu INH 04/02/25 16:44 3 ml Q8HRRT MATEO Administration Docusate Sodium 100 mg 03/01/25 16:26 Docusate Sod 100 Mg Capsule PO 03/31/25 16:25 QDAY PRN CONSTIPATION Protocol Enoxaparin Sodium 40 mg 03/02/25 09:00 03/13/25 08:53 Enoxaparin Sod Inj 40 Mg/0.4 Ml Syringe SC 03/16/25 08:59 40 mg QDAY MATEO Administration Fluconazole 800 mg 03/11/25 09:00 03/13/25 08:53 Fluconazole 100 Mg Tablet PO 03/18/25 08:59 800 mg QDAY MATEO Administration Guaifenesin/Dextromethorphan 10 ml 03/11/25 14:15 03/13/25 14:03 Guaifenesin/Dm 10 Ml Udc PO 04/10/25 14:14 10 ml TID MATEO Administration Ondansetron HCl 4 mg 03/01/25 16:26 Ondansetron Inj 2 Mg/Ml Inj 2 Ml IV 03/31/25 16:25 Q6H PRN NAUSEA OR VOMITING Protocol Promethazine HCl 6.25 mg 03/11/25 14:15 03/13/25 14:03 Promethazine Hcl Syrup 6.25 Mg/5 Ml Udc PO 04/10/25 14:14 6.25 mg TID MATEO Administration Sodium Chloride 3 ml 03/01/25 13:10 Sodium Chloride Rt Oriana 0.9% 3 Ml Nebu INH 03/31/25 13:09 PRN PRN SOLN Plan 55-year-old female with significant past medical history of diabetes mellitus on metformin presented to the hospital with chief complaints of fever, shortness of breath and cough since 4 days and admitted for acute hypoxic respiratory failure secondary to bilateral pneumonia due to coccidoides # Acute hypoxic respiratory failure # 2/2 Bilateral pneumonia due to coccidoides - presented to the hospital with chief complaints of fever, shortness of breath and cough with expectoration since 4 days - Patient saw primary care provider in [facility] and received antibiotics, amoxicillin and clavulanate - As her symptoms got worsened despite using antibiotics patient presented to the hospital - Vitals at the time of admission showed SpO2 85% with room air, pulse rate 105 bpm - Chest x-ray showed bilateral infiltrates - CTA chest showed bilateral miliary pattern infiltrates and negative for pulmonary emboli - Coccidioides IgM antibodies negative twice on 03/01, 03/03 and positive on 03/05/2025, reflex sent to [facility] for confirmation, Beta D glucan- 75 - Influenza, COVID testing negative - TB QuantiFERON test was sent, came back indeterminate, repeat sample was sent - Blood cultures came back negative - Sputum sent for Gram stain and cultures showed GPC, GNR, YEAST, epithelial cells - likely contaminant - ECHO showed - Normal LV size and function. Estimated EF 55-60%. Grade I diastolic dysfunction. RV is normal in size and systolic function. Mild TR. - AFB Negative x 3 Plan - Amphotericin B is stopped as of 03/10/2025 in view of acute kidney injury and patient is restarted on fluconazole 800 Mg daily [03/10- - Nebulizations every 8 hourly - Chest physiotherapy and Incentive spirometry - Oxygen, titration as needed - Promethazine scheduled every 8th hrly. - Dr Barrientos is consulted and will appreciate his recommendations # Acute kidney injury Secondary to amphotericin B - Baseline creatinine at the time of admission is 0.7 - As of 03/10/2025, creatinine is 1.5, but patient is having adequate renal output --> 03/13, 1.4 Plan - Patient was given 500 mL bolus on 03/10/2025 and started on IV fluids, NS X1@80ml/ hr - Strict input and output - Encouraged patient to take plenty of oral fluids - Will continue to monitor renal functions - Will avoid nephrotoxic medications and renally dose medications - If renal functions does not improve, will consult nephrology if needed # History of diabetes mellitus - Patient is using metformin 500 Mg twice daily at home - HbA1c is ordered, 6.1 - Her blood glucose levels are within normal limits, will hold insulin for now and will continue oral hypoglycemic medications on outpatient basis. Hospital Maintenance: Dispo: Med tele DVT ppx: Lovenox GI ppx: Protonix Diet: Carbohydrate consistent IV lines: Peripheral Code status: Full code Patient plan of care was discussed with the attending physician, Dr. Gomes and senior resident Dr. Deirder Griffith, PGY1
[2025-03-14] VITALS (10 sets, daily range): BP systolic 97–111; BP diastolic 65–76; PULSE 73–103; RESP 17–28; TEMP 36.1–36.3; O2SAT 92–96
[2025-03-14] MEDS: guaiFENesin/DM 10 ML UDC PO ×2 (05:15→21:13)
[2025-03-14] MEDS: PROMETHAZINE HCL SYRUP 6.25 MG/5 ML UDC PO (05:15)
[2025-03-14] MEDS: ALBUTEROL/IPRATROPIUM (Duoneb) RT SOL 3 ML NEBU INH ×2 (06:55→23:08)
--- NOTE | 2025-03-14 07:39 | ESPR_ITS ---
<Statement entered by Jason Gomes MD - 03/17/25 12:11> I reviewed above note and agree with findings and plans. I have also personally examined the patient with medicine team and went over assessment and plan with medical team including consultant intern and resident physician. Documentation for date of: 03/14/25 Subjective Subjective Interval history: No overnight events. Patient seen and assessed at bedside this morning. Patient on OxyMask saturating well on 6 L. Patient states to be feeling well and is anxious to go home. Creatinine improving as well, will continue with current dosage of fluconazole and continue assessing liver enzymes. Exam Vital Signs Temp Pulse Resp BP Pulse Ox O2 Del Method O2 Flow Rate 97.4 F 83 20 97/71 92 L Oxy Mask 6 03/14/25 04:00 03/14/25 06:55 03/14/25 06:55 03/14/25 04:00 03/14/25 06:55 03/14/25 04:00 03/14/25 06:55 FiO2 45 03/13/25 16:00 Narrative Exam General: Awake. On oxy mask. Heart: Regular rate and rhythm, no murmurs. Rubs, or gallops. Lungs: Chest clear to auscultation bilaterally anteriorly. Abdomen: Soft, nondistended, nontender, positive bowel sounds. ?No guarding or rebound tenderness. Neurologic: Alert and oriented x3, no gross neurological deficit, and patient able to move all 4 extremities. Extremities: No edema. Skin: No rash or ecchymoses. Objective Labs 03/14/25 08:00 03/14/25 08:00 Labs: Laboratory Results - last 24 hr 03/13/25 05:30 Sodium 142 Potassium 4.1 D Chloride 108 H Carbon Dioxide 23.5 Anion Gap 11 BUN 19 Creatinine 1.4 H Estim Creat Clear Calc 48.5 L eGFR 45 L BUN/Creatinine Ratio 14 Glucose 132 H Calculated Osmolality 287 Calcium 9.6 Corrected Calcium 9.6 Total Bilirubin 0.4 AST 24 ALT 26 Alkaline Phosphatase 104 Total Protein 6.7 Albumin 4.1 Globulin 2.6 Albumin/Globulin Ratio 1.6 ABG Interpretation ABG results: 03/01/25 03/02/25 17:22 09:30 ABG pH 7.39 7.47 H ABG pCO2 46 39 ABG pO2 37 L* 122 H D ABG HCO3 28 H 28 H ABG O2 Saturation 68 L 100 H ABG Base Excess 3 4 H Quality Measures Quality Measures none Assessment & Plan Assessment Current Active Medications: Generic Name Dose Route Start Last Admin Trade Name Freq PRN Reason Stop Dose Admin Acetaminophen 650 mg 03/06/25 15:44 03/10/25 12:10 Acetaminophen 325 Mg Tablet PO 03/31/25 16:25 650 mg Q6H PRN Administration Fever >100.3, mild pain 1-3 Albuterol/Ipratropium 3 ml 03/03/25 16:45 03/14/25 06:55 Albuterol/Ipratropium (Duoneb) Rt Oriana 3 Ml Nebu INH 04/02/25 16:44 3 ml Q8HRRT MATEO Administration Docusate Sodium 100 mg 03/01/25 16:26 Docusate Sod 100 Mg Capsule PO 03/31/25 16:25 QDAY PRN CONSTIPATION Protocol Enoxaparin Sodium 40 mg 03/02/25 09:00 03/13/25 08:53 Enoxaparin Sod Inj 40 Mg/0.4 Ml Syringe SC 03/16/25 08:59 40 mg QDAY MATEO Administration Fluconazole 800 mg 03/11/25 09:00 03/13/25 08:53 Fluconazole 100 Mg Tablet PO 03/18/25 08:59 800 mg QDAY MATEO Administration Guaifenesin/Dextromethorphan 10 ml 03/11/25 14:15 03/14/25 05:15 Guaifenesin/Dm 10 Ml Udc PO 04/10/25 14:14 10 ml TID MATEO Administration Ondansetron HCl 4 mg 03/01/25 16:26 Ondansetron Inj 2 Mg/Ml Inj 2 Ml IV 03/31/25 16:25 Q6H PRN NAUSEA OR VOMITING Protocol Promethazine HCl 6.25 mg 03/11/25 14:15 03/14/25 05:15 Promethazine Hcl Syrup 6.25 Mg/5 Ml Udc PO 04/10/25 14:14 6.25 mg TID MATEO Administration Sodium Chloride 3 ml 03/01/25 13:10 Sodium Chloride Rt Oriana 0.9% 3 Ml Nebu INH 03/31/25 13:09 PRN PRN SOLN Plan 55-year-old female with significant past medical history of diabetes mellitus on metformin presented to the hospital with chief complaints of fever, shortness of breath and cough since 4 days and admitted for acute hypoxic respiratory failure secondary to bilateral pneumonia due to coccidoides # Acute hypoxic respiratory failure?improving # 2/2 Bilateral pneumonia due to coccidoides - presented to the hospital with chief complaints of fever, shortness of breath and cough with expectoration since 4 days - Patient saw primary care provider in [facility] and received antibiotics, amoxicillin and clavulanate - As her symptoms got worsened despite using antibiotics patient presented to the hospital - Vitals at the time of admission showed SpO2 85% with room air, pulse rate 105 bpm - Chest x-ray showed bilateral infiltrates - CTA chest showed bilateral miliary pattern infiltrates and negative for pulmonary emboli - Coccidioides IgM antibodies negative twice on 03/01, 03/03 and positive on 03/05/2025, reflex sent to [facility] for confirmation, Beta D glucan- 75 - Influenza, COVID testing negative - TB QuantiFERON test was sent, came back indeterminate, repeat sample was sent - Blood cultures came back negative - Sputum sent for Gram stain and cultures showed GPC, GNR, YEAST, epithelial cells - likely contaminant - ECHO showed - Normal LV size and function. Estimated EF 55-60%. Grade I diastolic dysfunction. RV is normal in size and systolic function. Mild TR. - AFB Negative x 3 Plan - On fluconazole 800mg IV daily - Nebulizations every 8 hourly - Chest physiotherapy and Incentive spirometry - Oxygen, titration as needed - Promethazine scheduled every 8 hrs. - Dr Barrientos is consulted and will appreciate his recommendations # Acute kidney injury-Improving Secondary to amphotericin B - Baseline creatinine at the time of admission is 0.7 Plan - Strict input and output - Encouraged patient to take plenty of oral fluids - Will continue to monitor renal functions - Will avoid nephrotoxic medications and renally dose medications - If renal functions does not improve, will consult nephrology if needed # History of diabetes mellitus - Patient is using metformin 500 Mg twice daily at home - HbA1c is ordered, 6.1 - Her blood glucose levels are within normal limits, will hold insulin for now and will continue oral hypoglycemic medications on outpatient basis. # Hypokalemia?resolved . Hospital Maintenance: Dispo: Med tele DVT ppx: Lovenox GI ppx: Protonix Diet: Carbohydrate consistent IV lines: Peripheral Code status: Full code Plan of care discussed with attending physician Dr. Eliseo Jean MD PGY3
[2025-03-14 08:19] LABS: Basophils % (Auto) 1 % (0-2.5); Eosinophils # (Auto) 0.1 Thou/mm3 (0.0-0.5); Eosinophils % (Auto) 2 % (0-10); Hematocrit 35.7 % (36.0-46.0); Immature Granulocytes % (Auto) 1 % (0-0); Immature Granulocytes Auto 0.03 Thou/mm3 (0.00-0.00); Lymphocytes # (Auto) 1.4 Thou/mm3 (1.0-4.8); Lymphocytes % (Auto) 27 % (10-50); Mean Corpuscular HGB Conc 33.6 g/dl (31.0-37.0); Mean Corpuscular Hemoglobin 30.3 pg (25.0-35.0); Mean Corpuscular Volume 90 fL (80-100); Monocytes # (Auto) 0.7 Thou/mm3 (0.0-0.8); Monocytes % (Auto) 13 % (0-12); Neutrophils # (Auto) 2.8 Thou/mm3 (1.8-7.7); Neutrophils % (Auto) 56 % (37-80); Nucleated Red Blood Cell % 0 /100 WBC (0); Platelet Count 414 Thou/mm3 (140-440); RDW Standard Deviation 42.7 fL (36.4-46.3); Red Blood Count 3.96 Miln/mm3 (4.00-5.20); White Blood Count 5.1 Thou/mm3 (3.6-11.0)
[2025-03-14] MEDS: ENOXAPARIN SOD INJ 40 MG/0.4 ML SYRINGE SC (08:38)
[2025-03-14] MEDS: FLUCONAZOLE 100 MG TABLET 800 MG PO (08:38)
[2025-03-14 08:49] LABS: Alanine Aminotransferase 33 U/L (10-49); Albumin, Serum 4.3 gm/dL (3.5-5.0); Albumin/Globulin Ratio 1.7 (1.2-2.2); Alkaline Phosphatase 106 U/L (46-116); Anion Gap 8 (7-16); Aspartate Amino Transferase 23 U/L (0-34); BUN/Creatinine Ratio 13 Ratio (12-20); Bilirubin,Total 0.5 mg/dL (0.3-1.2); Blood Urea Nitrogen 17 mg/dL (9-23); Calcium 9.7 mg/dL (8.3-10.6); Calcium (Corrected) 9.7 mg/dL (8.5-10.1); Chloride 107 mMol/L (98-107); Creatinine (Component) 1.3 mg/dL (0.6-1.3); Estimated Creatinine Clearance 52.2 mL/min (>60); Globulin 2.5 gm/dL (2.3-3.5); Glucose 135 mg/dL (74-106); Osmolality,Calculated 286 (275-295); Sodium 142 mMol/L (136-145); Total Protein 6.8 gm/dL (5.7-8.2); eGFR 49 See Note
[2025-03-15] VITALS (9 sets, daily range): BP systolic 106–115; BP diastolic 73–80; PULSE 69–96; RESP 16–26; TEMP 36–36.2; O2SAT 93–99
[2025-03-15] MEDS: guaiFENesin/DM 10 ML UDC PO ×3 (05:26→21:01)
[2025-03-15 06:11] LABS: Alanine Aminotransferase 27 U/L (10-49); Albumin, Serum 4.2 gm/dL (3.5-5.0); Albumin/Globulin Ratio 1.6 (1.2-2.2); Alkaline Phosphatase 105 U/L (46-116); Anion Gap 9 (7-16); Aspartate Amino Transferase 14 U/L (0-34); BUN/Creatinine Ratio 15 Ratio (12-20); Bilirubin,Total 0.4 mg/dL (0.3-1.2); Blood Urea Nitrogen 18 mg/dL (9-23); Calcium 9.9 mg/dL (8.3-10.6); Calcium (Corrected) 9.9 mg/dL (8.5-10.1); Chloride 103 mMol/L (98-107); Creatinine (Component) 1.2 mg/dL (0.6-1.3); Estimated Creatinine Clearance 56.6 mL/min (>60); Globulin 2.7 gm/dL (2.3-3.5); Glucose 120 mg/dL (74-106); Osmolality,Calculated 278 (275-295); Potassium 3.7 mMol/L (3.4-5.1); Sodium 138 mMol/L (136-145); Total Protein 6.9 gm/dL (5.7-8.2); eGFR 54 See Note
[2025-03-15] MEDS: PROMETHAZINE HCL SYRUP 6.25 MG/5 ML UDC PO ×3 (06:42→21:01)
[2025-03-15] MEDS: ALBUTEROL/IPRATROPIUM (Duoneb) RT SOL 3 ML NEBU INH ×3 (08:03→22:36)
[2025-03-15] MEDS: FLUCONAZOLE 100 MG TABLET 800 MG PO (08:32)
[2025-03-15] MEDS: ENOXAPARIN SOD INJ 40 MG/0.4 ML SYRINGE SC (08:32)
--- NOTE | 2025-03-15 09:12 | PD.IDPROG ---
Subjective Subjective Interval history: called [facility]. serology still pending. should be out by end of work today. Exam Vital Signs Temp Pulse Resp BP Pulse Ox O2 Del Method O2 Flow Rate 96.8 F 84 21 H 115/79 96 Nasal Cannula 3 03/15/25 08:00 03/15/25 08:04 03/15/25 08:04 03/15/25 08:00 03/15/25 08:04 03/15/25 08:00 03/15/25 08:04 FiO2 45 03/14/25 16:00 Narrative Exam O2 weaned to nc. on high dose flucon. Objective - Internal Medicine Labs 03/14/25 08:00 03/15/25 04:58 Labs: Laboratory Results - last 24 hr 03/15/25 04:58 Sodium 138 Potassium 3.7 Chloride 103 Carbon Dioxide 26.0 Anion Gap 9 BUN 18 Creatinine 1.2 Estim Creat Clear Calc 56.6 L eGFR 54 L BUN/Creatinine Ratio 15 Glucose 120 H Calculated Osmolality 278 Calcium 9.9 Corrected Calcium 9.9 Total Bilirubin 0.4 AST 14 ALT 27 Alkaline Phosphatase 105 Total Protein 6.9 Albumin 4.2 Globulin 2.7 Albumin/Globulin Ratio 1.6 ABG Interpretation ABG results: 03/01/25 03/02/25 17:22 09:30 ABG pH 7.39 7.47 H ABG pCO2 46 39 ABG pO2 37 L* 122 H D ABG HCO3 28 H 28 H ABG O2 Saturation 68 L 100 H ABG Base Excess 3 4 H Assessment & Plan A&P Narrative atypical pulm process. afb's neg hypoxia on hig flow O2 dm, a1c <<7 noted. well controlled a1c 6.1 on 03/02 bnp ok. covid neg. rsv neg, procal neg.cocci neg then pos. looks and sounds like cocci confirmation at [facility] pending. may have it by saturday PM, agree with no isolation will check in again Saturday. if weaned off O2, can f/u as outpt I can see in clinic if/when released but must be referred by outpt primary with cocci at reference lab and cxr or ct chest report if released before next visit Time Spent With Patient Time: Total time spent is greater than 50% in coordination of care (as documented) at patient's floor/unit and/or counseling patient:
--- NOTE | 2025-03-15 10:05 | ESPR_ITS ---
<Statement entered by Jason Gomes MD - 03/19/25 08:12> I reviewed above note and agree with findings and plans. I have also personally examined the patient with medicine team and went over assessment and plan with medical team including help desk internship and resident physician. Documentation for date of: 03/15/25 Subjective Subjective Interval history: No overnight events. PAtient seen and assessed at bedside. Patient now on 3L nasal cannula saturating well. Will continue to wean off oxygen as able and work with PT today. Likely DC tomorrow on home O2. Exam Vital Signs Temp Pulse Resp BP Pulse Ox O2 Del Method O2 Flow Rate 96.8 F 84 21 H 115/79 96 Nasal Cannula 3 03/15/25 08:00 03/15/25 08:04 03/15/25 08:04 03/15/25 08:00 03/15/25 08:04 03/15/25 08:00 03/15/25 08:04 FiO2 45 03/14/25 16:00 Narrative Exam General: Awake. On nasal cannula. Heart: Regular rate and rhythm, no murmurs. Rubs, or gallops. Lungs: Chest clear to auscultation bilaterally anteriorly. Abdomen: Soft, nondistended, nontender, positive bowel sounds. ?No guarding or rebound tenderness. Neurologic: Alert and oriented x3, no gross neurological deficit, and patient able to move all 4 extremities. Extremities: No edema. Skin: No rash or ecchymoses. Objective Labs 03/14/25 08:00 03/15/25 04:58 Labs: Laboratory Results - last 24 hr 03/15/25 04:58 Sodium 138 Potassium 3.7 Chloride 103 Carbon Dioxide 26.0 Anion Gap 9 BUN 18 Creatinine 1.2 Estim Creat Clear Calc 56.6 L eGFR 54 L BUN/Creatinine Ratio 15 Glucose 120 H Calculated Osmolality 278 Calcium 9.9 Corrected Calcium 9.9 Total Bilirubin 0.4 AST 14 ALT 27 Alkaline Phosphatase 105 Total Protein 6.9 Albumin 4.2 Globulin 2.7 Albumin/Globulin Ratio 1.6 ABG Interpretation ABG results: 03/01/25 03/02/25 17:22 09:30 ABG pH 7.39 7.47 H ABG pCO2 46 39 ABG pO2 37 L* 122 H D ABG HCO3 28 H 28 H ABG O2 Saturation 68 L 100 H ABG Base Excess 3 4 H Quality Measures Quality Measures none Assessment & Plan Assessment Current Active Medications: Generic Name Dose Route Start Last Admin Trade Name Freq PRN Reason Stop Dose Admin Acetaminophen 650 mg 03/06/25 15:44 03/10/25 12:10 Acetaminophen 325 Mg Tablet PO 03/31/25 16:25 650 mg Q6H PRN Administration Fever >100.3, mild pain 1-3 Albuterol/Ipratropium 3 ml 03/03/25 16:45 03/15/25 08:03 Albuterol/Ipratropium (Duoneb) Rt Oriana 3 Ml Nebu INH 04/02/25 16:44 3 ml Q8HRRT MATEO Administration Docusate Sodium 100 mg 03/01/25 16:26 Docusate Sod 100 Mg Capsule PO 03/31/25 16:25 QDAY PRN CONSTIPATION Protocol Enoxaparin Sodium 40 mg 03/02/25 09:00 03/15/25 08:32 Enoxaparin Sod Inj 40 Mg/0.4 Ml Syringe SC 03/16/25 08:59 40 mg QDAY MATEO Administration Fluconazole 800 mg 03/11/25 09:00 03/15/25 08:32 Fluconazole 100 Mg Tablet PO 03/18/25 08:59 800 mg QDAY MATEO Administration Guaifenesin/Dextromethorphan 10 ml 03/11/25 14:15 03/15/25 05:26 Guaifenesin/Dm 10 Ml Udc PO 04/10/25 14:14 10 ml TID MATEO Administration Ondansetron HCl 4 mg 03/01/25 16:26 Ondansetron Inj 2 Mg/Ml Inj 2 Ml IV 03/31/25 16:25 Q6H PRN NAUSEA OR VOMITING Protocol Promethazine HCl 6.25 mg 03/11/25 14:15 03/15/25 06:42 Promethazine Hcl Syrup 6.25 Mg/5 Ml Udc PO 04/10/25 14:14 6.25 mg TID MATEO Administration Sodium Chloride 3 ml 03/01/25 13:10 Sodium Chloride Rt Oriana 0.9% 3 Ml Nebu INH 03/31/25 13:09 PRN PRN SOLN Plan 55-year-old female with significant past medical history of diabetes mellitus on metformin presented to the hospital with chief complaints of fever, shortness of breath and cough since 4 days and admitted for acute hypoxic respiratory failure secondary to bilateral pneumonia due to coccidoides # Acute hypoxic respiratory failure?improving # 2/2 Bilateral pneumonia due to coccidoides - presented to the hospital with chief complaints of fever, shortness of breath and cough with expectoration since 4 days - Patient saw primary care provider in [facility] and received antibiotics, amoxicillin and clavulanate - As her symptoms got worsened despite using antibiotics patient presented to the hospital - Vitals at the time of admission showed SpO2 85% with room air, pulse rate 105 bpm - Chest x-ray showed bilateral infiltrates - CTA chest showed bilateral miliary pattern infiltrates and negative for pulmonary emboli - Coccidioides IgM antibodies negative twice on 03/01, 03/03 and positive on 03/05/2025, reflex sent to [facility] for confirmation, Beta D glucan- 75 - Influenza, COVID testing negative - TB QuantiFERON test was sent, came back indeterminate, repeat sample was sent - Blood cultures came back negative - Sputum sent for Gram stain and cultures showed GPC, GNR, YEAST, epithelial cells - likely contaminant - ECHO showed - Normal LV size and function. Estimated EF 55-60%. Grade I diastolic dysfunction. RV is normal in size and systolic function. Mild TR. - AFB Negative x 3 Plan - On fluconazole 800mg IV daily - Nebulizations every 8 hourly - Chest physiotherapy and Incentive spirometry - Oxygen, titration as needed - Promethazine scheduled every 8 hrs. - Dr Barrientos is consulted and will appreciate his recommendations # Acute kidney injury-Resolving Secondary to amphotericin B - Baseline creatinine at the time of admission is 0.7 Plan - Strict input and output - Encouraged patient to take plenty of oral fluids - Will avoid nephrotoxic medications and renally dose medications # History of diabetes mellitus - Patient is using metformin 500 Mg twice daily at home - HbA1c is ordered, 6.1 - Her blood glucose levels are within normal limits, will hold insulin for now and will continue oral hypoglycemic medications on outpatient basis. # Hypokalemia?resolved Hospital Maintenance: Dispo: Med tele DVT ppx: Lovenox GI ppx: Protonix Diet: Carbohydrate consistent IV lines: Peripheral Code status: Full code Plan of care discussed with attending physician Dr. Eliseo Jean MD PGY3
--- NOTE | 2025-03-15 12:07 | PC.SS ---
SS follow up note; Patient is currently on 6L. Weaning down on 02. patient will discharge back home when medically cleared.
[2025-03-16] VITALS (7 sets, daily range): BP systolic 104–115; BP diastolic 71–80; PULSE 76–99; RESP 18–20; TEMP 36.1–36.5; O2SAT 90–100
[2025-03-16] MEDS: guaiFENesin/DM 10 ML UDC PO ×2 (05:10→14:21)
[2025-03-16] MEDS: PROMETHAZINE HCL SYRUP 6.25 MG/5 ML UDC PO ×2 (05:10→14:21)
[2025-03-16] MEDS: ALBUTEROL/IPRATROPIUM (Duoneb) RT SOL 3 ML NEBU INH ×2 (06:07→15:27)
[2025-03-16] MEDS: FLUCONAZOLE 100 MG TABLET 800 MG PO (08:43)
--- NOTE | 2025-03-16 10:09 | PC.SS ---
SS Follow up note; Patient will discharge today, however patient is on 3L. SS contacted patients nurse, Karolyn requested 02 testing.
--- NOTE | 2025-03-16 11:00 | PC.NURSE ---
O2 evaluation: Patient is currently using 3L NC. At rest on room air, patients O2 saturation is 88%.
--- NOTE | 2025-03-16 12:15 | PC.SS ---
SS follow up note; SS Submitted 02 referral through [facility].
--- NOTE | 2025-03-16 14:32 | ESDS_ITS ---
<Statement entered by Jason Gomes MD - 03/19/25 08:13> I reviewed above note and agree with findings and plans. I have also personally examined the patient with medicine team and went over assessment and plan with medical team including manufacturing engineering intern and resident physician. Planned Discharge Date 03/16/25 DS: Providers Provider Date of admission: 03/01/25 16:26 Primary care physician: Mere Estrada NP Admitting Provider: Irwin Owen MD Attending Provider on Admission: Jason Gomes MD Consults: 03/03/25 10:59 Consult to Infectious Diseases Stat Comment: Consulting Provider: Dada Barrientos 03/04/25 13:48 Referral Physical Therapy Stat Comment: Physician Instructions: 03/15/25 07:41 Referral Physical Therapy Routine Comment: Physician Instructions: Attending Provider on DC: Isacc Griffith MD Discharging Provider: Isacc Griffith MD DS: Diagnosis Problem List Completed Was Problem List Reviewed/Reconciled?: Yes Hospital Course Hospital Course Hospital course: 55-year-old female with significant past medical history of diabetes mellitus on metformin presented to the hospital with chief complaints of fever, shortness of breath and cough since 4 days and admitted in the hospital for cocci pneumonia. Hospital course: Vitals are stable at the time of admission are within normal limits except for SpO2 85% with room air. Chest CTA showed extensive miliary type pneumonia and is negative for pulmonary embolism. Tested negative for influenza and COVID. Patient was admitted in isolation for TB rule out. Blood cultures, sputum cultures came back negative. Tested negative for AFB. Initial QuantiFERON came back indeterminate but later repeat sample for QuantiFERON TB came back neg ative. Echo showed normal LV size and function with EF 55 to 60%. Cocci IgM came back negative on 03/01, 03/03 and repeat cocci on 03/05/[address] came back [address] Infectious diseases Dr. Barrientos is consulted and he recommended to continue fluconazole. Despite on fluconazole 400 mg patient oxygen needs are high and patient is on high flow for which Dr Barrientos recommended amphotericin B but unfortunately after 2 days patient developed an NARESH following which amphotericin B is stopped and patient is started on fluconazole 800 Mg. Slowly patient is weaned off from high flow oxygen to oxy mask and then to nasal cannula. At the time of discharge patient is on 2 L oxygen through nasal cannula and is able to tolerate physical therapy well. Patient is being discharged on 2 L oxygen, 800 mg fluconazole to home Patient is discharged to home with the following medications and recommendations -Follow-up with PCP within 1 week of discharge. If you do not have appointment, please follow-up with the [facility] with Dr. Griffith. Call [phone] to make an appointment. -Recommended to continue Fluconazole 800mg orally once daily for 3-6 months based on your PCP recommendations, started on 03/10/2025 -Recommended to get liver function testing as fluconazole can affect them in your follow up visits with pcp -Recommended to continue oxygen ass needed and monitor saturations with a pulse oximeter -Continue Meformin 500mg orally daily -Return to ED if symptoms persist or return # Acute hypoxic respiratory failure, resolved # 2/2 Bilateral pneumonia due to coccidoides # Acute kidney injury-Resolving # History of diabetes mellitus Patient plan of care was discussed with the attending physician, Dr. Gomes and senior resident Dr. Deirdre Griffith, PGY1 Time Spent with Patient Time attestation: Total time spent providing and/or coordinating discharge services: Time spent: Greater than 30 minutes Exam Vital Signs Temp Pulse Resp BP Pulse Ox O2 Del Method O2 Flow Rate 97.7 F 86 18 104/72 91 L Nasal Cannula 3 03/16/25 12:00 03/16/25 12:00 03/16/25 12:00 03/16/25 12:00 03/16/25 12:00 03/16/25 12:00 03/16/25 08:00 FiO2 45 03/14/25 16:00 Narrative Exam General: Awake. HEENT: Normocephalic, atraumatic, mucous membranes moist. Heart: Regular rate and rhythm, no murmurs. Lungs: Clear to auscultation with no wheezing or crackles. Abdomen: Soft, nondistended, nontender, positive bowel sounds. ?No guarding or rebound tenderness. Neurologic: Alert and oriented x3, no gross neurological deficit, and patient able to move all 4 extremities. Extremities: No edema. Skin: No rash or ecchymoses. Discharge Plan Plan Patient Disposition: HOME (Self Care) Patient condition on transfer: Stable Care Plan Goals: -Follow-up with PCP within 1 week of discharge. If you do not have appointment, please follow-up with the [facility] with Dr. Griffith. Call [phone] to make an appointment. -Recommended to continue Fluconazole 800mg orally once daily for 3-6 months based on your PCP recommendations, started on 03/10/2025 -Recommended to get liver function testing as fluconazole can affect them in your follow up visits with pcp -Recommended to continue oxygen ass needed and monitor saturations with a pulse oximeter -Continue Meformin 500mg orally daily -Return to ED if symptoms persist or return Prescriptions/Referrals Prescriptions/Med Rec: New fluconazole 200 mg tablet 800 mg PO QDAY Qty: 120 3RF Continued metformin 500 mg tablet extended release 24 hr 500 mg PO DAILY Discontinued naproxen 500 mg tablet 500 mg PO HS Referrals: Mere Estrada NP [Primary Care Provider] - Patient/Caregiver Discharge Instructions Education Materials: What Is Pneumonia?, Treating Pneumonia, Shortness of Breath Coping, When You Have Pneumonia Print Language: [place] Stand Alone Forms: [employer] Award Info., Patient Portal Info Letter Discharge Order Discharge Orders: Discharge (Routine); Ordered 03/16/25 Ordered By: Isacc Griffith Quality Discharge Quality Measures VTE prophylaxis
--- NOTE | 2025-03-16 15:22 | PC.SS ---
SS follow up note; [facility] will be delivery 02 at bedside within 2-3 Hours. SS will update patients nurse.
--- NOTE | 2025-03-16 17:12 | PC.SS ---
RN called and stated she wanted to speak with Radha regarding DME request for a walker for the pt. JONEL Hernandez will inform Radha of the request.
--- NOTE | 2025-03-16 17:16 | PC.SS ---
[id number] Zane Hernandez submitted a walker request via [email or web address] for the pt. Note, the DME company will contact the pts Person to Notify for additional information.
== END 2025-03-16 17:35 | disposition home or self-care (01) | DRG 139 ==
LOC: SERX 15:36 → SERHOLD 17:09 → S3NX 18:34 → S2NX 03-04 02:25
PROVIDERS: Internal Medicine Infectious Disease; Registered Nurse General Practice; Student in an Organized Health Care Education/Training Program; Admitting Provider Student in an Organized Health Care Education/Training Program; Emergency Provider Emergency Medicine; PCP Nurse Practitioner Women's Health; Visit Provider Internal Medicine
DX: J18.9 Pneumonia, unspecified organism (principal); J96.01 Acute respiratory failure with hypoxia; E11.9 Type 2 diabetes mellitus without complications; E87.6 Hypokalemia; I50.9 Heart failure, unspecified; N17.9 Acute kidney failure, unspecified; Z78.9 Other specified health status; Z79.84 Long term (current) use of oral hypoglycemic drugs; T36.7X5A Adverse effect of antifungal antibiotics, systemically used, initial encounter
CPT/HCPCS: 36415; 36600; 71045; 71046; 71275; 80048; 80053; 80061; 80069; 80307; 81001; 81025; 82803; 83036; 83605; 83615; 83735; 83880; 84100; 84145; 84439; 84443; 84484; 85025; 85610; 85730; 86331; 86480; 86635; 86703; 86803; 87015; 87040; 87116; 87205; 87206; 87400; 87449; 87634; 87811; 93005; 93225; 93306; 94640; 94644; 94667; 96365; 97161; 99285; A4649; A9270; J0287; J0456; J0696; J1200; J1450; J1650; J7030; J7040; J7050; J8540; Q9967

== ENCOUNTER 2025-03-19 14:28 | Outpatient (AMB) | payer MEDICAID, SELFPAY ==
[2025-03-19 14:41] VITALS: BP 119/81; PULSE 91; RESP 18; TEMP 36.8; O2SAT 94
--- NOTE | 2025-03-19 14:41 | PD.RESCLINIC ---
Vital Signs 03/19/25 14:41 Weight 79.889 kg Weight Measurement Method Standing Scale BP 119/81 Blood Pressure Source Automatic Cuff Blood Pressure Location Left Upper Arm Position Sitting Respiration 18 Pulse 91 Pulse Source Monitor Temp 98.2 F Temp Source Oral Pulse Oximetry (%) 94 L Oxygen Delivery Method Room Air Allergies/Meds Allergies & Medications Allergies No Known Allergies Allergy (Verified 03/19/25 14:42) Medication Reconciliation metformin 500 mg tablet,extended release 24 hr 500 mg PO DAILY 03/02/25 [History Confirmed 03/19/25] fluconazole 200 mg tablet 800 mg (4 x 200 mg) PO QDAY #120 tabs 03/16/25 [Rx Confirmed 03/19/25] MA Intake Visit Data Collection New Patient or Established: Established Patient (seen at [facility] within 3 years) Reason for Visit:: HOSPITAL FOLLOW UP Pain Present Currently: Yes Pain Location: Back Pain scale:: 7 Pain Scale Used: Garcia-Plummer/Numerical Senior Data Warehouse Architect Required: No PCP or OBGYN visit in last 3 months: Yes Hx Now: No Do You Feel Safe at Home: Yes Authorities Contacted: N/A Smoking Status Smoking Status: Never smoker Immunization / Flu Flu Vaccine in the Last 12 Months: No Flu Vaccine Exclusion Criteria: No Exclusion Criteria Past Medical History Past Medical History CARDIAC: Negative Cardiac Disorders or Congestive Heart Failure RESPIRATORY: Positive Asthma; Negative Chronic Obstructive Pulmonary Disease (COPD) GENITOURINARY: Negative Renal Disease ENDOCRINE: Positive Diabetes Mellitus Type 2; Negative Diabetes Mellitus Type 1 HEMATOLOGIC: Negative Sickle Cell Disease Surgical History SURGICAL: Positive Section Social History SMOKING STATUS: Smoking status: Never smoker ALCOHOL: Alcohol Intake: Never HOUSING: Housing: House LIVES WITH: Lives With: Spouse Patient Portal Questionairkj Social History Living Situation History Housing: House Tobacco History Smoking Status: Never smoker Alcohol History Alcohol Intake: Never Domestic Abuse History Do You Feel Safe at Home: Yes Review of Systems Report any current symptoms Only answer those that you have currently: Past Medical History Past Medical History Have you ever been diagnosed with any of the following: Cardiology Problems Congestive Heart Failure: No Respiratory Problems Chronic Obstructive Pulmonary Disease (COPD): No Asthma: Yes Genital/Urinary Problems Renal Disease: No Endocrine Problems Diabetes Mellitus Type 1: No Diabetes Mellitus Type 2: Yes Blood Problems Sickle Cell Disease: No History of Present Illness HPI Narrative 55-year-old female with significant past medical history of diabetes mellitus on metformin presented to the hospital with chief complaints of fever, shortness of breath and cough since 4 days and admitted in the hospital on 03/01/2025 for cocci pneumonia. Chest CTA showed extensive miliary type pneumonia and is negative for pulmonary embolism. Tested negative for influenza and COVID. Patient was admitted in isolation for TB rule out. Blood cultures, sputum cultures came back negative. Tested negative for AFB. Initial QuantiFERON came back indeterminate but later repeat sample for QuantiFERON TB came back negative. Echo showed normal LV size and function with EF 55 to 60%. Cocci IgM came back negative on 03/01, 03/03 and repeat cocci on 03/05/2025 came back positive. Infectious diseases Dr. Barrientos is consulted and he recommended to continue fluconazole. Despite on fluconazole 400 mg patient oxygen needs are high and patient is on high flow for which Dr Barrientos recommended amphotericin B but unfortunately after 2 days patient developed an NARESH following which amphotericin B is stopped and patient is started on fluconazole 800 Mg. Slowly patient is weaned off from high flow oxygen to oxy mask and then to nasal cannula. At the time of discharge patient is on 2 L oxygen through nasal cannula and is able to tolerate physical therapy well. Patient is being discharged on 2 L oxygen, 800 mg fluconazole to home on 03/16/2025 : Patient came for follow-up to the clinic for her cocci pneumonia. Patient stated that she is doing well and is using oxygen only when she is short of breath. Also endorsed that she is using pulse oximeter which showed saturations of around 94%. In the clinic, the saturation is 94% on room air. Patient still endorses that she had mild cough but became better since she was discharged home. Able to tolerate medications. Denies any other complaints. Also requested for documentation to get sick leave from the work for 3 months. Review of Systems Review of Systems Systems Reviewed: All systems reviewed, normal except as documented Objective/Exam Narrative Physical exam: General: Awake. HEENT: Normocephalic, atraumatic, mucous membranes moist. Heart: Regular rate and rhythm, no murmurs. Lungs: Clear to auscultation with no wheezing or crackles. Abdomen: Soft, nondistended, nontender, positive bowel sounds. ?No guarding or rebound tenderness. Neurologic: Alert and oriented x3, no gross neurological deficit, and patient able to move all 4 extremities. Extremities: No edema. Skin: No rash or ecchymoses. Assessment & Plan Diagnosis / Problem List (1) Coccidioidomycosis, primary pulmonary: Status: Acute Assessment & Plan: - Patient was diagnosed with cocci on 02/2025 for which patient was started on fluconazole 400 Mg as patient had severe cocci pneumonia and later the dose is increased to 800 Mg as patient pneumonia did not improve even with amphotericin B. After starting 800 Mg fluconazole patient was weaned off to nasal oxygen from high flow - Came for follow-up to the clinic following hospital admission - Still complaining of cough but improving since the hospital discharge and using oxygen as needed Plan: - Recommended to continue fluconazole for 1 month - Repeat LFT ordered to look for any fluconazole induced liver injury - will follow up in 1 month and adjust dose of fluconazole - Will provide documents for sick leave from work (2) Diabetes mellitus: Status: Acute Assessment & Plan: - Patient is using metformin 500mg ER once daily and A1c is 6.1 as of 03/02/2025 Plan: - Recommended to cotinue the same medication - Educated on diet and exercise Office Procedures [facility] Level of Care Nursing/Assessment Patient Status: Established Patient Nursing Assessment/Reassessment: Medication Reconciliation, Update PMH in EMR and Vital Signs Coordination of Care: Complex Care and Chronic Disease 1-5, Consent,records obtained, informed consent, Education Simp Pt/Fam, Lab and Imaging orders, Results/Orders obtained and Staff clarify orders Established Patient Charge Established Patient Point Assignment: 105 Established Patient Point Charge: EP Level 3 (80-115)
== END 2025-03-19 15:00 | disposition home or self-care (01) ==
LOC: HODAHC 14:28
PROVIDERS: Supervising Provider Internal Medicine
DX: J18.9 Pneumonia, unspecified organism (principal); B38.2 Pulmonary coccidioidomycosis, unspecified; E11.9 Type 2 diabetes mellitus without complications; Z79.84 Long term (current) use of oral hypoglycemic drugs
CPT/HCPCS: 99213; G0463

== ENCOUNTER 2025-04-09 14:19 | Outpatient (AMB) | payer MEDICAID, SELFPAY ==
[2025-04-09 14:13] VITALS: BP 127/81; PULSE 78; RESP 18; TEMP 36.8; O2SAT 95; BMI 29.0
--- NOTE | 2025-04-09 14:13 | ACNOTE_ITS ---
Vital Signs 04/09/25 14:13 Height 1.65 m Height Method Stated Weight 79.095 kg Weight Measurement Method Standing Scale BMI 29.0 BP 127/81 Blood Pressure Source Automatic Cuff Blood Pressure Location Right Upper Arm Position Sitting Respiration 18 Pulse 78 Pulse Source Monitor Temp 98.2 F Temp Source Temporal Artery Scan Pulse Oximetry (%) 95 Oxygen Delivery Method Room Air Allergies/Meds Allergies & Medications Allergies No Known Allergies Allergy (Verified 04/09/25 14:28) Medication Reconciliation metformin 500 mg tablet,extended release 24 hr 500 mg PO DAILY 03/02/25 [History Confirmed 04/09/25] fluconazole 200 mg tablet 800 mg (4 x 200 mg) PO QDAY #120 tabs 04/09/25 [Rx] MA Intake Visit Data Collection New Patient or Established: Established Patient (seen at [facility] within 3 years) Seen by Clinical Staff ONLY (RN/MA): No Pain Present Currently: No Pain scale:: 0 Pain Scale Used: Garcia-Plummer/Numerical Mixed Crop And Livestock Farmer Required: No PCP or OBGYN visit in last 3 months: No Hx Now: No Do You Feel Safe at Home: Yes Authorities Contacted: N/A Smoking Status Smoking Status: Never smoker Immunization / Flu Flu Vaccine in the Last 12 Months: No Flu Vaccine Exclusion Criteria: No Exclusion Criteria Past Medical History Past Medical History CARDIAC: Negative Cardiac Disorders or Congestive Heart Failure RESPIRATORY: Positive Asthma; Negative Chronic Obstructive Pulmonary Disease (COPD) GENITOURINARY: Negative Renal Disease ENDOCRINE: Positive Diabetes Mellitus Type 2; Negative Diabetes Mellitus Type 1 HEMATOLOGIC: Negative Sickle Cell Disease Surgical History SURGICAL: Positive Section Social History SMOKING STATUS: Smoking status: Never smoker ALCOHOL: Alcohol Intake: Never HOUSING: Housing: House LIVES WITH: Lives With: Spouse Patient Portal Questionaires PHQ-9 PHQ-2 Over the last 2 weeks, how often have you been bothered by any of the following problems? 1. Little interest or pleasure in doing things: not at all 2. Feeling down, depressed, or hopeless: not at all Total score: 0 PHQ-9 3. Trouble falling or staying asleep, or sleeping too much: Not at all 4. Feeling tired or having little energy: Not at all 5. Poor appetite or overeating: Not at all 6. Feeling bad about yourself - or that you are a failure or have let yourself or your family down: Not at all 7. Trouble concentrating on things, such as reading the newspaper or watching television: Not at all 8. Moving or speaking so slowly that other people could have noticed? - Or the opposite - being so fidgety or restless that you have been moving around a lot more than usual: not at all 9. Thoughts that you would be better off or of hurting yourself in some way: Not at all Total score: 0 Source: Developed by Drs. Ramirez Courtney, Scarlett Givens, Charly Quintero and colleagues, with an educational brianne from [employer]. Social History Living Situation History Housing: House Tobacco History Smoking Status: Never smoker Alcohol History Alcohol Intake: Never Domestic Abuse History Do You Feel Safe at Home: Yes Review of Systems Report any current symptoms Only answer those that you have currently: Past Medical History Past Medical History Have you ever been diagnosed with any of the following: Cardiology Problems Congestive Heart Failure: No Respiratory Problems Chronic Obstructive Pulmonary Disease (COPD): No Asthma: Yes Genital/Urinary Problems Renal Disease: No Endocrine Problems Diabetes Mellitus Type 1: No Diabetes Mellitus Type 2: Yes Blood Problems Sickle Cell Disease: No History of Present Illness HPI Narrative 55-year-old female with significant past medical history of diabetes mellitus on metformin presented to the hospital with chief complaints of fever, shortness of breath and cough since 4 days and admitted in the hospital on 03/01/2025 for cocci pneumonia. Chest CTA showed extensive miliary type pneumonia and is negative for pulmonary embolism. Tested negative for influenza and COVID. Patient was admitted in isolation for TB rule out. Blood cultures, sputum cultures came back negative. Tested negative for AFB. Initial QuantiFERON came back indeterminate but later repeat sample for QuantiFERON TB came back negative. Echo showed normal LV size and function with EF 55 to 60%. Cocci IgM came back negative on 03/01, 03/03 and repeat cocci on 03/05/2025 came back positive. Infectious diseases Dr. Barrientos is consulted and he recommended to continue fluconazole. Despite on fluconazole 400 mg patient oxygen needs are high and patient is on high flow for which Dr Barrientos recommended amphotericin B but unfortunately after 2 days patient developed an NARESH following which amphotericin B is stopped and patient is started on fluconazole 800 Mg. Slowly patient is weaned off from high flow oxygen to oxy mask and then to nasal cannula. At the time of discharge patient is on 2 L oxygen through nasal cannula and is able to tolerate physical therapy well. Patient is being discharged on 2 L oxygen, 800 mg fluconazole to home on 03/16/2025 : Patient came for follow-up to the clinic for her cocci pneumonia. Patient stated that she is doing well and is using oxygen only when she is short of breath. Also endorsed that she is using pulse oximeter which showed saturations of around 94%. In the clinic, the saturation is 94% on room air. Patient still endorses that she had mild cough but became better since she was discharged home. Able to tolerate medications. Denies any other complaints. Also requested for documentation to get sick leave from the work for 3 months. 04/09/2025: Came with son and daughter. Patient came for follow-up on her cocci pneumonia. Patient stated that she is doing well and her cough is subsiding but still having occasional shortness of breath for which she is using oxygen at night as needed. Denies any other complaints and is able to tolerate medications well. Continuing to take the fluconazole and metformin as directed. Review of Systems Review of Systems Systems Reviewed: All systems reviewed, normal except as documented Objective/Exam Narrative Physical exam: General: Awake. HEENT: Normocephalic, atraumatic, mucous membranes moist. Heart: Regular rate and rhythm, no murmurs. Lungs: Clear to auscultation with no wheezing or crackles. Abdomen: Soft, nondistended, nontender, positive bowel sounds. ?No guarding or rebound tenderness. Neurologic: Alert and oriented x3, no gross neurological deficit, and patient able to move all 4 extremities. Extremities: No edema. Skin: No rash or ecchymoses. Assessment & Plan Diagnosis / Problem List (1) Coccidioidomycosis, primary pulmonary: Status: Acute Assessment & Plan: - Patient was diagnosed with cocci on 02/2025 for which patient was started on fluconazole 400 Mg as patient had severe cocci pneumonia and later the dose is increased to 800 Mg as patient pneumonia did not improve even with amphotericin B. After starting 800 Mg fluconazole patient was weaned off to nasal oxygen from high flow during the hospital admission - Came for follow-up to the clinic - Still complaining of cough but improving since the hospital discharge and using oxygen as needed Plan: - Recommended to continue fluconazole 800mg for 2 more months - Repeat LFT ordered during last visit is within normal limits - will follow up in 2 months and adjust dose of fluconazole to 400mg depending on patients clinical condition - Will repeat CT chest to look for residual lesions from cocci - to R/O cavity - Will provide documents for sick leave from work (2) Diabetes mellitus: Status: Acute Assessment & Plan: - Patient is using metformin 500mg ER once daily and A1c is 6.1 as of 03/02/2025 Plan: - Recommended to cotinue the same medication - Educated on diet and exercise Office Procedures [facility] Level of Care Nursing/Assessment Patient Status: Established Patient Nursing Assessment/Reassessment: Medication Reconciliation, Update PMH in EMR and Vital Signs Coordination of Care: Complex Care and Chronic Disease 1-5, Consent,records obtained, informed consent, Education Simp Pt/Fam, Lab and Imaging orders and Staff clarify orders Established Patient Charge Established Patient Point Assignment: 100 Established Patient Point Charge: EP Level 3 (80-115)
== END 2025-04-09 14:42 | disposition home or self-care (01) ==
LOC: HODAHC 14:19
DX: B38.2 Pulmonary coccidioidomycosis, unspecified (principal); E11.9 Type 2 diabetes mellitus without complications; Z79.84 Long term (current) use of oral hypoglycemic drugs
CPT/HCPCS: 99213; G0463

== ENCOUNTER 2025-06-08 10:29 | Outpatient (AMB) | payer MEDICAID, SELFPAY ==
[2025-06-08 10:39] VITALS: BP 122/83; PULSE 96; RESP 18; TEMP 36.6; O2SAT 94; BMI 28.5
--- NOTE | 2025-06-08 10:39 | PD.RESCLINIC ---
Vital Signs 06/08/25 10:39 Height 1.65 m Height Method Stated Weight 77.564 kg Weight Measurement Method Standing Scale BMI 28.5 BP 122/83 Blood Pressure Source Automatic Cuff Blood Pressure Location Right Upper Arm Position Sitting Respiration 18 Pulse 96 Pulse Source Monitor Temp 97.8 F Temp Source Temporal Artery Scan Pulse Oximetry (%) 94 L Oxygen Delivery Method Room Air Allergies/Meds Allergies & Medications Allergies No Known Allergies Allergy (Verified 06/08/25 10:40) Medication Reconciliation metformin 500 mg tablet,extended release 24 hr 500 mg PO DAILY 03/02/25 [History Confirmed 06/08/25] fluconazole 200 mg tablet 800 mg (4 x 200 mg) PO QDAY #120 tabs 04/09/25 [Rx Confirmed 06/08/25] atorvastatin 20 mg tablet 20 mg PO QHS #30 tabs 06/08/25 [Rx] MA Intake Visit Data Collection New Patient or Established: Established Patient (seen at [facility] within 3 years) Seen by Clinical Staff ONLY (RN/MA): No Pain Present Currently: No Pain scale:: 0 Pain Scale Used: Garcia-Plummer/Numerical Transfer Clerk Required: No PCP or OBGYN visit in last 3 months: No Hx Now: No Do You Feel Safe at Home: Yes Authorities Contacted: N/A Smoking Status Smoking Status: Never smoker Immunization / Flu Flu Vaccine in the Last 12 Months: No Flu Vaccine Exclusion Criteria: No Exclusion Criteria Past Medical History Past Medical History CARDIAC: Negative Cardiac Disorders or Congestive Heart Failure RESPIRATORY: Positive Asthma; Negative Chronic Obstructive Pulmonary Disease (COPD) GENITOURINARY: Negative Renal Disease ENDOCRINE: Positive Diabetes Mellitus Type 2; Negative Diabetes Mellitus Type 1 HEMATOLOGIC: Negative Sickle Cell Disease Surgical History SURGICAL: Positive Section Social History SMOKING STATUS: Smoking status: Never smoker ALCOHOL: Alcohol Intake: Never HOUSING: Housing: House LIVES WITH: Lives With: Spouse Patient Portal Questionaires PHQ-9 PHQ-2 Over the last 2 weeks, how often have you been bothered by any of the following problems? 1. Little interest or pleasure in doing things: not at all PHQ-9 8. Moving or speaking so slowly that other people could have noticed? - Or the opposite - being so fidgety or restless that you have been moving around a lot more than usual: not at all Source: Developed by Drs. Ramirez Courtney, Scarlett BCharly Clay and colleagues, with an educational brianne from [employer]. Social History Living Situation History Housing: House Tobacco History Smoking Status: Never smoker Alcohol History Alcohol Intake: Never Domestic Abuse History Do You Feel Safe at Home: Yes Review of Systems Report any current symptoms Only answer those that you have currently: Past Medical History Past Medical History Have you ever been diagnosed with any of the following: Cardiology Problems Congestive Heart Failure: No Respiratory Problems Chronic Obstructive Pulmonary Disease (COPD): No Asthma: Yes Genital/Urinary Problems Renal Disease: No Endocrine Problems Diabetes Mellitus Type 1: No Diabetes Mellitus Type 2: Yes Blood Problems Sickle Cell Disease: No History of Present Illness HPI Narrative 55-year-old female with significant past medical history of diabetes mellitus on metformin presented to the hospital with chief complaints of fever, shortness of breath and cough since 4 days and admitted in the hospital on 03/01/2025 for cocci pneumonia. Chest CTA showed extensive miliary type pneumonia and is negative for pulmonary embolism. Tested negative for influenza and COVID. Patient was admitted in isolation for TB rule out. Blood cultures, sputum cultures came back negative. Tested negative for AFB. Initial QuantiFERON came back indeterminate but later repeat sample for QuantiFERON TB came back negative. Echo showed normal LV size and function with EF 55 to 60%. Cocci IgM came back negative on 03/01, 03/03 and repeat cocci on 03/05/2025 came back positive. Infectious diseases Dr. Barrientos is consulted and he recommended to continue fluconazole. Despite on fluconazole 400 mg patient oxygen needs are high and patient is on high flow for which Dr Barrientos recommended amphotericin B but unfortunately after 2 days patient developed an NARESH following which amphotericin B is stopped and patient is started on fluconazole 800 Mg. Slowly patient is weaned off from high flow oxygen to oxy mask and then to nasal cannula. At the time of discharge patient is on 2 L oxygen through nasal cannula and is able to tolerate physical therapy well. Patient is being discharged on 2 L oxygen, 800 mg fluconazole to home on 03/16/2025 : Patient came for follow-up to the clinic for her cocci pneumonia. Patient stated that she is doing well and is using oxygen only when she is short of breath. Also endorsed that she is using pulse oximeter which showed saturations of around 94%. In the clinic, the saturation is 94% on room air. Patient still endorses that she had mild cough but became better since she was discharged home. Able to tolerate medications. Denies any other complaints. Also requested for documentation to get sick leave from the work for 3 months. 04/09/2025: Came with son and daughter. Patient came for follow-up on her cocci pneumonia. Patient stated that she is doing well and her cough is subsiding but still having occasional shortness of breath for which she is using oxygen at night as needed. Denies any other complaints and is able to tolerate medications well. Continuing to take the fluconazole and metformin as directed. 06/08/2025: Came with her daughter who helped in interpretation and also took the help of crusher tender. Came for regular follow-up visit. Saturating well on room air. Endorsed that patient noticed to have high blood pressures at home during which she noted to have headache also. But blood pressures during hospitalization and during this visit is within normal limits. Monitoring blood pressure with the help of wristband which is not that accurate and recommended to use a blood pressure cuff to check the blood pressure. Denies shortness of breath and cough. Last labs were done on 05/17/2025 which showed CBC and CMP within normal effect. Lipid profile showed elevated triglycerides and cholesterol but lipid profile from 15 days ago is normal could be some lab error. Will repeat lipid profile later sometime and ordered atorvastatin 20 Mg as patient also had history of diabetes mellitus. Repeat CT chest is ordered to rule out any cavitary lesions. Review of Systems Review of Systems Systems Reviewed: All systems reviewed, normal except as documented Objective/Exam Narrative Physical exam: General: Awake. HEENT: Normocephalic, atraumatic, mucous membranes moist. Heart: Regular rate and rhythm, no murmurs. Lungs: Clear to auscultation with no wheezing or crackles. Abdomen: Soft, nondistended, nontender, positive bowel sounds. ?No guarding or rebound tenderness. Neurologic: Alert and oriented x3, no gross neurological deficit, and patient able to move all 4 extremities. Extremities: No edema. Skin: No rash or ecchymoses. Assessment & Plan Diagnosis / Problem List (1) Coccidioidomycosis, primary pulmonary: Status: Acute Assessment & Plan: - Patient was diagnosed with cocci on 02/2025 for which patient was started on fluconazole 400 Mg as patient had severe cocci pneumonia and later the dose is increased to 800 Mg as patient pneumonia did not improve even with amphotericin B. After starting 800 Mg fluconazole patient was weaned off to nasal oxygen from high flow during the hospital admission - Came for follow-up to the clinic Plan: - Recommended to continue fluconazole 400mg for 3 more months - Repeat LFT ordered during last visit is within normal limits - Ordered CT chest to look for residual lesions from cocci - to R/O cavity (2) Dyslipidemia: Status: Acute Assessment & Plan: Found to have elevated triglycerides and cholesterol from 05/17/2025 But lipid profile from 05/02/2025 is within normal limits Plan: - Started on atorvastatin 20 Mg as patient also had diabetes - Will repeat lipid profile later (3) Diabetes mellitus: Status: Acute Assessment & Plan: - Patient is using metformin 500mg ER once daily and A1c is 6.1 as of 03/02/2025 Plan: - Recommended to cotinue the same medication - Educated on diet and exercise Orders: Orders CT chest wo con Today B38.2 - Pulmonary coccidioidomycosis, unspecified Office Procedures [facility] Level of Care Nursing/Assessment Patient Status: Established Patient Nursing Assessment/Reassessment: Medication Reconciliation, Update PMH in EMR and Vital Signs Coordination of Care: Complex Care and Chronic Disease 1-5, Consent,records obtained, informed consent, Education Simp Pt/Fam and Staff clarify orders Established Patient Charge Established Patient Point Assignment: 85 Established Patient Point Charge: Level 3 (80-115)
== END 2025-06-08 12:06 | disposition home or self-care (01) ==
LOC: HODAHC 10:29
PROVIDERS: Supervising Provider Internal Medicine
DX: B38.0 Acute pulmonary coccidioidomycosis (principal); E78.5 Hyperlipidemia, unspecified; E11.9 Type 2 diabetes mellitus without complications; Z79.84 Long term (current) use of oral hypoglycemic drugs
CPT/HCPCS: 99213; G0463

== ENCOUNTER 2025-07-20 09:53 | Outpatient (AMB) | payer MEDICAID, SELFPAY ==
[2025-07-20 10:07] VITALS: BP 126/81; PULSE 73; RESP 17; TEMP 36.8; O2SAT 95; BMI 29.3
--- NOTE | 2025-07-20 10:07 | ACNOTE_ITS ---
Vital Signs 07/20/25 10:07 Height 1.65 m Height Method Stated Weight 79.832 kg Weight Measurement Method Standing Scale BMI 29.3 BP 126/81 Blood Pressure Source Automatic Cuff Blood Pressure Location Left Upper Arm Position Sitting Respiration 17 Pulse 73 Pulse Source Monitor Temp 98.2 F Temp Source Oral Pulse Oximetry (%) 95 Oxygen Delivery Method Room Air Allergies/Meds Allergies & Medications Allergies No Known Allergies Allergy (Verified 07/20/25 10:08) Medication Reconciliation metformin 500 mg tablet,extended release 24 hr 500 mg PO DAILY 03/02/25 [History Confirmed 07/20/25] fluconazole 200 mg tablet 800 mg (4 x 200 mg) PO QDAY #120 tabs 04/09/25 [Rx Confirmed 07/20/25] atorvastatin 20 mg tablet 20 mg PO QHS #30 tabs 06/08/25 [Rx Confirmed 07/20/25] baclofen 5 mg tablet 5 mg PO QDAY PRN muscle spasm #7 tabs 07/20/25 [Rx] lidocaine 4 % topical patch (AsperFlex (lidocaine)) 1 patch topical QDAY PRN pain #5 ea 07/20/25 [Rx] MA Intake Visit Data Collection New Patient or Established: Established Patient (seen at [facility] within 3 years) Seen by Clinical Staff ONLY (RN/MA): No Pain Present Currently: Yes Pain Location: Back Pain scale:: 5 PCP or OBGYN visit in last 3 months: No Do You Feel Safe at Home: Yes Authorities Contacted: N/A Smoking Status Smoking Status: Never smoker Immunization / Flu Flu Vaccine in the Last 12 Months: No Flu Vaccine Exclusion Criteria: No Exclusion Criteria Past Medical History Past Medical History CARDIAC: Negative Cardiac Disorders or Congestive Heart Failure RESPIRATORY: Positive Asthma; Negative Chronic Obstructive Pulmonary Disease (COPD) GENITOURINARY: Negative Renal Disease ENDOCRINE: Positive Diabetes Mellitus Type 2; Negative Diabetes Mellitus Type 1 HEMATOLOGIC: Negative Sickle Cell Disease Surgical History SURGICAL: Positive Section Social History SMOKING STATUS: Smoking status: Never smoker ALCOHOL: Alcohol Intake: Never HOUSING: Housing: House LIVES WITH: Lives With: Spouse Patient Portal Questionaires PHQ-9 PHQ-2 Over the last 2 weeks, how often have you been bothered by any of the following problems? 1. Little interest or pleasure in doing things: not at all PHQ-9 8. Moving or speaking so slowly that other people could have noticed? - Or the opposite - being so fidgety or restless that you have been moving around a lot more than usual: not at all Source: Developed by Drs. Ramirez Courtney, Scarlett Givens, Charly Quintero and colleagues, with an educational brianne from [employer]. Social History Living Situation History Housing: House Tobacco History Smoking Status: Never smoker Alcohol History Alcohol Intake: Never Domestic Abuse History Do You Feel Safe at Home: Yes Review of Systems Report any current symptoms Only answer those that you have currently: Past Medical History Past Medical History Have you ever been diagnosed with any of the following: Cardiology Problems Congestive Heart Failure: No Respiratory Problems Chronic Obstructive Pulmonary Disease (COPD): No Asthma: Yes Genital/Urinary Problems Renal Disease: No Endocrine Problems Diabetes Mellitus Type 1: No Diabetes Mellitus Type 2: Yes Blood Problems Sickle Cell Disease: No History of Present Illness HPI Narrative 55-year-old female with significant past medical history of diabetes mellitus on metformin presented to the hospital with chief complaints of fever, shortness of breath and cough since 4 days and admitted in the hospital on 03/01/2025 for cocci pneumonia. Chest CTA showed extensive miliary type pneumonia and is negative for pulmonary embolism. Tested negative for influenza and COVID. Patient was admitted in isolation for TB rule out. Blood cultures, sputum cultures came back negative. Tested negative for AFB. Initial QuantiFERON came back indeterminate but later repeat sample for QuantiFERON TB came back negative. Echo showed normal LV size and function with EF 55 to 60%. Cocci IgM came back negative on 03/01, 03/03 and repeat cocci on 03/05/2025 came back positive. Infectious diseases Dr. Barrientos is consulted and he recommended to continue fluconazole. Despite on fluconazole 400 mg patient oxygen needs are high and patient is on high flow for which Dr Barrientos recommended amphotericin B but unfortunately after 2 days patient developed an NARESH following which amphotericin B is stopped and patient is started on fluconazole 800 Mg. Slowly patient is weaned off from high flow oxygen to oxy mask and then to nasal cannula. At the time of discharge patient is on 2 L oxygen through nasal can nula and is able to tolerate physical therapy well. Patient is being discharged on 2 L oxygen, 800 mg fluconazole to home on 03/16/2025 : Patient came for follow-up to the clinic for her cocci pneumonia. Patient stated that she is doing well and is using oxygen only when she is short of breath. Also endorsed that she is using pulse oximeter which showed saturations of around 94%. In the clinic, the saturation is 94% on room air. Patient still endorses that she had mild cough but became better since she was discharged home. Able to tolerate medications. Denies any other complaints. Also requested for documentation to get sick leave from the work for 3 months. 04/09/2025: Came with son and daughter. Patient came for follow-up on her cocci pneumonia. Patient stated that she is doing well and her cough is subsiding but still having occasional shortness of breath for which she is using oxygen at night as needed. Denies any other complaints and is able to tolerate medicatio ns well. Continuing to take the fluconazole and metformin as directed. 06/08/2025: Came with her daughter who helped in interpretation and also took the help of coastal and estuary specialist. Came for regular follow-up visit. Saturating well on room air. Endorsed that patient noticed to have high blood pressures at home during which she noted to have headache also. But blood pressures during hospitalization and during this visit is within normal limits. Monitoring blood pressure with the help of wristband which is not that accurate and recommended to use a blood pressure cuff to check the blood pressure. Denies shortness of breath and cough. Last labs were done on 05/17/2025 which showed CBC and CMP within normal effect. Lipid profile showed elevated triglycerides and cholesterol but lipid profile from 15 days ago is normal could be some lab error. Will repeat lipid profile later sometime and ordered atorvastatin 20 Mg as patient also had history of diabetes mellitus. Repeat CT chest is ordered to rule out any cavitary lesions. 07/20/2025: Came with her daughter for follow-up visit. Denies any other complaints. Complaining of occasional shortness of breath and using on and off oxygen if needed. Complaining of back pain. Still taking fluconazole 400 mg once daily. Still not going to work. Recommended for some documentation in need of social security purposes for the sick leave. Recommended to continue fluconazole 09/04/2025. Patient did not undergo CT chest and recommended to follow-up with that again during this visit. Review of Systems Review of Systems Systems Reviewed: All systems reviewed, normal except as documented Objective/Exam Narrative Physical exam: General: Awake. HEENT: Normocephalic, atraumatic, mucous membranes moist. Heart: Regular rate and rhythm, no murmurs. Lungs: Clear to auscultation with no wheezing or crackles. Abdomen: Soft, nondistended, nontender, positive bowel sounds. ?No guarding or rebound tenderness. Neurologic: Alert and oriented x3, no gross neurological deficit, and patient able to move all 4 extremities. Extremities: No edema. Skin: No rash or ecchymoses. Assessment & Plan Diagnosis / Problem List (1) Low back ache: Status: Acute Assessment & Plan: complaining of low back ache Noted no tenderness Plan: - Baclofen and lidocaine patch is ordered (2) Coccidioidomycosis, primary pulmonary: Status: Acute Assessment & Plan: - Patient was diagnosed with cocci on 03/05/2025 for which patient was started on fluconazole 400 Mg as patient had severe cocci pneumonia and later the dose is increased to 800 Mg as patient pneumonia did not improve even with amphotericin B. After starting 800 Mg fluconazole patient was weaned off to nasal oxygen from high flow during the hospital admission - Came for follow-up to the clinic Plan: - Recommended to continue fluconazole 400mg once daily till 09/04/2025 - Repeat LFT ordered during last visit is within normal limits - Ordered CT chest to look for residual lesions from cocci - to R/O cavity (3) Diabetes mellitus: Status: Acute Assessment & Plan: - Patient is using metformin 500mg ER once daily and A1c is 6.1 as of 03/02/2025 Plan: - Recommended to cotinue the same medication - Educated on diet and exercise Additional Assessment Attending note: I, Fan Saldivar MD, attest that I was physically present for the lewis portions of the service and evaluated the patient with the resident and I reviewed and discussed the case with the resident and agree with the resident's findings and plans of care as documented above. Fan Saldivar MD Physician Billing Established Patient Established Patient: E/M Level 3-CPT 49777 Office Procedures [facility] Level of Care Nursing/Assessment Patient Status: Established Patient Nursing Assessment/Reassessment: Medication Reconciliation, Update PMH in EMR and Vital Signs Coordination of Care: Complex Care and Chronic Disease 1-5, Results/Orders obtained and Staff clarify orders Established Patient Charge Established Patient Point Assignment: 70 Established Patient Point Charge: Level 2 (40-75)
== END 2025-07-20 10:44 | disposition home or self-care (01) ==
LOC: HODAHC 09:53
PROVIDERS: Supervising Provider Internal Medicine
DX: M54.50 Low back pain, unspecified (principal); B38.2 Pulmonary coccidioidomycosis, unspecified; E11.9 Type 2 diabetes mellitus without complications; Z79.84 Long term (current) use of oral hypoglycemic drugs
CPT/HCPCS: 99212; G0463

== ENCOUNTER → 2025-08-10 | Outpatient (CLI) | payer MEDICAID, SELFPAY ==
--- NOTE | 2025-08-10 17:00 | XR_ITS ---
Examination: CT chest, without intravenous contrast. Sagittal and coronal 2-D reconstructions. Exam date and time: August 10, 2025, 1717 hrs., Comparison March 01, 2025 Indications: Diagnosis coccidiomycosis diagnosed March 01, 2025 CTDI:vol (mGy) 12.3 DLP: (mGycm) 423 Technique: Multiple 3.0 mm axial sections of the chest to been obtained. Bone and lung density settings are obtained. Sagittal and coronal 2-D reconstructions have been obtained. Low dose protocols were performed. One or more of the following dose reduction techniques were used; automated exposure control, adjustment of the mA and/or KV according to patient size, use of iterative reconstruction technique. Findings: No thoracic aortic aneurysmal dilatation Pulmonary artery segments are not enlarged. No paratracheal tracheobronchial or bronchopulmonary adenopathy. The miliary nodular pattern throughout the lungs on the March 01, 2025 exam no longer identified No focal visualized liver or splenic lesions Contracted gallbladder No pancreatic or adrenal mass Impression: The miliary nodular pattern throughout the lungs on the CT chest March 01, 2025 no longer identified No active parenchymal disease
== END | disposition home or self-care (01) ==
PROVIDERS: PCP Internal Medicine
DX: B38.2 Pulmonary coccidioidomycosis, unspecified (principal)
CPT/HCPCS: 71250

== ENCOUNTER 2025-09-17 13:17 | Outpatient (AMB) | payer MEDICAID, SELFPAY ==
[2025-09-17 13:26] VITALS: BP 113/78; PULSE 85; RESP 16; TEMP 36.4; O2SAT 95; BMI 29.6
--- NOTE | 2025-09-17 13:26 | PD.RESCLINIC ---
Vital Signs 09/17/25 13:26 Height 1.65 m Height Method Stated Weight 80.739 kg Weight Measurement Method Standing Scale BMI 29.6 BP 113/78 Blood Pressure Source Automatic Cuff Blood Pressure Location Right Upper Arm Position Sitting Respiration 16 Pulse 85 Pulse Source Monitor Temp 97.6 F Temp Source Temporal Artery Scan Pulse Oximetry (%) 95 Oxygen Delivery Method Room Air Allergies/Meds Allergies & Medications Allergies No Known Allergies Allergy (Verified 09/17/25 13:28) Medication Reconciliation fluconazole 200 mg tablet 800 mg (4 x 200 mg) PO QDAY #120 tabs 04/09/25 [Rx Confirmed 09/17/25] baclofen 5 mg tablet 5 mg PO QDAY PRN muscle spasm #7 tabs 07/20/25 [Rx Confirmed 09/17/25] lidocaine 4 % topical patch (AsperFlex (lidocaine)) 1 patch topical QDAY PRN pain #5 ea 07/20/25 [Rx Confirmed 09/17/25] atorvastatin 20 mg tablet 20 mg PO QHS #30 tabs 09/17/25 [Rx] metformin 500 mg tablet,extended release 24 hr 500 mg PO DAILY #30 tabs 09/17/25 [Rx] MA Intake Visit Data Collection New Patient or Established: Established Patient (seen at [facility] within 3 years) Seen by Clinical Staff ONLY (RN/MA): No PCP or OBGYN visit in last 3 months: Yes Do You Feel Safe at Home: Yes Authorities Contacted: N/A Smoking Status Smoking Status: Never smoker Immunization / Flu Flu Vaccine in the Last 12 Months: No Flu Vaccine Exclusion Criteria: No Exclusion Criteria Past Medical History Past Medical History CARDIAC: Negative Cardiac Disorders or Congestive Heart Failure RESPIRATORY: Positive Asthma; Negative Chronic Obstructive Pulmonary Disease (COPD) GENITOURINARY: Negative Renal Disease ENDOCRINE: Positive Diabetes Mellitus Type 2; Negative Diabetes Mellitus Type 1 HEMATOLOGIC: Negative Sickle Cell Disease Surgical History SURGICAL: Positive Section Social History SMOKING STATUS: Smoking status: Never smoker ALCOHOL: Alcohol Intake: Never HOUSING: Housing: House LIVES WITH: Lives With: Spouse Patient Portal Questionaires PHQ-9 PHQ-2 Over the last 2 weeks, how often have you been bothered by any of the following problems? 1. Little interest or pleasure in doing things: not at all PHQ-9 8. Moving or speaking so slowly that other people could have noticed? - Or the opposite - being so fidgety or restless that you have been moving around a lot more than usual: not at all Source: Developed by Drs. Ramirez Courtney, Scarlett Givens, Charly Quintero and colleagues, with an educational brianne from [employer]. Social History Living Situation History Housing: House Tobacco History Smoking Status: Never smoker Alcohol History Alcohol Intake: Never Domestic Abuse History Do You Feel Safe at Home: Yes Review of Systems Report any current symptoms Only answer those that you have currently: Past Medical History Past Medical History Have you ever been diagnosed with any of the following: Cardiology Problems Congestive Heart Failure: No Respiratory Problems Chronic Obstructive Pulmonary Disease (COPD): No Asthma: Yes Genital/Urinary Problems Renal Disease: No Endocrine Problems Diabetes Mellitus Type 1: No Diabetes Mellitus Type 2: Yes Blood Problems Sickle Cell Disease: No History of Present Illness HPI Narrative 55-year-old female with significant past medical history of diabetes mellitus on metformin presented to the hospital with chief complaints of fever, shortness of breath and cough since 4 days and admitted in the hospital on 03/01/2025 for cocci pneumonia. Chest CTA showed extensive miliary type pneumonia and is negative for pulmonary embolism. Tested negative for influenza and COVID. Patient was admitted in isolation for TB rule out. Blood cultures, sputum cultures came back negative. Tested negative for AFB. Initial QuantiFERON came back indeterminate but later repeat sample for QuantiFERON TB came back negative. Echo showed normal LV size and function with EF 55 to 60%. Cocci IgM came back negative on 03/01, 03/03 and repeat cocci on 03/05/20[address] came back [address]. Infectious diseases Dr. Barrientos is consulted and he recommended to continue fluconazole. Despite on fluconazole 400 mg patient oxygen needs are high and patient is on high flow for which Dr Barrientos recommended amphotericin B but unfortunately after 2 days patient developed an NARESH following which amphotericin B is stopped and patient is started on fluconazole 800 Mg. Slowly patient is weaned off from high flow oxygen to oxy mask and then to nasal cannula. At the time of discharge patient is on 2 L oxygen through nasal cannula and is able to tolerate physical therapy well. Patient is being discharged on 2 L oxygen, 800 mg fluconazole to home on 03/16/2025 : Patient came for follow-up to the clinic for her cocci pneumonia. Patient stated that she is doing well and is using oxygen only when she is short of breath. Also endorsed that she is using pulse oximeter which showed saturations of around 94%. In the clinic, the saturation is 94% on room air. Patient still endorses that she had mild cough but became better since she was discharged home. Able to tolerate medications. Denies any other complaints. Also requested for documentation to get sick leave from the work for 3 months. 04/09/2025: Came with son and daughter. Patient came for follow-up on her cocci pneumonia. Patient stated that she is doing well and her cough is subsiding but still having occasional shortness of breath for which she is using oxygen at night as needed. Denies any other complaints and is able to tolerate medications well. Continuing to take the fluconazole and metformin as directed. 06/08/2025: Came with her daughter who helped in interpretation and also took the help of trade economist. Came for regular follow-up visit. Saturating well on room air. Endorsed that patient noticed to have high blood pressures at home during which she noted to have headache also. But blood pressures during hospitalization and during this visit is within normal limits. Monitoring blood pressure with the help of wristband which is not that accurate and recommended to use a blood pressure cuff to check the blood pressure. Denies shortness of breath and cough. Last labs were done on 05/17/2025 which showed CBC and CMP within normal effect. Lipid profile showed elevated triglycerides and cholesterol but lipid profile from 15 days ago is normal could be some lab error. Will repeat lipid profile later sometime and ordered atorvastatin 20 Mg as patient also had history of diabetes mellitus. Repeat CT chest is ordered to rule out any cavitary lesions. 07/20/2025: Came with her daughter for follow-up visit. Denies any other complaints. Complaining of occasional shortness of breath and using on and off oxygen if needed. Complaining of back pain. Still taking fluconazole 400 mg once daily. Still not going to work. Recommended for some documentation in need of social security purposes for the sick leave. Recommended to continue fluconazole 09/04/2025. Patient did not undergo CT chest and recommended to follow-up with that again during this visit. 09/17/2025: Came for regular follow up. Office Procedures [facility] Level of Care Nursing/Assessment Patient Status: Established Patient Nursing Assessment/Reassessment: Medication Reconciliation, Update PMH in EMR and Vital Signs Coordination of Care: Complex Care and Chronic Disease 1-5, Complex Care/Chronic Disease 5 or more, Consent,records obtained, informed consent, Lab and Imaging orders, Results/Orders obtained and Staff clarify orders Established Patient Charge Established Patient Point Assignment: 125 Established Patient Point Charge: Level 4 ([id number])
== END 2025-09-17 14:03 | disposition home or self-care (01) ==
LOC: HODAHC 13:17
PROVIDERS: Supervising Provider Internal Medicine
DX: Z09 Encounter for follow-up examination after completed treatment for conditions other than malignant neoplasm (principal); Z87.01 Personal history of pneumonia (recurrent); E11.9 Type 2 diabetes mellitus without complications; Z79.84 Long term (current) use of oral hypoglycemic drugs; Z79.899 Other long term (current) drug therapy
CPT/HCPCS: 99214; G0463